=== PATIENT | female | born 1945 | race Caucasian/White ===

== ENCOUNTER → 2018-03-12 08:55 | Outpatient (CLI) | payer MEDICARE, OTHER, SELFPAY ==
--- NOTE | 2018-03-12 08:55 | DT_ITS ---
This patient was seen during an EMR downtime March 12, 2018 - March 19, 2018. This patient may have a combination of paper and electronic documentation or all paper documentation. All documentation is viewable within the e-chart portion of [facility] for each patient visit.
== END ==
PROVIDERS: Visit Provider Internal Medicine Cardiovascular Disease
DX: I49.9 Cardiac arrhythmia, unspecified (principal); I49.40 Unspecified premature depolarization
CPT/HCPCS: 93225; 93226

== ENCOUNTER → 2018-03-27 07:54 | Outpatient (CLI) | payer MEDICARE, OTHER, SELFPAY ==
[2018-03-27 09:57] LABS: AST(SGOT) 14 U/L (15-37); Alanine Aminotransfer ALT/SGPT 16 U/L (16-61); Albumin, Serum 3.7 g/dL (3.2-5.0); Alkaline Phosphatase 93 U/L (45-117); Cholesterol 190 mg/dL (200); Globulin 3.2 g/dL (2.2-4.2); High Density Lipoprotein 52 mg/dL; Protein, Total 6.9 g/dL (6.4-8.2); Triglycerides 142 mg/dL; Very Low Density Lipoprotein 28 mg/dL (5-40)
== END ==
PROVIDERS: Visit Provider Internal Medicine Cardiovascular Disease
DX: I35.9 Nonrheumatic aortic valve disorder, unspecified (principal); I49.49 Other premature depolarization; I36.1 Nonrheumatic tricuspid (valve) insufficiency; I34.0 Nonrheumatic mitral (valve) insufficiency; E78.5 Hyperlipidemia, unspecified
CPT/HCPCS: 36415; 80061; 80076

== ENCOUNTER 2019-03-12 18:13 | Emergency (ER) | payer OTHER, MEDICARE, SELFPAY ==
[2019-03-12 18:14] VITALS: BP 158/82; PULSE 80; RESP 18; TEMP 36.7; O2SAT 96; BMI 25.7
--- NOTE | 2019-03-12 18:38 | RAD_ITS ---
STUDY: X-RAY CHEST REASON FOR EXAM: Female, 73 years old. Posttraumatic pain TECHNIQUE: PA and lateral COMPARISON: None. FINDINGS: The lungs are clear and expanded. There is no demonstrated pleural abnormality. Normal size heart. Normal mediastinum and leo. Normal visualized pulmonary arteries. Normal visualized aortic arch and descending thoracic aorta. Dorsal spine demonstrates mild spondylosis. Normal visualized ribs, clavicles, and shoulders. There is no demonstrated abnormality of the visualized soft tissue structures of the upper abdomen. RAD/Chest PA and Lateral IMPRESSION: No acute cardiopulmonary pathology. Electronically Signed: Talib Garcia MD at 19:33 EDT , Service support ,
--- NOTE | 2019-03-12 18:38 | RAD_ITS ---
STUDY: X-RAY - THORACIC SPINE REASON FOR EXAM: Female, 73 years old. Trauma TECHNIQUE: 2 view(s) of the thoracic spine were obtained. COMPARISON: None. FINDINGS: Normal kyphosis of the thoracic spine. There is no substantial scoliosis. No evidence for acute fracture or subluxation. Disc space heights are well-maintained although there is mild multilevel osteophytic spurring. The soft tissue structures are unremarkable. RAD/Thoracic Spine 2 Views IMPRESSION: Mild spondylosis.. No evidence for acute fracture or subluxation. Electronically Signed: Talib Garcia MD at 19:32 EDT , Service support ,
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
[2019-03-12 20:05] VITALS: BP 146/68; PULSE 80; RESP 18; O2SAT 98
== END 2019-03-12 20:09 | disposition home or self-care (01) ==
PROVIDERS: Emergency Provider Emergency Medicine
DX: S20.219A Contusion of unspecified front wall of thorax, initial encounter (principal); S29.012A Strain of muscle and tendon of back wall of thorax, initial encounter; S82.831A Other fracture of upper and lower end of right fibula, initial encounter for closed fracture; V49.49XA Driver injured in collision with other motor vehicles in traffic accident, initial encounter; Y93.89 Activity, other specified; Y92.410 Unspecified street and highway as the place of occurrence of the external cause
CPT/HCPCS: 71046; 72070; 73610; 99285

== ENCOUNTER → 2020-04-07 09:25 | Outpatient (CLI) | payer MEDICARE, OTHER, SELFPAY ==
[2020-03-27 14:02] VITALS: BMI 23.0
== END ==
PROVIDERS: Referring Provider Internal Medicine Cardiovascular Disease; Visit Provider Internal Medicine Cardiovascular Disease
DX: I49.1 Atrial premature depolarization (principal); I49.3 Ventricular premature depolarization; I35.9 Nonrheumatic aortic valve disorder, unspecified; I34.0 Nonrheumatic mitral (valve) insufficiency; I36.1 Nonrheumatic tricuspid (valve) insufficiency
CPT/HCPCS: 93225; 93226

== ENCOUNTER → 2020-04-16 07:44 | Outpatient (CLI) | payer MEDICARE, OTHER, SELFPAY ==
[2020-03-27 14:02] VITALS: BMI 23.0
[2020-04-16 08:45] LABS: AST(SGOT) 15 U/L (15-37); Alanine Aminotransfer ALT/SGPT 24 U/L (13-56); Albumin, Serum 3.8 g/dL (3.2-5.0); Alkaline Phosphatase 95 U/L (45-117); Anion Gap 4 (5-15); BUN 21 mg/dL (7-18); BUN/Creat Ratio 28.3 RATIO (10-20); Bilirubin, Direct 0.18 mg/dL (0.00-0.30); Chloride 107 mmol/L (98-107); Cholesterol 211 mg/dL (200); Creatinine, Serum 0.74 mg/dL (0.55-1.02); EST Glomerular Filtration Rate 81 mL/min (>60); Est Glom Filt Rate - Afr Amer 98 mL/min (>60); Globulin 3.6 g/dL (2.2-4.2); Glucose 98 mg/dL (74-106); High Density Lipoprotein 66 mg/dL; Magnesium 2.4 mg/dL (1.6-2.6); Potassium 4.5 mmol/L (3.5-5.1); Protein, Total 7.4 g/dL (6.4-8.2); Sodium Level 142 mmol/L (136-145); Triglycerides 112 mg/dL; Very Low Density Lipoprotein 22 mg/dL (5-40)
== END ==
PROVIDERS: Referring Provider Internal Medicine Cardiovascular Disease; Visit Provider Internal Medicine Cardiovascular Disease
DX: I48.92 Unspecified atrial flutter (principal); I35.9 Nonrheumatic aortic valve disorder, unspecified; I36.1 Nonrheumatic tricuspid (valve) insufficiency; I34.0 Nonrheumatic mitral (valve) insufficiency
CPT/HCPCS: 36415; 80048; 80061; 80076; 83735

== ENCOUNTER → 2020-04-23 13:48 | Outpatient (CLI) | payer MEDICARE, OTHER, SELFPAY ==
[2020-03-27 14:02] VITALS: BMI 23.0
--- NOTE | 2020-04-23 13:49 | ECHOD_ITS ---
Reason For Study: VALVULAR DISORDER Procedure This was a 2D Doppler, Color Flow transthoracic echocardiogram. The exam was of adequate technical quality. Exam performed in department. Left Ventricle Normal LV size. Left ventricular systolic function is normal. The estimated ejection fraction is 60 %. No evidence for diastolic dysfunction. No regional wall motion abnormalities noted. Right Ventricle Normal RV size. Normal systolic function. Atria Normal left atrium. The right atrium is mildly enlarged. No doppler evidence for ASD. Mitral Valve There is no mitral annular calcification. Anterior leaflet diffuse mitral valve thickening. Mild focal mitral valve calcification of the anterior leaflet. Moderate (2+) mitral valve insufficiency. Tricuspid Valve Normal tricuspid valve. Mild to moderate (1-2+) tricuspid valve insufficiency. Right ventricular systolic pressure estimated to be 31 mmHg. Aortic Valve Trisinus/trileaflet aortic valve. Mild diffuse aortic valve thickening. Mild focal aortic valve calcification. Aortic sclerosis, no stenosis. Pulmonic Valve The pulmonic valve is not well visualized. Trivial pulmonic valve insufficiency. Great Vessels Normal sized aortic root. Pericardium/Pleural No pericardial effusion. MMode/2D Measurements & Calculations RVDd: 3.2 cm LVOT diam: 1.9 cm Ao root diam: 3.5 cm LVOT area: 2.8 cm2 LAV(MOD-bp): 34.9 ml LA dimension(2D): 3.0 cm LA A4 area: 12.2 cm2 LAV(MOD-bp) Indexed: 22.3 ml/m2 LAV(MOD-sp2): 36.5 ml LAV(MOD-sp4): 27.9 ml RA A4 area: 16.9 cm2 Time Measurements MV dec time: 0.28 sec Doppler Measurements & Calculations MV E max spencer: 30.2 cm/sec Lat Peak E' Spencer: 5.2 cm/sec Med Peak E' Spencer: 4.2 cm/sec MV A max spencer: 79.7 cm/sec E/E' lat: 5.8 E/E' med: 7.2 MV E/A: 0.38 Ao V2 max: 90.1 cm/sec LV V1 max: 71.6 cm/sec PA V2 max: 52.5 cm/sec Ao max P.3 mmHg LV V1 max P.0 mmHg ARACELI(V,D): 2.2 cm2 PI end-d spencer: 101.1 cm/sec TR max spencer: 265.8 cm/sec TR max P.3 mmHg Interpretation Summary Left ventricular systolic function is normal. The estimated ejection fraction is 60 %. The right atrium is mildly enlarged. Anterior leaflet diffuse mitral valve thickening. Mild focal mitral valve calcification of the anterior leaflet. Moderate (2+) mitral valve insufficiency. Mild to moderate (1-2+) tricuspid valve insufficiency. Aortic sclerosis, no stenosis. Trivial pulmonic valve insufficiency. Right ventricular systolic pressure estimated to be 31 mmHg. No evidence for diastolic dysfunction. Ordering Physician: Krzysztof Salomon Referring Physician: LAY ESCOBAR Performed By: Samira Sánchez, SHANNON, RVT
== END ==
PROVIDERS: Referring Provider Internal Medicine Cardiovascular Disease; Visit Provider Internal Medicine Cardiovascular Disease
DX: I49.49 Other premature depolarization (principal); I49.3 Ventricular premature depolarization; I35.9 Nonrheumatic aortic valve disorder, unspecified; I34.0 Nonrheumatic mitral (valve) insufficiency; I36.1 Nonrheumatic tricuspid (valve) insufficiency
CPT/HCPCS: 93306

== ENCOUNTER → 2020-05-19 10:10 | Outpatient (CLI) | payer MEDICARE, OTHER, SELFPAY ==
[2020-03-27 14:02] VITALS: BMI 23.0
[2020-05-19 10:45] LABS: Absolute Lymphocyte Count 1.63 X10^3/uL (0.83-4.51); Absolute Neutrophil Count 4.1 X10^3/uL (2.0-7.7); Basophil# 0.05 X10^3/uL; Basophil% 0.8 % (0-1); Eosinophil# 0.07 X10^3/uL; Eosinophils% 1.1 % (0-5); Hematocrit 41.8 % (37-47); Hemoglobin 13.5 g/dL (12.0-15.0); Lymphocyte # 1.63 X10^3/ul (4.0); Lymphocyte % 25.5 % (19-41); Mean Corp Hgb Conc 32.3 g/dL (32-36); Mean Corpuscular Hgb 28.5 pg (27.0-32.0); Mean Corpuscular Volume 88.4 fL (81-99); Monocyte# 0.54 X10^3/uL; Monocyte% 8.5 % (0-10); NRBC Flagged by Analyzer 0 % (0-5); Neutrophil # 4.08 X10^3/uL (2.7-7.7); Neutrophil % 63.8 % (47-70); Platelet Count 262 K/mm3 (150-450); RBC Distribution Width SD 41.8 fl (35.1-43.9); Red Blood Count 4.73 M/mm3 (4.2-5.4); White Blood Count 6.4 K/mm3 (4.4-11.0)
== END ==
PROVIDERS: Referring Provider Physician Assistant Medical; Visit Provider Physician Assistant Medical
DX: R19.5 Other fecal abnormalities (principal)
CPT/HCPCS: 36415; 85025

== ENCOUNTER → 2020-05-20 06:06 | Outpatient (CLI) | payer MEDICARE, OTHER, SELFPAY ==
[2020-03-27 14:02] VITALS: BMI 23.0
== END ==
PROVIDERS: Referring Provider Physician Assistant Medical; Visit Provider Physician Assistant Medical
DX: R19.5 Other fecal abnormalities (principal)
CPT/HCPCS: 82274

== ENCOUNTER 2020-06-16 05:11 | Day surgery (SDC) | payer MEDICARE, OTHER, SELFPAY ==
[2020-06-01 13:56] VITALS: BMI 23.0
[2020-06-16] VITALS (10 sets, daily range): BP systolic 102–135; BP diastolic 63–94; PULSE 59–70; RESP 14–16; TEMP 35.9–36.3; O2SAT 94–100
--- NOTE | 2020-06-16 05:42 | PCM.HP.BLA ---
Problem List (1) Guaiac positive stools Status: Acute (2) Diarrhea Status: Acute Qualifiers: (3) Family history of malignant neoplasm of colon in father Status: Acute History and Physical Date of Admission: 06/16/20 Intake Visit Reasons: Blood in Stool Chief Complaint: positive stool occult blood Track Sweeper Required: No Is patient in pain?: No Allergies antidiarrheals Allergy (Severe, Uncoded 03/27/20 14:04) Hives Medications valacyclovir 1 gram tablet 1,000 mg PO QDAY 02/28/18 [History Confirmed 06/01/20] doxylamine succinate 25 mg tablet 25 mg PO QHS PRN 03/01/18 [History Confirmed 06/01/20] ibuprofen 200 mg capsule 200 mg PO QDAY cap 03/01/18 [History Confirmed 06/01/20] pramipexole 0.125 mg tablet 0.125 mg PO QHS 06/01/20 [History Confirmed 06/01/20] pramipexole 0.25 mg tablet 0.25 mg PO DAILY tab 06/01/20 [History Confirmed 06/01/20] [facility] Medical History (Updated 06/01/20 @ 14:[address] Madi Hobbs MD) Family history of malignant neoplasm of colon in father (Acute) Diarrhea (Acute) Guaiac positive stools (Acute) Pure hypercholesterolemia (Chronic) Paroxysmal atrial flutter (Acute) Nonrheumatic aortic valve disorder (Acute) Premature beats (Acute) Nonrheumatic tricuspid valve regurgitation (Acute) Nonrheumatic mitral valve regurgitation (Acute) Blood in stool (Acute) Positive occult stool blood test (Acute) Surgical History History of carpal tunnel surgery (Resolved) History of total hysterectomy (Resolved) Family History Grandmother Heart disease Social History (Updated 06/01/20 @ 14:[address] 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 The patient is referred by Dr. Krzysztof Salomon and by KATIA Whitman and a written copy my surgical consult will be returned to them. 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 She on a routine health care cardiac check was found to have atrial flutter. She was tested with a Holter monitor and echocardiogram. She has known mitral and tricuspid insufficiency. She had been on low-dose aspirin. She was asked to hold that she was initiated on Eliquis. Simultaneously however she was still on ibuprofen 200 mg a day. She noted onset of explosive diarrhea and it was quite dark. She was instructed to stop the Eliquis. She did take some Kaopectate which has completely stopped the diarrhea. As of May 19, 2020 her white blood cell count was 6.4 with a hemoglobin 13.5 hematocrit 41.8 platelet count of 262,000 and a normal differential. Her stool was Hemoccult positive. She does have a family history of colon cancer in her father. That was a rectal cancer. Her previous colonoscopy was [address] Bravo. She states that she herself has not had a history of colon polyps or malignancy. 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, is a 75 F who presents to the office today for ROS General General: Yes weight change; no appetite, fatigue, colon cancer, breast cancer or weakness HEENT HEENT: No difficulty swallowing, eye injury, eye surgery, swollen glands or hoarseness Endo Endocrine: No thyroid disease, diabetes mellitus, thyroid cancer, Hair loss, heat intolerance or cold intolerance Skin Skin: No rash or changing moles Breast Breast: No left breast lump, right breast lump, nipple discharge, breast pain, abnormal mammogram, abnormal US or breast enlargement Musc Musculoskeletal: Yes back problems and arthritis; no rheumatoid arthritis, gout or joint pain Cardio Cardiovascular: Yes heart disease and atrial fibrillation; no murmur, pacemaker, high blood pressure, heart attack, heart stent, palpitations, shortness of breat with exertion or chest pain Psych Psychiatric: No depression, anxiety or hearing voices Resp Respiratory: No shortness of breath, No sleep apnea, No cough, No COPD, No asthma, No emphysema, No wheezing Gastro Gastrointestinal: No abdominal pain, No nausea or vomiting, Yes diarrhea, Yes constipation, Yes blood in stool, Yes acid reflux, Yes hemorrhoids, No ulcers, No gallbladder problem, Yes black,tarry stools Guillaume Hematologic: Yes blood thinners, No blood disorders, No bleeding, No anemia, No blood clots Neuro Neurologic: No system reviewed and no additional complaints, except as docu, No as per HPI, No abnormal walking, No abnormal hearing, No abnormal movements, No abnormal speech, No behavioral changes, No burning sensations, No confusion, No seizure-like activity, No unsteadiness, No dizziness, No localized weakness, No frequent falls, No headache(s), No lack of coordination, No loss of vision, No memory loss, No numbness, No other visual disturbances, No radiating pain, No restless legs, No sensory deficit, No fainting, No tingling, No tremor(s), No weakness, No other Exam Const General: cooperative, healthy appearing, comfortable, no acute distress Nutritional Appearance: average body habitus Orientation: alert, awake HENMT Head: normal to inspection Chest Breast Palpation: No nipple discharge Resp Effort & Inspection: normal respiratory effort Auscultation: clear to auscultation bilaterally Cardio Rate: regular rate Rhythm: regular rhythm Heart Sounds: no murmurs GI Palpation: soft, no hepatosplenomegaly Auscultation: normal bowel sounds Neuro Cognition: normal cognition Extrem General: no calf tenderness Psych Affect: normal affect Assessment & Plan Problems 1. Guaiac positive stools R19.5 2. Diarrhea, unspecified type R19.7 3. Family history of malignant neoplasm of colon in father Z80.0 Plan 75-year-old female who had explosive dark diarrhea that was Hemoccult positive. At that time she had been placed on Eliquis and she was still taking ibuprofen. She has stopped the Eliquis and her stools resumed normal coloration. CBC is normal. She has a family history of colon cancer in her father. Previous colonoscopy 2011. Suspicious for possible NSAID associated gastritis. However with the features of presentation I am recommending to her a esophagogastroduodenoscopy with possible biopsy or polypectomy as well as a colonoscopy with possible biopsy or polypectomy as indicated. I have instructed her to stay off her ibuprofen. Further instructed her that if she does get resumed on future anticoagulant that acetaminophen would be a safer pain medication for her. She has had an opportunity ask and have questions answered. She is aware of the Covid-19 pandemic. She is aware that the [facility] is currently reporting a low local incidence. While awaiting COVID testing we will schedule her after the required timeline. Appreciate the opportunity of assisting with her surgical care Copy: Dr. Krzysztof Salomon and KATIA Whitman, and Dr. Lou Hobbs M.D., F.A.C.S. Coding Level of Care Code 43851 Diagnoses Guaiac positive stools R19.5 Diarrhea, unspecified type R19.7 ??Diarrhea type: unspecified type Family history of malignant neoplasm of colon in father Z80.0 I have re-examined the patient. There are no clinical changes since date of exam. Procedure Criteria Procedure Type: Elective COVID Risk Discussion: The surgeon/proceduralist and patient have discussed in detail the risk of exposure to and/or potential harm posed by the COVID-19 virus with having a surgery/procedure at this time versus the risk of delaying the surgery/procedure. It is not possible to know either the risk of delaying the surgery or procedure or chance of getting an infection with perfect accuracy, but a joint decision was made between the patient and the surgeon/proceduralist to proceed at this time with the scheduled surgery/procedure as indicated on the consent form.
[2020-06-16] MEDS: Lactated Ringers 1,000 ML 100 ML IV ×2 (06:19→07:33)
--- NOTE | 2020-06-16 06:30 | IMM_PTH ---
PATIENT: ELISA SELLERS LOC: EN U#:[id number] AGE/SX: 75/F ROOM: RE06/16/[address]: Dr. Madi Hobbs MD : 1945 BED: DIS: 06/16/2020 SPEC #: [id number] RECD: 06/16/20 14:15 STATUS: KAMRAN REJared #: [id number] MAKENNA: 06/16/20 06:[address]: Madi Hobbs DEPT: IMMUNOHISTOCHEMISTRY RECD BY: Estee Scott ENTERED: 06/16/20 14:15 SP TYPE: IMMUNO OTHR DR: Dr. Lou Parker, Tissues: B - Stomach, NOS Procedures: H Pylori (initial) PHYSICIAN & INSTITUTION [place] [id number] SPECIMEN INFORMATION: Tissue Source: B - Antrum biopsy Clinical Info: Guaiac positive stools, diarrhea Specimen Number: [id number] CPT code: 54560 METHODOLOGY: Deparaffinized sections of prefer/formalin-fixed tissue or PAP/DQ stained slides are incubated with monoclonal/polyclonal antibodies/oligonucleotide probes. Localization is made via biotin free immunoperoxidase method. Appropriate controls are performed and reacted as expected. Results on target cell population are indicated in the following table: RESULTS: ANTIBODY / CLONE RESULT Block B H Pylori (polyclonal) negative These tests were developed and their performance characteristics determined by [facility]. They may not have been cleared or approved by the U.S. Food and Drug Administration. The FDA has determined that such clearance or approval is not necessary. INTERPRETATION: B. Antrum biopsy: Negative for Helicobacter pylori organisms. AM:livia 06/17/20
--- NOTE | 2020-06-16 06:30 | EGD_PTH ---
PATIENT: ELISA SELLERS LOC: EN U#:[id number] AGE/SX: 75/F ROOM: RE06/16/[address]: Dr. Madi Hobbs MD : 1945 BED: DIS: 06/16/2020 SPEC #: [id number] RECD: 06/16/20 09:41 STATUS: KAMRAN SIDNEY #: [id number] MAKENNA: 06/16/20 06:[address]: Madi Hobbs DEPT: SURGICAL PATHOLOGY RECD BY: Erik Lindsey ENTERED: 06/16/20 11:05 SP TYPE: EGD BIOPSY OT DR: Dr. Lou Parker, DO Tissues: A - Duodenum, NOS B - Gastric mucous membrane C - Esophageal mucous membrane D - Gastric mucous membrane E - Esophageal mucous membrane F - COLON BIOPSY G - COLON BIOPSY Procedures: Special Stain Group I Surgery Specimen Level IV GMS Stain (control) HEADER OPERATION: Colonoscopy, EGD (MOD) PRE-OP DIAGNOSIS: Guaiac positive stools, diarrhea TISSUE SUBMITTED: A - Duodenum biopsy, B - Antrum biopsy for histo and H. pylori, C - Distal esophagus biopsy, D - EG junction biopsy, E - Mid esophagus biopsy, F - Random colonic biopsy, G - Splenic flexure polyp biopsy MICROSCOPIC DIAGNOSIS A. Duodenum, biopsy: No pathologic change. B. Gastric antrum, biopsy: Minimal chronic inflammation. See comment. C. Distal esophagus, biopsy: Minimal acute inflammation. Negative for fungal organisms. See microscopic description and comment. D. Gastroesophageal junction, biopsy: Fragments of benign squamous mucosa. No evidence of inflammation. E. Mid esophagus, biopsy: Mild acute inflammation. Negative for fungal organisms. See comment. F. Colon, random biopsy: No pathologic change. G. Colonic polyp at splenic flexure, biopsy: Fragments of tubular adenoma. AM:livia 06/17/20 COMMENT B. The results of immunohistochemistry for Helicobacter pylori will be reported separately ([id number]). C. GMS stain with matched control was used in the evaluation of this case. E. GMS stain with matched control was used in the evaluation of this case. MICROSCOPIC DESCRIPTION Slides are reviewed. C. Rare neutrophils are seen in the epithelium. GROSS DESCRIPTION A - Received in fixative is one container labeled with the patient's name and designated duodenum biopsy. The specimen consists of one irregular fragment of light higgins soft tissue that measures 0.4 x 0.3 x 0.1 cm. The specimen is totally submitted in one cassette. B - Received in fixative is one container labeled with the patient's name and designated antrum biopsy. The specimen consists of one irregular fragment of light higgins soft tissue that measures 0.3 x 0.3 x 0.1 cm. The specimen is totally submitted in one cassette. C - Received in fixative is one container labeled with the patient's name and designated distal esophagus biopsy. The specimen consists of multiple irregular fragments of light higgins soft tissue that in aggregate measure 1.3 x 0.5 x 0.1 cm. The specimen is totally submitted in one cassette. D - Received in fixative is one container labeled with the patient's name and designated EG junction biopsy. The specimen consists of one irregular fragment of light higgins soft tissue that measures 0.3 x 0.3 x 0.1 cm. The specimen is totally submitted in one cassette. E - Received in fixative is one container labeled with the patient's name and designated mid esophagus biopsy. The specimen consists of two irregular fragments of light higgins soft tissue that in aggregate measure 0.5 x 0.3 x 0.1 cm. The specimen is totally submitted in one cassette. F - Received in fixative is one container labeled with the patient's name and designated random colonic biopsy. The specimen consists of multiple irregular fragments of light higgins soft tissue that in aggregate measure 1.4 x 0.6 x 0.1 cm. The specimen is totally submitted in one cassette. G - Received in fixative is one container labeled with the patient's name and designated splenic flexure polyp biopsy. The specimen consists of one irregular fragment of light higgins soft tissue that measures 0.3 x 0.3 x 0.1 cm. The specimen is totally submitted in one cassette. / SJ:rg 06/16/20 TC:2 CPT: 15252 x7, 68114 x2
--- NOTE | 2020-06-16 07:02 | OP.EGD_ITS ---
Patient Name: Ariana Hutchinson Procedure Date: 06/16/2020 5:59 AM Date of : 1945 Age: 75 Procedure: Upper GI endoscopy Indications: Heme positive stool Providers: Madi Hobbs MD Referring MD: Lou Parker Medicines: Midazolam 2 mg IV, Meperidine 75 mg IV Complications: No immediate complications. Procedure: Pre-Anesthesia Assessment: - Prior to the procedure, a History and Physical was performed, and patient medications and allergies were reviewed. The patient's tolerance of previous anesthesia was also reviewed. The risks and benefits of the procedure and the sedation options and risks were discussed with the patient. All questions were answered, and informed consent was obtained. Prior Anticoagulants: The patient has taken Eliquis (apixaban). ASA Grade Assessment: II - A patient with mild systemic disease. After reviewing the risks and benefits, the patient was deemed in satisfactory condition to undergo the procedure. After obtaining informed consent, the endoscope was passed under direct vision. Throughout the procedure, the patient's blood pressure, pulse, and oxygen saturations were monitored continuously. The gastroscope was introduced through the mouth, and advanced to the second part of duodenum. The upper GI endoscopy was accomplished without difficulty. The patient tolerated the procedure well. Moderate Sedation: Moderate (conscious) sedation was personally administered by the endoscopist. The following parameters were monitored: oxygen saturation, heart rate, blood pressure, and response to care. Total physician intraservice time was 15 minutes. Scope In: 6:32:08 AM Scope Out: 6:37:14 AM Total Procedure Duration Time 0 hours 5 minutes 6 seconds Findings: Esophagitis with no bleeding was found 40 cm from the incisors. Biopsies were taken with a cold forceps for histology distal esophagus The mid esophagus was normal. Biopsies were taken with a cold forceps for histology. A medium-sized hiatal hernia was present. Biopsies were taken with a cold forceps for histology of the EG junction. The entire examined stomach was normal. Biopsies were taken with a cold forceps for histology. The examined duodenum was normal. Biopsies were taken with a cold forceps for histology. Impression: - Reflux esophagitis. Biopsied distal esophagus. - Normal mid esophagus. Biopsied. - Medium-sized hiatal hernia. Biopsied EG junction - Normal stomach. Biopsied. - Normal examined duodenum. Biopsied. Recommendation: - Discharge patient to home. - Resume previous diet. - Continue present medications. - Use Prilosec (omeprazole) 40 mg PO daily. These findings could have caused a hemocult positive result Procedure Code(s): --- Professional --- 39641, Esophagogastroduodenoscopy, flexible, transoral; with biopsy, single or multiple 71549, 59, Moderate sedation services provided by the same physician or other qualified health senior care assistant performing the diagnostic or therapeutic service that the sedation supports, requiring the presence of an independent trained observer to assist in the monitoring of the patient's level of consciousness and physiological status; initial 15 minutes of intraservice time, patient age 5 years or older Diagnosis Code(s): --- Professional --- K21.0, Gastro-esophageal reflux disease with esophagitis K44.9, Diaphragmatic hernia without obstruction or gangrene R19.5, Other fecal abnormalities CPT copyright 2017 [employer]. All rights reserved. The codes documented in this report are preliminary and upon security intern review may be revised to meet current compliance requirements. Madi Hobbs MD 06/16/2020 7:01:04 AM This report has been signed electronically. Number of Addenda: 0 Note Initiated On: 06/16/2020 5:59 AM
--- NOTE | 2020-06-16 07:02 | OP.CCLET_ITS ---
06/16/2020 Lou Parker Re : Upper GI endoscopy procedure for Ariana Hutchinson Dear Keith This procedure was performed on Tuesday, June 16, 2020. My impressions and recommendations are as follows: Impressions : - Reflux esophagitis. Biopsied distal esophagus. - Normal mid esophagus. Biopsied. - Medium-sized hiatal hernia. Biopsied EG junction - Normal stomach. Biopsied. - Normal examined duodenum. Biopsied. Recommendations : - Discharge patient to home. - Resume previous diet. - Continue present medications. - Use Prilosec (omeprazole) 40 mg PO daily. These findings could have caused a hemocult positive result My findings are described in the full procedure note, which is enclosed. If I can be of further assistance, please feel free to contact me at Doctor phone number(s): Work: . Sincerely, Madi Hobbs MD 06/16/2020 7:01:04 AM This report has been signed electronically.
--- NOTE | 2020-06-16 07:05 | OP.COLON_ITS ---
Patient Name: Ariana Hutchinson Procedure Date: 06/16/2020 6:37 AM Date of : 1945 Age: 75 Procedure: Colonoscopy Indications: Clinically significant diarrhea of unexplained origin, Heme positive stool Providers: Maid Hobbs MD Referring MD: Lou Parker Medicines: Midazolam 1 mg IV Patient Profile: Last Colonoscopy: 2011. Complications: No immediate complications. Procedure: Pre-Anesthesia Assessment: - Prior to the procedure, a History and Physical was performed, and patient medications and allergies were reviewed. The patient's tolerance of previous anesthesia was also reviewed. The risks and benefits of the procedure and the sedation options and risks were discussed with the patient. All questions were answered, and informed consent was obtained. Prior Anticoagulants: The patient has taken Eliquis (apixaban). ASA Grade Assessment: II - A patient with mild systemic disease. After reviewing the risks and benefits, the patient was deemed in satisfactory condition to undergo the procedure. After I obtained informed consent, the scope was passed under direct vision. Throughout the procedure, the patient's blood pressure, pulse, and oxygen saturations were monitored continuously. The pediatric colonoscope was introduced through the anus and advanced to the cecum, identified by appendiceal orifice and ileocecal valve. The colonoscopy was performed without difficulty. The patient tolerated the procedure well. The quality of the bowel preparation was good. The ileocecal valve and the appendiceal orifice were photographed. Moderate Sedation: Moderate (conscious) sedation was personally administered by the endoscopist. The following parameters were monitored: oxygen saturation, heart rate, blood pressure, and response to care. Total physician intraservice time was 15 minutes. Scope In: 6:39:24 AM Scope Withdrawal Time 0 hours 8 minutes 18 seconds Scope Out: 6:51:58 AM Total Procedure Duration Time 0 hours 12 minutes 34 seconds Findings: The digital rectal exam findings include non-thrombosed external hemorrhoids, non-thrombosed internal hemorrhoids and internal hemorrhoids that prolapse with straining, but spontaneously regress to the resting position (Grade II). A 5 mm polyp was found in the splenic flexure. The polyp was sessile. The polyp was removed with a cold biopsy forceps. Resection and retrieval were complete. Biopsies for histology were taken with a cold forceps from the entire colon for evaluation of microscopic colitis. Multiple diverticula were found in the sigmoid colon. Impression: - Non-thrombosed external hemorrhoids, non-thrombosed internal hemorrhoids and internal hemorrhoids that prolapse with straining, but spontaneously regress to the resting position (Grade II) found on digital rectal exam. - One 5 mm polyp at the splenic flexure, removed with a cold biopsy forceps. Resected and retrieved. Biopsied. - Diverticulosis in the sigmoid colon. Recommendation: - Discharge patient to home. - Resume previous diet. - Continue present medications. - Await pathology results. - Telephone my office for pathology results in 1 week. - Repeat colonoscopy in 5 years for surveillance based on pathology results. Procedure Code(s): --- Professional --- 85214, Colonoscopy, flexible; with biopsy, single or multiple 28715, 59, Moderate sedation services provided by the same physician or other qualified health patient care technician instructor performing the diagnostic or therapeutic service that the sedation supports, requiring the presence of an independent trained observer to assist in the monitoring of the patient's level of consciousness and physiological status; initial 15 minutes of intraservice time, patient age 5 years or older Diagnosis Code(s): --- Professional --- K64.1, Second degree hemorrhoids K64.4, Residual hemorrhoidal skin tags D12.3, Benign neoplasm of transverse colon (hepatic flexure or splenic flexure) R19.7, Diarrhea, unspecified R19.5, Other fecal abnormalities K57.30, Diverticulosis of large intestine without perforation or abscess without bleeding CPT copyright 2017 [employer]. All rights reserved. The codes documented in this report are preliminary and upon physical therapist center manager review may be revised to meet current compliance requirements. Madi Hobbs MD 06/16/2020 7:04:50 AM This report has been signed electronically. Number of Addenda: 0 Note Initiated On: 06/16/2020 6:37 AM
--- NOTE | 2020-06-16 07:05 | OP.CCLET_ITS ---
06/16/2020 Lou Parker Re : Colonoscopy procedure for Ariana Hutchinson Dear Keith This procedure was performed on Tuesday, June 16, 2020. My impressions and recommendations are as follows: Impressions : - Non-thrombosed external hemorrhoids, non-thrombosed internal hemorrhoids and internal hemorrhoids that prolapse with straining, but spontaneously regress to the resting position (Grade II) found on digital rectal exam. - One 5 mm polyp at the splenic flexure, removed with a cold biopsy forceps. Resected and retrieved. Biopsied. - Diverticulosis in the sigmoid colon. Recommendations : - Discharge patient to home. - Resume previous diet. - Continue present medications. - Await pathology results. - Telephone my office for pathology results in 1 week. - Repeat colonoscopy in 5 years for surveillance based on pathology results. My findings are described in the full procedure note, which is enclosed. If I can be of further assistance, please feel free to contact me at Doctor phone number(s): Work: . Sincerely, Madi Hobbs MD 06/16/2020 7:04:50 AM This report has been signed electronically.
== END 2020-06-16 08:26 | disposition home or self-care (01) ==
LOC: EN 05:12 → AC 05:20
PROVIDERS: Visit Provider Surgery
PROC: 0DJD8ZZ Inspection of Lower Intestinal Tract, Via Natural or Artificial Opening Endoscopic (ICD-10-PCS; CPT 45378; principal; 2020-06-16 06:25)
DX: K21.0 Gastro-esophageal reflux disease with esophagitis (principal); K44.9 Diaphragmatic hernia without obstruction or gangrene; D12.3 Benign neoplasm of transverse colon; K64.1 Second degree hemorrhoids; K64.4 Residual hemorrhoidal skin tags; K57.30 Diverticulosis of large intestine without perforation or abscess without bleeding; R19.5 Other fecal abnormalities; R19.7 Diarrhea, unspecified; I08.3 Combined rheumatic disorders of mitral, aortic and tricuspid valves; E78.00 Pure hypercholesterolemia, unspecified; Z79.01 Long term (current) use of anticoagulants; Z79.1 Long term (current) use of non-steroidal anti-inflammatories (NSAID); Z11.59 Encounter for screening for other viral diseases; Z80.0 Family history of malignant neoplasm of digestive organs
CPT/HCPCS: 43239; 45380; 87635; 88305; 88312; 88342; 99152; 99153; C9803; J7120; U0003

== ENCOUNTER 2022-01-12 14:25 | Emergency (ER) | payer OTHER, MEDICARE, SELFPAY ==
[2022-01-12 14:26] VITALS: BP 138/93; PULSE 117; RESP 22; TEMP 36.5; O2SAT 97; BMI 24.8
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
--- NOTE | 2022-01-12 14:46 | EKG12_ITS ---
Test Reason : Blood Pressure : / mmHG Vent. Rate : 080 BPM Atrial Rate : 080 BPM P-R Int : 130 ms QRS Dur : 080 ms QT Int : 390 ms P-R-T Axes : 058 040 028 degrees QTc Int : 449 ms Normal sinus rhythm Low voltage QRS Borderline ECG Confirmed by BETHANY GOODMAN, FLAVIA ([id number]), slot editor RADHA MARTINEZ ([id number]) on 01/19/2022 10:25:17 AM Referred By: VICENTA/CORNEL Confirmed By:FLAVIA SIMS MD
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
[2022-01-12 15:51] VITALS: PULSE 109; RESP 16
== END 2022-01-12 15:52 | disposition home or self-care (01) ==
PROVIDERS: Emergency Provider Student in an Organized Health Care Education/Training Program; Visit Provider Student in an Organized Health Care Education/Training Program
DX: S80.12XA Contusion of left lower leg, initial encounter (principal); I48.0 Paroxysmal atrial fibrillation; V40.9XXA Unspecified car occupant injured in collision with pedestrian or animal in traffic accident, initial encounter; Y93.89 Activity, other specified; Z79.01 Long term (current) use of anticoagulants
CPT/HCPCS: 70450; 72125; 73590; 93005; 99284

== ENCOUNTER → 2022-02-24 | Outpatient (CLI) | payer MEDICARE, OTHER, SELFPAY ==
--- NOTE | 2022-02-24 07:39 | ECHOD_ITS ---
Reason For Study: MURMUR Procedure This was a 2D Doppler, Color Flow transthoracic echocardiogram. Exam performed in department. Left Ventricle Normal LV size. Left ventricular systolic function is normal. The estimated ejection fraction is 60 %. Diastolic function is indeterminate. No regional wall motion abnormalities noted. Right Ventricle Normal RV size. Normal systolic function. Atria Normal left atrium. The right atrium is mildly enlarged. No doppler evidence for ASD. Mitral Valve There is no mitral annular calcification. Mild diffuse mitral valve thickening. Equivocal mitral valve prolapse. Mild (1+) mitral valve insufficiency. Tricuspid Valve Normal tricuspid valve. Moderate (2+) tricuspid valve insufficiency. Right ventricular systolic pressure estimated to be 37 mmHg. Aortic Valve Trisinus/trileaflet aortic valve. Mild diffuse aortic valve thickening. Aortic sclerosis, no stenosis. Pulmonic Valve The pulmonic valve is not well visualized. Trivial pulmonic valve insufficiency. Great Vessels Normal sized aortic root. Pericardium/Pleural No pericardial effusion. MMode/2D Measurements & Calculations LVIDd: 3.9 cm IVSd: 0.82 cm Ao root diam: 3.2 cm LVIDs: 2.0 cm LVPWd: 0.81 cm RVDd: 3.3 cm FS: 48.3 % LAV(MOD-bp): 38.5 ml LVAd ap4: 21.7 cm2 SV(MOD-sp4): 31.7 ml LAV(MOD-bp) Indexed: 24.2 ml/m2 LVLd ap4: 7.2 cm LAV(MOD-sp2): 44.8 ml EDV(MOD-sp4): 54.5 ml LAV(MOD-sp4): 28.6 ml EDV(sp4-el): 55.4 ml LVAs ap4: 12.2 cm2 LVLs ap4: 5.7 cm ESV(MOD-sp4): 22.8 ml ESV(sp4-el): 22.2 ml EF(MOD-sp4): 58.2 % EF(sp4-el): 60.0 % SV(sp4-el): 33.2 ml LA A4 area: 11.6 cm2 LA dimension(2D): 3.6 cm RA A4 area: 18.9 cm2 Doppler Measurements & Calculations MV E max spencer: 55.6 cm/sec Lat Peak E' Spencer: 7.0 cm/sec Med Peak E' Spencer: 5.6 cm/sec MV A max spencer: 51.9 cm/sec E/E' lat: 8.0 E/E' med: 9.9 MV E/A: 1.1 Ao V2 max: 108.7 cm/sec LV V1 max: 60.4 cm/sec MR max spencer: 418.4 cm/sec Ao max P.7 mmHg LV V1 max P.5 mmHg MR max P.0 mmHg MR mean spencer: 372.6 cm/sec MR mean P.7 mmHg MR VTI: 165.6 cm PA V2 max: 56.4 cm/sec TR max spencer: 289.4 cm/sec TR max P.5 mmHg ECHO/Echo Complete Interpretation Summary Left ventricular systolic function is normal. The estimated ejection fraction is 60 %. The right atrium is mildly enlarged. Mild diffuse mitral valve thickening. Equivocal mitral valve prolapse. Mild (1+) mitral valve insufficiency. Moderate (2+) tricuspid valve insufficiency. Mild diffuse aortic valve thickening. Aortic sclerosis, no stenosis. Trivial pulmonic valve insufficiency. Right ventricular systolic pressure estimated to be 37 mmHg. Diastolic function is indeterminate. Ordering Physician: Krzysztof Salomon Referring Physician: Krzysztof Salomon Performed By: Jesi Martines RCS
== END | disposition home or self-care (01) ==
LOC: CVS 07:39
PROVIDERS: Referring Provider Internal Medicine Cardiovascular Disease; Visit Provider Internal Medicine Cardiovascular Disease
DX: I34.0 Nonrheumatic mitral (valve) insufficiency (principal)
CPT/HCPCS: 93306

== ENCOUNTER → 2023-10-31 | Outpatient (CLI) | payer MEDICARE, OTHER, SELFPAY | END | disposition home or self-care (01) | LOC: PSN 13:26 | PROVIDERS: Referring Provider Internal Medicine Cardiovascular Disease; Visit Provider Internal Medicine Cardiovascular Disease | DX: R42 Dizziness and giddiness (principal); I48.92 Unspecified atrial flutter; R00.2 Palpitations; I49.49 Other premature depolarization | CPT/HCPCS: 93225; 93226 ==

== ENCOUNTER → 2024-05-09 | Outpatient (CLI) | payer MEDICARE, OTHER, SELFPAY ==
--- NOTE | 2024-05-09 16:17 | CYSPIN_PTH ---
PATIENT: ELISA SELLERS LOC: [facility] U#:[id number] AGE/SX: 79/F ROOM: RE05/09/[address]: Dr. Gely Valentin MD : 1945 BED: DIS: 05/09/2024 SPEC #: [id number] RECD: 05/10/24 07:52 STATUS: KAMRAN SIDNEY #: [id number] MAKENNA: 05/09/24 16:[address]: Gely Valentin DEPT: CYTOLOGY RECD BY: Paula Dangelo ENTERED: 05/10/24 07:52 SP TYPE: CYSPIN FL OTHR DR: Dr. Lou Parker, DO Tissues: Urine Procedures: Pap Stain (control) Special Stain Group II Cytospin Fluid HEADER OPERATION: Not noted PRE-OP DIAGNOSIS: Gross hematuria TISSUE SUBMITTED: Urine for cytology DIAGNOSIS CYTOLOGY Urine for cytology (cytospin ): Negative for high grade urothelial carcinoma. See comment. GRANT/ 05/10/2024 COMMENT Only rare epithelial cells are present. The specimen is insufficient for further evaluation. Clinical correlation is suggested. The [facility] System for urine cytology diagnostic categorization was used in the evaluation of this case. CYTOLOGY STUDY Slides are reviewed. CYTOLOGY GROSS Received is 50 ml of light-yellow cloudy fluid labeled with the patient's name and and designated per the requisition as urine. Submitted for cytology preparation. Mr 05/10/2024 TC:5 CPT: 37714
[2024-05-09 17:45] LABS: Cytology, Body Fluid / CSF SEE PATHOLOGY REPORT
[2024-05-09 18:01] LABS: Anion Gap 7 (5-15); BUN 15 mg/dL (7-18); BUN/Creat Ratio 19.3 RATIO (10-20); Calcium,Total 9.6 mg/dL (8.5-10.1); Chloride 103 mmol/L (98-107); Creatinine, Serum 0.78 mg/dL (0.55-1.02); EST Glomerular Filtration Rate 76 mL/min (>60); Est Glom Filt Rate - Afr Amer 92 mL/min (>60); Glucose 73 mg/dL (74-106); Potassium 4.3 mmol/L (3.5-5.1); Sodium Level 138 mmol/L (136-145)
== END | disposition home or self-care (01) ==
PROVIDERS: Referring Provider Urology; Visit Provider Urology
DX: R31.0 Gross hematuria (principal)
CPT/HCPCS: 36415; 80048; 88108; 88313

== ENCOUNTER → 2024-05-21 | Outpatient (CLI) | payer MEDICARE, OTHER, SELFPAY ==
--- NOTE | 2024-05-21 14:39 | CT_ITS ---
STUDY: CT ABDOMEN AND PELVIS WITH AND WITHOUT CONTRAST REASON FOR EXAM: Female, 79 years old. GROSS HEMATURIA RADIATION DOSAGE (If Supplied By Facility): CTDIvol = ( 13.53 ) mGy, DLP = ( 2140.21 ) mGycm TECHNIQUE: Transaxial images were obtained from the dome of the diaphragm to the symphysis pubis without oral contrast. IV 100mL Isovue-300 was administered. Sagittal and coronal images were reconstructed. Individualized dose optimization techniques were used for this CT. COMPARISON: None. FINDINGS: The visualized lung bases are unremarkable. Coronary artery calcification. There is decreased attenuation of the liver consistent with steatosis. Normal gallbladder and extrahepatic biliary system. Normal spleen. Normal pancreas. Normal bilateral adrenal glands. There is a 4.8 cm x 4.4 cm x 4.5 cm cyst in the upper midportion of the right kidney. There is also evidence of a 1 cm cyst in the inferior medial portion of the right kidney. There is a 4.6 cm x 3.9 cm x 5.1 cm cyst in the upper pole of the left kidney. Normal visualized stomach. Normal small intestine. There are scattered colonic diverticula consistent with diverticulosis. There is non-visualization of the appendix. Normal abdominal aorta. Normal inferior vena cava. Normal retroperitoneum. Normal urinary bladder. There is absence of the uterus consistent with a prior hysterectomy. Normal abdominal wall. There are diffuse degenerative changes of the visualized lumbar spine. Dextroconvex scoliosis. CT/CT Abd/Pelvis W/WO Contrast IMPRESSION: Bilateral renal cysts. Sigmoid diverticulosis. Status post hysterectomy. Electronically Signed: Shayne Rodriguez MD at 9:10 EDT ,
== END | disposition home or self-care (01) ==
LOC: CT 14:37
PROVIDERS: Referring Provider Urology; Visit Provider Urology
DX: R31.0 Gross hematuria (principal)
CPT/HCPCS: 74178; Q9967

== ENCOUNTER → 2024-08-05 | Outpatient (CLI) | payer MEDICARE, OTHER, SELFPAY ==
--- NOTE | 2024-08-05 09:40 | ECHOD_ITS ---
Reason For Study: AFIB Procedure This was a 2D Doppler, Color Flow transthoracic echocardiogram. Exam performed in department. Left Ventricle Normal LV size. Left ventricular systolic function is normal. The left ventricular ejection fraction is 65 %. No regional wall motion abnormalities noted. Right Ventricle Normal RV size. Normal systolic function. Atria Normal left atrium. Normal right atrium. Mitral Valve Equivocal mitral valve prolapse. Tricuspid Valve Normal tricuspid valve. Mild tricuspid valve insufficiency. Right ventricular systolic pressure estimated to be 36 mmHg. Aortic Valve Trisinus/trileaflet aortic valve. Mild focal aortic valve calcification. Pulmonic Valve Normal pulmonic valve. Great Vessels Normal aortic root. The pulmonary artery is normal size. Inferior vena cava collapse with respiration. Pericardium/Pleural No pericardial effusion. MMode/2D Measurements & Calculations LVIDd: 4.0 cm IVSd: 0.72 cm LVOT diam: 1.6 cm LVIDs: 2.5 cm LVPWd: 0.78 cm LVOT area: 2.1 cm2 RVDd: 2.8 cm FS: 36.4 % Ao root diam: 3.5 cm LAV(MOD-bp): 32.3 ml LVAd ap4: 18.3 cm2 LAV(MOD-bp) Indexed: 20.0 ml/m2 LVLd ap4: 6.5 cm LAV(MOD-sp2): 35.1 ml EDV(MOD-sp4): 42.8 ml LAV(MOD-sp4): 29.1 ml EDV(sp4-el): 43.3 ml LVAs ap4: 9.4 cm2 LVLs ap4: 5.7 cm ESV(MOD-sp4): 14.8 ml ESV(sp4-el): 13.3 ml EF(MOD-sp4): 65.5 % EF(sp4-el): 69.3 % SV(MOD-sp4): 28.1 ml SV(sp4-el): 30.0 ml LA A4 area: 13.1 cm2 LA dimension(2D): 2.6 cm RA A4 area: 13.4 cm2 Time Measurements MV dec time: 0.23 sec Doppler Measurements & Calculations MV E max spencer: 53.6 cm/sec Lat Peak E' Spencer: 6.7 cm/sec Med Peak E' Spencer: 4.5 cm/sec MV A max spencer: 76.9 cm/sec E/E' lat: 8.0 E/E' med: 11.9 MV E/A: 0.70 MV V2 max: 79.7 cm/sec Ao V2 max: 110.0 cm/sec MV max P.5 mmHg MV dec slope: 248.3 cm/sec2 Ao max P.8 mmHg MV V2 mean: 35.9 cm/sec Ao V2 mean: 75.6 cm/sec MV mean P.70 mmHg Ao mean P.6 mmHg MV V2 VTI: 24.6 cm Ao V2 VTI: 24.1 cm AV (velocity ratio): 0.77 MVA(VTI): 1.6 cm2 ARACELI(I,D): 1.6 cm2 ARACELI(V,D): 1.6 cm2 LV V1 max: 83.7 cm/sec SV(LVOT): 38.7 ml PA V2 max: 84.8 cm/sec LV V1 max P.8 mmHg PA V2 mean: 58.3 cm/sec LV V1 mean P.7 mmHg LV V1 mean: 61.3 cm/sec LV V1 VTI: 18.6 cm TR max spencer: 287.2 cm/sec TR max P.0 mmHg ECHO/Echo Complete Interpretation Summary Normal LV size. Left ventricular systolic function is normal. The left ventricular ejection fraction is 65 %. Mild tricuspid valve insufficiency. Right ventricular systolic pressure estimated to be 36 mmHg. Equivocal mitral valve prolapse. Ordering Physician: Papi Garcia Referring Physician: Papi Garcia Performed By: Jesi Martines RCS
--- OUTSIDE RECORDS SUMMARY | 2024-08-05 10:23 | XMS RPT_ITS | CCD ---
Author Organization [facility] Care Team Providers Care Singeing Torch Operator Name Role Phone DR LAY ESCOBAR DO Primary Care Physician Susanna FERNANDES, Tiffanie Unavailable Unavailable Madi Holland Primary Care Provider Madi Holland Primary Care Provider Lay Escobar DO Primary Care Provider Yogesh Carson Unavailable DR LAY ESCOBAR DO Primary Care Physician DR LAY ESCOBAR DO Primary Care Physician Lay Escobar DO Primary Care Provider Yogesh Carson Unavailable Lay Escobar DO Primary Care Provider Lay Escobar DO Primary Care Provider BRYAN ECHEVARRIA DO Attending Unavailable LAY ESCOBAR Primary Care Unavailable LAY ESCOBAR Primary Care Unavailable GLENDY SMITH Attending Unavaila ble MEGHANN-GLENDY KUNZ Attending Unavaila LAY Gonzalez Primary Care Unavailable MEGHANNGLENDY MOJICA Admitting Unavaila GLENDY Foster Attending Unavaila LAY Gonzalez Primary Care Unavailable SHARLENE GOODMAN, DR ADENIKE Sethi Attending Unavailkaren e LAY ESCOBAR Primary Care Unavailable LAY ESCOBAR Primary Care Unavailable LAY ESCOBAR Attending Unavailable LAY ESCOBAR Primary Care Unavailable LAY ESCOBAR Attending Unavailable LAY ESCOBAR Primary Care Unavailable LAY ESCOBAR Attending Unavailable MEGHANN-GLENDY KUNZ DO Attending Mary vailable SHAWN MARX, DR CHUN Primary Care Unavailable SHAWN MARX, DR CHUN Primary Care Unavailable GLENDY SMITH DO Attending Mary erlin ESCOBAR DO, DR CHUN Primary Care Unavailable GLENDY SMITH DO Attending Mary lalable Madi Holland Primary Care Provider LAY ESCOBAR Primary Care Unavailable JACOBO ZAMORA Attending Unavailable TALIB AGUERO Attending Unavailable LAY ESCOBAR Primary Care Unavailable Lay Escobar DO Primary Care Provider [phone] Allergies Allergy Classification Reported Allergen(s) Allergy Type Date of Onset Reaction(s) Facility Opium (1 source) Opium; Translations: [opium] Drug Allergy [facility] (13 sources) Opium; Translations: [opium] Drug Allergy [facility] (15 sources) Paragoric; Translations: [PARAGORIC] [facility] Work Phone: Medications Current Medications Medication Drug Class(es) Dates Sig (Normalized) Sig (Original) amoxicillin 875 mg / clavulanate 125 mg oral tablet (1 source) Penicillin-class Antibacterial Start: 06-27-2022 End: 07-04-2022 take 1 tablet by mouth every twelve hours amoxicillin-clavul anate 875 mg-125 mg oral tablet 1 tab(s), Oral, q12h, X 7 day(s), # 14 tab(s), 0 Refill(s), 07/04/22 8:11:00 EDT, Pharmacy: [facility]/pharmacy #[id number], 155, cm, 06/27/22 7:53:00 EDT, Height, 61.7 Start Date: 06/27/22 Stop Date: 07/04/22 Status: Ordered apixaban 5 mg oral tablet (20 sources) Factor Xa Inhibitor Start: 01-19-2021 ELIQUIS 5 mg tab(s) 01/19/2021 Active PreserVision (11 sources) Vitamin C Start: 08-18-2020 take 1 tablet by mouth once daily PreserVision Dose = 1 tab(s), Oral, qDay, # 90 tab(s), 0 Refill(s) Start Date: 08/18/20 Status: Ordered Biotin (16 sources) Start: 08-18-2020 Biotin 5000 mcg oral capsule Dose : 5,000 mcg = 1 cap(s), Oral, Daily, 0 Refill(s) Start Date: 08/18/20 Status: Ordered biotin 5 mg casp ule 5 mg. Patient not sure of the dosage Active biotin-lutein 5,000 mcg- 10 mg tab (4 sources) Start: 08-18-2020 biotin-lutein 5,000 mcg- 10 mg tab Take by mouth. 08/18/2020 Active Start: 08-18-2020 biotin-lutein 5,000 mcg- 10 mg tab Take by mouth. 0 08/18/2020 Active Comment on above: Take by mouth. calcium carbonate 1250 mg / cholecalciferol 0.01 mg chewable tablet (3 sources) Vitamin D calcium carbonate-vitamin D3 (CALCIUM 500+D) 500 mg-10 mcg (400 unit) chewable tablet 1 tab(s) chewed 2 times a day Active Comment on above: 1 tab(s) chewed 2 ti mes a day Citracal Calcium + D Slow Release 1200 (5 sources) Start: 03-12-2024 Citracal Calcium + D Slow Release 1200 Oral, qAM, 0 Refill(s) Start Date: 03/12/24 Status: Ordered clobetasol propionate 0.0005 mg/mg topical gel (3 sources) Corticosteroid Clobetasol Propi sheyla 0.05 % gel 1 nate applied topically 2 times a day Active Comment on above: 1 nate applied topica lly 2 times a day cyclobenzaprine hydrochloride 10 mg oral tablet (9 sources) Muscle Relaxant Start: 05-09-2024 cyclobenzaprine (FLEXERIL) 10 mg tablet 05/09/2024 Active Start: 03-08-2024 End: 03-15-2024 cyclobenzaprine 10 mg oral t ablet Dose : 10 mg = 1 tab(s), Oral, TID, # 21 tab(s), 0 Refill(s) Start Date: 03/08/24 Stop Date: 03/15/24 Status: Ordered Start: 07-02-2022 End: 07-09-2022 cyclobenzaprine 10 mg oral t ablet Dose : 10 mg = 1 tab(s), Oral, TID, X 7 day(s), # 21 tab(s), 0 Refill(s), 07/09/22 12:04:00 EDT Start Date: 07/02/22 Stop Date: 07/09/22 Status: Ordered Start: 04-19-2017 End: 02-25-2021 take 1 tablet by mouth three times daily as needed cyclobenzaprine (FLEXERIL) 10 mg tablet Indications: Spasm of thoracic back muscle Take 1 tablet by mouth three times daily as needed. 20 tablet 04/19/2017 02/25/2021 Discontinued diazePAM 10 mg oral tablet (20 sources) Benzodiazepine Start: 03-09-2018 take 0.5-1 tablets by mouth twice daily as needed for anxiety diazePAM (VALIUM) 10 mg tablet 0.5 - 1 tab(s), Oral, BID, PRN as needed for anxiety, 0 Refill(s) 03/09/2018 Active Comment on above: 0.5 - 1 tab(s), Oral, BID, PRN as needed for anxiety, 0 Refill(s) doxylamine succinate 25 mg oral tablet (20 sources) Start: 05-19-2020 doxylamine 25 mg tab 25 mg. 05/19/2020 Active Comment on above: 25 mg. Emergen-C oral powder for reconstitution (6 sources) Start: 08-18-2020 Emergen-C oral powder for reconstitution 0 Refill(s) Start Date: 08/18/20 Status: Ordered esomeprazole 20 mg delayed release oral capsule (13 sources) Proton Pump Inhibitor take 1 capsule by mouth once daily esomeprazole (NEXIUM) 20 mg capsule Take 20 mg by mouth once daily. Active Comment on above: Take 20 mg by mouth once daily. famotidine 20 mg oral tablet (16 sources) Histamine-2 Receptor Antagonist Start: 09-22-2021 famotidine (PEPCID) 20 mg tablet Take by mouth. 09/22/2021 Active Comment on above: Take by mouth. Hypochlorite (3 sources) Start: 10-09-2022 hypochlorous acid (AVENOVA) 0.01 % topical spray 10/09/2022 Active Start: 10-09-2022 hypochlorous a arnel (AVENOVA) 0.01 % topical spray ibuprofen 200 mg oral capsule (6 sources) Nonsteroidal Anti-inflammatory Drug Start: 05-19-2020 ibuprofen 200 mg oral capsule Dose : 200 mg = 1 cap(s), Oral, qDay, 0 Refill(s) Start Date: 05/19/20 Status: Ordered End: 06-08-2021 take 1 tablet by mouth every six hours as needed ibuprofen 200 mg tablet Take 200 mg by mouth every 6 hours as needed. 06/08/2021 Discontinued ketoconazole 20 mg/ml topical cream (7 sources) Azole Antifungal Start: 04-04-2024 ketoconazole 2% topical cream 0 Refill(s), 61.1 Start Date: 04/04/24 Status: Ordered ketoconazole (NI ZORAL) 2 % shampoo 1 nate applied topically once a week Active ketoconazole (NI ZORAL) 2 % cream 1 nate applied topically once a day Active Comment on above: 1 nate applied topica lly once a week 1 nate applied topica lly once a day lidocaine 0.05 mg/mg medicated patch (20 sources) Antiarrhythmic, Amide Local Anesthetic Start: 03-09-2018 lidocaine (LIDODERM) 5 % Apply 1 patch(es), Topical, Daily, # 30 patch(es), 0 Refill(s) 03/09/2018 Active Comment on above: Apply 1 patch(es), Topical, Daily, # 30 patch(es), 0 Refill(s) olopatadine 1 mg/ml ophthalmic solution (13 sources) Histamine-1 Receptor Inhibitor Start: 06-08-2021 take 1 drop(s) into the eye(s) twice daily olopatadine (PATANOL) 0.1 % ophthalmic solution Use 1 Drop in both eyes twice daily. 1 Bottle 11 06/08/2021 Active Start: 06-08-2021 take 1 drop(s) into the eye(s) twice daily olopatadine (PATANOL) 0.1 % ophthalmic solution Use 1 Drop in both eyes twice daily. 1 Bottle 11 06/08/2021 Active Comment on above: Use 1 Drop in both e yes twice daily. phenylephrine hydrochloride 25 mg/ml ophthalmic solution (4 sources) alpha-1 Adrenergic Agonist Start: 07-18-2024 End: 07-18-2024 PHENYLephrine 2.5 % 1 Drop (AK-DILATE, PILO-SYNEPHRINE) Start: 07-18-2024 End: 07-18-2024 1 Drop, BOTH EYES, DIRECT ED, Starting on Mon07/18/24 at 0800, Until Mon07/18/24 at 1959, Administer for dilation PROTECT FROM LIGHT, OPHT CLINIC MED ORDERS Start: 02-29-2024 End: 02-29-2024 PHENYLephrine 2.5 % 1 Drop ( AK-DILATE, PILO-SYNEPHRINE) Start: 06-20-2023 End: 06-20-2023 PHENYLephrine 2.5 % 1 Drop ( AK-DILATE, PILO-SYNEPHRINE) Povidone (3 sources) Start: 10-09-2022 povidone, PF, (IVIZIA, PF,) 0.5 % drop 10/09/2022 Active Start: 10-09-2022 povidone, PF, (IVIZIA, PF,) 0.5 % drop pramipexole dihydrochloride 0.25 mg oral tablet (20 sources) Nonergot Dopamine Agonist Start: 10-05-2021 pramipexole 0.25 mg oral tablet Dose : 0.25 mg = 1 tab(s), Oral, BID, filling in lieu of pcp, # 180 tab(s), 0 Refill(s), Pharmacy: Pharmacy, 157.5, cm, 04/29/24 13:06:00 EDT, Height, kg, 04/29/24 13:06:00 EDT, Dosing Weight Start Date: 05/08/24 Status: Ordered Start: 03-11-2021 take 1.5 tablets by mouth once daily pramipexole 0.25 mg oral tablet 1.5, Oral, qDay, # 135 tab(s), 3 Refill(s), Pharmacy: [facility], 155, cm, 08/18/20 8:48:00 EST, Height, kg, 03/11/21 11:26:00 EDT, Dosing Weight Start Date: 03/11/21 Status: Ordered Comment on above: Take 0.25 mg by mout h once daily. PreserVision AREDS 2 (3 sources) Start: 07-19-2024 PreserVision AREDS 2 Chewed, BID, 0 Refill(s) Start Date: 04/26/24 Status: Ordered traMADol hydrochloride 50 mg oral tablet (20 sources) Opioid Agonist Start: 03-09-2018 traMADol (ULTRAM) 50 mg tablet 50 mg. 03/09/2018 Active Comment on above: 50 mg. triamcinolone acetonide 1 mg/ml topical cream (15 sources) Corticosteroid Start: 04-04-2024 triamcinolone 0.1% topical cream 0 Refill(s), 61.1 Start Date: 04/04/24 Status: Ordered Start: 04-06-2020 triamcinolone (KENALOG) 0.025 % cream Apply to affected area three times daily. 80 g 04/06/2020 Active Comment on above: Apply to affected ar ea three times daily. tropicamide 10 mg/ml ophthalmic solution (4 sources) Anticholinergic Start: 07-18-2024 End: 07-18-2024 tropicamide 1 % 1 Drop (MYDRIACYL) Start: 07-18-2024 End: 07-18-2024 1 Drop, BOTH EYES, DIRECT ED, Starting on Evie 07/18/24 at 0800, Until Evie 07/18/24 at 1959, Administer for dilation, OPHT CLINIC MED ORDERS Start: 02-29-2024 End: 02-29-2024 tropicamide 1 % 1 Drop (MYDR IACYL) Start: 06-20-2023 End: 06-20-2023 tropicamide 1 % 1 Drop (MYDR IACYL) vit C/vit E ac/lut/copper/zi nc (PRESERVISION LUTEIN ORAL) (14 sources) vit C/vit E ac/l ut/copper/zinc (PRESERVISION LUTEIN ORAL) Take by mouth. Active vit C/vit E ac/l ut/copper/zinc (PRESERVISION LUTEIN ORAL) Take by mouth. 0 Active Comment on above: Take by mouth. Vitamin D3 (9 sources) Start: 08-18-2020 Vitamin D3 Dos e : 2,000 unit(s) = 1 cap(s), Oral, Daily, # 30 cap(s), 0 Refill(s) Start Date: 08/18/20 Status: Ordered Completed/Discontinued Medications Medication Drug Class(es) Dates Sig (Normalized) Sig (Original) aspirin 81 mg oral tablet (1 source) Platelet Aggregation Inhibitor, Nonsteroidal Anti-inflammatory Drug End: 06-08-2021 Aspirin 81 mg tab Take 81 mg by mouth. 06/08/2021 Discontinued benoxinate hydrochloride 4 mg/ml / fluorescein sodium 3 mg/ml ophthalmic solution (3 sources) Diagnostic Dye Start: 02-29-2024 End: 02-29-2024 fluorescein-benoxi annelise 0.3-0.4 % 1 Drop (FLURESS) Start: 06-20-2023 End: 06-20-2023 fluorescein-benoxinate 0.25- 0.4 % 1 Drop (FLURESS) Start: 03-17-2022 End: 03-17-2022 fluorescein-benoxinate 0.25- 0.4 % 1 Drop (FLURESS) methylPREDNISolone 4 mg oral tablet (2 sources) Corticosteroid Start: 03-08-2024 End: 03-14-2024 Medrol Dosepak 4 mg oral tablet 1 packet(s), Oral, qDay, as directed on package labeling, # 21 tab(s), 0 Refill(s) Start Date: 03/08/24 Stop Date: 03/14/24 Status: Ordered Sguzklejyjvql-Soorfzps-Tt tein (VITRUM SENIOR) tab (1 source) End: 06-08-2021 Multivitamins-Mine rals-Lutein (VITRUM SENIOR) tab Take 1 tablet by mouth once daily. 3 times weekly 06/08/2021 Discontinued prednisoLONE acetate 10 mg/ml ophthalmic suspension (5 sources) Corticosteroid Start: 01-24-2022 End: 03-17-2022 take 1 drop(s) into the eye(s) four times daily, then take 1 drop(s) into the eye(s) twice daily prednisoLONE acetate (PRED FORTE, ECONOPRED PLUS) 1 % ophthalmic suspension one drop left eye four times daily and one drop right eye two times daily 10 mL 0 01/24/2022 03/17/2022 Discontinued (Course of therapy completed) Start: 01-10-2022 prednisoLONE a cetate (PRED FORTE, ECONOPRED PLUS) 1 % ophthalmic suspension Use 1 Drop in the right eye four times daily. 10 mL 0 01/10/2022 Active Comment on above: Use 1 Drop in the ri ght eye four times daily. one drop left eye fo ur times daily and one drop right eye two times daily predniSONE 10 mg oral tablet (1 source) Start: 11-03-2022 End: 11-08-2022 predniSONE 10 mg oral tablet Dose : 10 mg = 1 tab(s), Oral, qDay, # 5 tab(s), 0 Refill(s), Pharmacy: [facility]/pharmacy #[id number], 158, cm, 10/21/22 10:24:00 EST, Height Start Date: 11/03/22 Stop Date: 11/08/22 Status: Ordered proparacaine hydrochloride 5 mg/ml ophthalmic solution (2 sources) Local Anesthetic Start: 02-29-2024 End: 02-29-2024 proparacaine 0.5 % 1 Drop (ALCAINE) Start: 06-20-2023 End: 06-20-2023 proparacaine 0.5 % 1 Drop (A LCAINE) valACYclovir 1000 mg oral tablet (20 sources) Herpesvirus Nucleoside Analog DNA Polymerase Inhibitor, Herpes Simplex Virus Nucleoside Analog DNA Polymerase Inhibitor, Herpes Zoster Virus Nucleoside Analog DNA Polymerase Inhibitor Start: 05-08-2024 valACYclovir 1 g or al tablet Dose : 1 gram(s) = 1 tab(s), Oral, qDay, filling in lieu of pcp, # 90 tab(s), 0 Refill(s), Pharmacy: Pharmacy, 157.5, cm, 04/29/24 13:06:00 EDT, Height, 61, kg, 04/29/24 13:06:00 EDT, Dosing Weight Start Date: 05/08/24 Status: Ordered Start: 11-14-2023 valACYclovir 1 g oral tablet Dose : 1 gram(s) = 1 tab(s), Oral, qDay, # 90 tab(s), 1 Refill(s), Pharmacy: Pharmacy, 157, cm, 09/19/23 9:32:00 EST, Height, 63.2, kg, 09/19/23 9:32:00 EST, Dosing Weight Start Date: 11/14/23 Status: Ordered Start: 09-08-2023 valACYclovir 1 g oral tablet Dose : 1 gram(s) = 1 tab(s), Oral, qDay, # 90 tab(s), 1 Refill(s), Pharmacy: [facility], 158, cm, 10/21/22 10:24:00 EST, Height, 62.6, kg, 11/03/22 10:22:00 EST, Dosing Weight Start Date: 09/08/23 Status: Ordered Start: 10-13-2022 valACYclovir 1 g oral tablet Dose : 1 gram(s) = 1 tab(s), Oral, qDay, # 90 tab(s), 3 Refill(s), Pharmacy: [facility], 155, cm, 09/16/22 10:36:00 EST, Height, 63.2, kg, 09/16/22 10:36:00 EST, Dosing Weight Start Date: 10/13/22 Status: Ordered Start: 10-05-2021 valACYclovir 1 g oral tablet Dose : 1 gram(s) = 1 tab(s), Oral, qDay, # 90 tab(s), 3 Refill(s), Dosing Weight Start Date: 10/05/21 Status: Ordered Start: 07-06-2021 valACYclovir 1 g oral tablet Dose : 1 gram(s) = 1 tab(s), Oral, qDay, # 90 tab(s), 1 Refill(s), Pharmacy: [facility], 155, cm, 08/18/20 8:48:00 EST, Height, 60.4, kg, 03/11/21 11:26:00 EDT, Dosing Weight Start Date: 07/06/21 Status: Ordered VALACYCLOVIR HCL (VALTREX ORAL) Take by mouth. Active VALACYCLOVIR HCL (VALTREX ORAL) Take by mouth. 0 Active Comment on above: Take by mouth. 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] Onset: 01-02-2022 08-18-2020 Chronic Heart valve disorders (3 sources) Irregular heart beat 04-26-2024 Episodic Inflammation; infection of eye (except that caused by tuberculosis or sexually transmitteddisease) (1 source) Blepharitis; Translations: [Squamous blepharitis right eye, upper and lower eyelids] Episodic Other and unspecified benign neoplasm (3 sources) Nevus of choroid of right eye; Translations: [Benign neoplasm of right choroid] Episodic Other and unspecified benign neoplasm (9 sources) Polyp of colon 10-21-2022 Episodic Comment on above: needs repeat colonos copy 2024 Other and unspecified benign neoplasm (1 source) 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; Translations: [Benign neoplasm of right choroid] 06-20-2023 Episodic Other and unspecified benign neoplasm (1 source) Benign neoplasm of right choroid; 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, right] Onset: 07-18-2024 Episodic Other connective tissue disease (1 source) Foot pain 03-18-2024 Episodic Other gastrointestinal disorders (3 sources) Heartburn 04-26-2024 Episodic Other gastrointestinal disorders (3 sources) Pelvic mass 06-05-2024 Episodic Other hereditary and degenerative nervous system conditions (20 sources) Restless legs; Translations: [Restless legs syndrome] Onset: 01-02-2022 01-02-2020 Chronic Other inflammatory condition of skin (9 sources) Psoriatic arthritis 10-21-2022 Chronic Other non-traumatic joint disorders (1 source) Hip pain; Translations: [Pain in left hip] 02-25-2021 Episodic Retinal detachments; defects; vascular occlusion; and retinopathy (20 sources) Degenerative disorder of macula ; 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] Onset: 02-08-2023 Resolved: 02-08-2023 08-18-2020 Chronic Retinal detachments; defects; vascular occlusion; and retinopathy (1 source) Retinal round hole; Translations: [Round hole, bilateral] Episodic Spondylosis; intervertebral disc disorders; other back problems (14 sources) Degeneration of lumbar intervertebral disc; Translations: [Other intervertebral disc degeneration, lumbar region] Chronic Spondylosis; intervertebral disc disorders; other back problems (3 sources) Backache; Translations: [Spasm of back muscles] Onset: 07-02-2022 03-11-2021 Episodic Sprains and strains (12 sources) Lower back injury; Translations: [Strain of muscle, fascia and tendon of lower back, initial encounter] Onset: 03-08-2024 Episodic Unclassified (14 sources) 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 Unclassified (20 sources) Patient encounter status 11-04-2019 Unclassified (5 sources) Injury of left foot 03-18-2024 Viral infection (14 sources) 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 Episodic Past or Other Problems Problem Classification Problem Date Documented Da te Episodic/Chronic E Codes: Natural/environment (14 sources) Bitten or stung by nonvenomous insect and other nonvenomous arthropods, initial encounter; Translations: [Insect bite, nonvenomous, of other, multiple, and unspecified sites, without mention of infection] Onset: 04-06-2020 04-06-2020 Episodic Results Test Name Value Interpretation Reference Range Facility OCT MACULA CIRRUS OU (BOTH E YES)on 07-18-2024 [facility] Radiology Study observation (narrative) [facility] MRI PELVIS W/ +W/O CONTRASTo n 07-12-2024 MRI PELVIS W/ +W/O CONTRAST ORIGINAL EXAMINATION: MRI OF THE PELVIS WITHOUT AND WITH CONTRAST, 07/12/2024 2:05 pm TECHNIQUE: Multiplanar multisequence MRI of the pelvis was performed without and with the administration of intravenous contrast. COMPARISON: Ultrasound pelvis 04/24/[address] pelvis 06/12/2024 HISTORY: Reason for exam: Rule out urethral diverticulum, looking from mass around bladder FINDINGS: UTERUS: Surgically absent. RIGHT OVARY: Not visualized, likely surgically absent. LEFT OVARY: Not visualized, likely surgically absent. VAGINA: The vagina is collapsed the unremarkable appearance for COLLECTING SYSTEM: The bladder is under distended although grossly unremarkable. The urethra is also unremarkable without evidence of urethral diverticulum or irregular masslike enhancement. LYMPH NODES AND MESENTERY: No lymphadenopathy. BONES: Normal Marrow Signal SUPERFICIAL SOFT TISSUES: Normal pelvic wall. Colonic diverticulosis. IMPRESSION: Unremarkable urethra without evidence of urethral diverticulum. No suspicious lesion. I have personally reviewed the images of this examination and agree with the resident's findings and interpretations. Interpreted by: Marcos Ren Preliminary Report By: Thomas Connor Electronically signed By Marcos Ren Dictated Date: 07/12/2024 2:38:02 PM Prelim Date: 07/12/2024 4:58:13 PM Sign Date: 07/12/2024 4:58:13 PM Ordering Provider: [facility] MAIN CT PELVIS W/ CONTRASTon CT PELVIS W/ CONTRAST ORIGINAL EXAMINATION: CT OF THE PELVIS WITH CONTRAST 06/12/2024 9:25 pm TECHNIQUE: CT of the pelvis was performed with the administration of intravenous contrast. Multiplanar reformatted images are provided for review. Automated exposure control, iterative reconstruction, and/or weight based adjustment of the mA/kV was utilized to reduce the radiation dose to as low as reasonably achievable. COMPARISON: Pelvic ultrasound 04/24/2024. HISTORY ORDERING SYSTEM PROVIDED HISTORY: Total hysterectomy. Reason for Exam: Rule out urethral mass. Abnormal mass seen on MRI April of 2024, inferior to bladder. FINDINGS: Bones: No evidence of acute fracture or dislocation. No aggressive appearing osseous abnormality or periostitis. Soft Tissue: Ill-defined 2.4 cm peripherally enhancing lesion is noted posterior to the urethra (series 2, image 358). This lesion likely abuts the posterior wall of urethra, urethral diverticulum is a likely possibility. There are few gas locules within the lesion. There is surrounding soft tissue inflammation/infiltrat e in the region of urethra/vaginal canal. Mild sigmoid colonic diverticulosis without diverticulitis. Bladder is under distended. Joint: No significant degenerative changes. No osseous erosions. IMPRESSION: Indeterminate 2.4 cm complex lesion posterior to the urethra containing gas locules and surrounding inflammation/enhanceme nt. This may represent a complex urethral diverticulum, and infection and inflammation within it. Neoplasm is difficult to exclude. The precise nature of the abnormality is uncertain. Mild sigmoid colonic diverticulosis without diverticulitis. I have personally reviewed the images of this examination and agree with the resident's finding and interpretation. Interpreted by: Modesto Gonsalez MD Preliminary Report By: Roger Rees Electronically signed By Modesto Gonsalez MD Dictated Date: 06/13/2024 11:16:52 AM Prelim Date: 06/13/2024 4:35:14 PM Sign Date: 06/13/2024 4:35:14 PM Ordering Provider: GLENDY SMITH [facility] US PELVIS NON-OB W/TRANSVAGI NALon 04-25-2024 US PELVIS NON-OB W/TRANSVAGINAL ORIGINAL EXAMINATION: TRANSVAGINAL PELVIC ULTRASOUND 04/24/2024 TECHNIQUE: Transvaginal pelvic ultrasound was performed. COMPARISON: Images from MRI of the thoracic spine performed at [facility] [place] 03/21/2024 HISTORY: ORDERING SYSTEM PROVIDED HISTORY: Reason for Exam: pelvic mass on thoracic MRI Reported abnormal images on prior MRI. Images recorded and archived. FINDINGS: Measurements: Uterus: Surgically absent Endometrial stripe: Surgically absent Right Ovary:Not measured. Left Ovary: Not measured. Ultrasound Findings: Uterus: Uterus is removed.. Right Ovary: Right ovary not diagnostically imaged. Left Ovary: Left ovary not diagnostically imaged.. Free Fluid: No evidence of free fluid. A solid-appearing focus measuring 3.9 x 3.9 x 4.3 cm is seen inferior to the urinary bladder which correlates to the area urethral prominence noted on localizer images of prior sagittal MRI. Appearance may relate to inflammatory change surrounding the female urethra. IMPRESSION: 1. 3.9 x 3.9 x 4.3 cm solid-appearing focus inferior to the urinary bladder correlates to the area of urethral prominence noted on prior sagittal MRI. Appearance may relate to inflammatory change surrounding the female urethra. If clinically required, further evaluation with computed tomography of the pelvis with IV and oral contrast may be useful. 2. Surgical absence of the uterus. 3. Nonvisualization of the ovaries. Interpreted by: Chinmay Major DO Preliminary Report By: Chinmay Major DO Electronically signed By Chinmay Major DO Dictated Date: 04/25/2024 1:38:53 PM Prelim Date: 04/25/2024 1:54:29 PM Sign Date: 04/25/2024 1:54:29 PM Ordering Provider: LAY ESCOBAR [facility] ([place]) XR FOOT MINIMUM 3 VIEWS LEFT on 03-18-2024 XR FOOT MINIMUM 3 VIEWS LEFT ORIGINAL EXAMINATION: THREE XRAY VIEWS OF THE LEFT FOOT03/18/2024 10:13 am FOOT 3 VIEWS LEFT COMPARISON: None HISTORY: ORDERING SYSTEM PROVIDED HISTORY: Reason for Exam: pain, injury, bruising FINDINGS: No acute fracture or dislocation is identified.Sclerotic density in the distal 2nd metatarsal is likely a bone island or other nonaggressive lesion. Joint space loss and mild spurring seen at the 1st metatarsophalangeal joint. Small enthesophytes seen at the Achilles insertion. There is no radiopaque foreign body. IMPRESSION: Mild degenerative changes. No acute osseous abnormality Interpreted by: Chinmay Burk MD Preliminary Report By: Chinmay Burk MD Electronically signed By Chinmay Burk MD Dictated Date: 03/18/2024 11:11:13 AM Prelim Date: 03/18/2024 11:12:17 AM Sign Date: 03/18/2024 11:12:17 AM Ordering Provider: BRYAN Washburn [facility] ([place]) MA MAMMOGRAM SCREENING BILAT ERAL W/TOMOon 01-17-2024 MA MAMMOGRAM SCREENING BILATERAL W/MILTON ORIGINAL FROM: [facility] [address] [place] [id number] PROCEDURE FOR: [employer]LL[facility] [address] [place] [address] Home: PID#: [id number] Exam#: [id number] : 1945 Age: 78 TO: LAY ESCOBAR [address] [address] Fax: NO FAX EXAMINATION: SCREENING DIGITAL BILATERAL MAMMOGRAM WITH TOMOSYNTHESIS, 01/17/2024 8:57 am TECHNIQUE: Screening mammography of the bilateral breasts was performed with tomosynthesis. 2D standard and 3D tomosynthesis combination imaging performed through both breasts in the MLO and CC projection. Computer aided detection was utilized in the interpretation of this exam. COMPARISON: January 09, 2023, December 24, 2021, November 14, 2019 HISTORY: Breast cancer screening. FINDINGS: BREAST DENSITY: Scattered fibroglandular tissue There are bilateral benign-type calcifications. There is no significant mass, architectural distortion or microcalcification. Fibroglandular pattern is stable. IMPRESSION: No mammographic evidence of malignancy. Continued screening with annual mammograms is recommended. Cherie Cruz risk calculations, generated with the history provided, report this patient's lifetime risk for developing breast cancer at 2.7%. Based on this assessment tool, if the patient's calculated lifetime risk is below 20%, then the patient is considered at average risk for developing breast cancer. If the patient's calculated lifetime risk is at or above 20%, then the patient is considered high risk for developing breast cancer and may be a candidate for supplemental breast MRI screening in addition to annual mammographic screening per the [employer]. BIRADS: MAMMOGRAM BI-RADS: 2: Benign finding RECALL: 1 year screening RECALL TYPE: mammo LETTER SENT: Normal BI-RADS 1 and 2 Interpreted by: Park Matos Preliminary Report By: Park Matos Electronically signed By Park Matos Dictated Date: 01/17/2024 1:22:05 PM Prelim Date: 01/17/2024 1:25:30 PM Sign Date: 01/17/2024 1:25:30 PM Ordering Provider: LAY ESCOBAR Senior Analyst Market Intelligence: JUNI GREENE RT(R)(M)(CT) STORES ASSISTANT letter sent: Normal BI-RADS 1 and 2 Mammogram BI-RADS: 2 Benign Normal [facility] ([place]) .Auto Diffon 10-19-2023 Basophil, Absolute 0.0 10 3/mcL Normal 0.0-0.2 [facility] ([place]) Comment on above: Performed By: #### F T4, ADIFF, FT3, CMP, LIPID, ANEU, CBC, TSH, GFR #### [address] [address] Basophils/100 WBC (Bld) 0.9 % Normal 0.0-2.5 [facility] ([place]) Comment on above: Performed By: #### F T4, ADIFF, FT3, CMP, LIPID, ANEU, CBC, TSH, GFR #### [address] [address] Eosinophil, Absolute 0.1 10 3/mcL Normal 0.0-0.4 [facility] ([place]) Comment on above: Performed By: #### F T4, ADIFF, FT3, CMP, LIPID, ANEU, CBC, TSH, GFR #### [address] [address] Eosinophils/100 WBC (Bld) 1.8 % Normal 0.0-7.0 [facility] ([place]) Comment on above: Performed By: #### F T4, ADIFF, FT3, CMP, LIPID, ANEU, CBC, TSH, GFR #### [address] [address] Lymphocyte, Absolute 1.8 10 3/mcL Normal 0.8-3.9 [facility] ([place]) Comment on above: Performed By: #### F T4, ADIFF, FT3, CMP, LIPID, ANEU, CBC, TSH, GFR #### [address] [address] Lymphocytes/100 WBC (Bld) 34.6 % Normal 10.0-50.0 [facility] ([place]) Comment on above: Performed By: #### F T4, ADIFF, FT3, CMP, LIPID, ANEU, CBC, TSH, GFR #### [address] [address] Monocyte, Absolute 0.6 10 3/mcL Normal 0.2-1.0 [facility] ([place]) Comment on above: Performed By: #### F T4, ADIFF, FT3, CMP, LIPID, ANEU, CBC, TSH, GFR #### [address] [address] Monocytes/100 WBC (Bld) 10.4 % Normal 1.7-13.0 [facility] ([place]) Comment on above: Performed By: #### F T4, ADIFF, FT3, CMP, LIPID, ANEU, CBC, TSH, GFR #### [address] [address] Neutrophils/100 WBC (Bld) 52.3 % Normal 37.0-80.0 [facility] ([place]) Comment on above: Performed By: #### F T4, ADIFF, FT3, CMP, LIPID, ANEU, CBC, TSH, GFR #### [address] [address] .GFRon 10-19-2023 GFR 87 ml/min/1.73sqm Normal [facility] ([place]) Comment on above: Result Comment: GFR Population mean for , Non- Americans Ages 20-29 = 116 mL/min/1.73 sq.m. Ages 30-39 = 107 mL/min/1.73 sq.m. Ages 40-49 = 99 mL/min/1.73 sq.m. Ages 50-59 = 93 mL/min/1.73 sq.m. Ages 60-69 = 85 mL/min/1.73 sq.m. Ages 70+ = 75 mL/min/1.73 sq.m. Chronic Kidney Disease: Less than 60 mL/min/1.73 square meters End Stage Renal Disease: Less than 15 mL/min/1.73 square meters Performed By: #### F T4, ADIFF, FT3, CMP, LIPID, ANEU, CBC, TSH, GFR #### [address] [address] GFR Non- 71 ml/min/1.73sqm Normal [facility] ([place]) Comment on above: Result Comment: GFR Population mean for , Non- Americans Ages 20-29 = 116 mL/min/1.73 sq.m. Ages 30-39 = 107 mL/min/1.73 sq.m. Ages 40-49 = 99 mL/min/1.73 sq.m. Ages 50-59 = 93 mL/min/1.73 sq.m. Ages 60-69 = 85 mL/min/1.73 sq.m. Ages 70+ = 75 mL/min/1.73 sq.m. Chronic Kidney Disease: Less than 60 mL/min/1.73 square meters End Stage Renal Disease: Less than 15 mL/min/1.73 square meters Performed By: #### F T4, ADIFF, FT3, CMP, LIPID, ANEU, CBC, TSH, GFR #### [address] [address] .NEUABSon 10-19-2023 Neutrophil, Absolute 2.8 10 3/mcL Low 2.9-6.2 [facility] ([place]) Comment on above: Performed By: #### F T4, ADIFF, FT3, CMP, LIPID, ANEU, CBC, TSH, GFR #### [address] [address] CBCon 10-19-2023 Erythrocyte distribution width (RBC) [Ratio] 13.7 % Normal 11.5-14.5 [facility] ([place]) Comment on above: Performed By: #### F T4, ADIFF, FT3, CMP, LIPID, ANEU, CBC, TSH, GFR #### [address] [address] Hematocrit (Bld) [Volume fraction] 42.9 % Normal 37.0-47.0 [facility] ([place]) Comment on above: Performed By: #### F T4, ADIFF, FT3, CMP, LIPID, ANEU, CBC, TSH, GFR #### [address] [address] Hgb 14.4 G/dL Normal 12.0-16.0 [facility] ([place]) Comment on above: Performed By: #### F T4, ADIFF, FT3, CMP, LIPID, ANEU, CBC, TSH, GFR #### [address] [address] MCH (RBC) [Entitic mass] 29.1 pg Normal 27.0-31.2 [facility] ([place]) Comment on above: Performed By: #### F T4, ADIFF, FT3, CMP, LIPID, ANEU, CBC, TSH, GFR #### [place] [id number] MCHC 33.6 G/dL Normal 33.0-37.0 [facility] ([place]) Comment on above: Performed By: #### F T4, ADIFF, FT3, CMP, LIPID, ANEU, CBC, TSH, GFR #### [place] [id number] MCV (RBC) [Entitic vol] 86.7 fL Normal 80.0-94.0 [facility] ([place]) Comment on above: Performed By: #### F T4, ADIFF, FT3, CMP, LIPID, ANEU, CBC, TSH, GFR #### [address] [address] Platelet 220 10 3/mcL Normal 130-400 [facility] ([place]) Comment on above: Performed By: #### F T4, ADIFF, FT3, CMP, LIPID, ANEU, CBC, TSH, GFR #### [address] [address] Platelet mean volume (Bld) [Entitic vol] 8.3 fL Normal 7.4-10.4 [facility] ([place]) Comment on above: Performed By: #### F T4, ADIFF, FT3, CMP, LIPID, ANEU, CBC, TSH, GFR #### [place] [address] RBC 4.94 10 6/mcL Normal 4.20-5.40 [facility] ([place]) Comment on above: Performed By: #### F T4, ADIFF, FT3, CMP, LIPID, ANEU, CBC, TSH, GFR #### [place] [address] WBC 5.3 10 3/mcL Normal 4.6-10.8 [facility] ([place]) Comment on above: Performed By: #### F T4, ADIFF, FT3, CMP, LIPID, ANEU, CBC, TSH, GFR #### [address] [address] CMPon 10-19-2023 Albumin Level 3.8 G/dL Normal 3.4-4.8 [facility]) Comment on above: Performed By: #### F T4, ADIFF, FT3, CMP, LIPID, ANEU, CBC, TSH, GFR #### [address] [address] Albumin/Globulin [Mass ratio] 1.2 {ratio} Normal 1.1-2.5 [facility]) Comment on above: Performed By: #### F T4, ADIFF, FT3, CMP, LIPID, ANEU, CBC, TSH, GFR #### [address] [address] ALP [Catalytic activity/Vol] 111 U/L Normal 40-135 [facility]) Comment on above: Performed By: #### F T4, ADIFF, FT3, CMP, LIPID, ANEU, CBC, TSH, GFR #### [address] [address] ALT [Catalytic activity/Vol] 22 U/L Normal 14-59 [facility] ([place]) Comment on above: Performed By: #### F T4, ADIFF, FT3, CMP, LIPID, ANEU, CBC, TSH, GFR #### [address] [address] AST [Catalytic activity/Vol] 17 U/L Normal 10-40 [facility] ([place]) Comment on above: Performed By: #### F T4, ADIFF, FT3, CMP, LIPID, ANEU, CBC, TSH, GFR #### [address] [address] Bili Total 0.9 mg/dL Normal 0.2-1.0 [facility] ([place]) Comment on above: Result Comment: Use of this assay is not recommended for patients undergoing treatment with eltrombopag due to the potential for falsely elevated results. Performed By: #### F T4, ADIFF, FT3, CMP, LIPID, ANEU, CBC, TSH, GFR #### [address] [address] BUN/Creatinine Ratio 21 ratio Normal 7-27 [facility] ([place]) Comment on above: Performed By: #### F T4, ADIFF, FT3, CMP, LIPID, ANEU, CBC, TSH, GFR #### [address] [address] Calcium [Mass/Vol] 9.3 mg/dL Normal 8.4-10.2 [facility] ([place]) Comment on above: Performed By: #### F T4, ADIFF, FT3, CMP, LIPID, ANEU, CBC, TSH, GFR #### [address] [address] Chloride [Moles/Vol] 103 mmol/L Normal 98-107 [facility] ([place]) Comment on above: Performed By: #### F T4, ADIFF, FT3, CMP, LIPID, ANEU, CBC, TSH, GFR #### [address] [address] CO2 [Moles/Vol] 31 mmol/L Normal 23-31 [facility] ([place]) Comment on above: Performed By: #### F T4, ADIFF, FT3, CMP, LIPID, ANEU, CBC, TSH, GFR #### [address] [address] Creatinine [Mass/Vol] 0.78 mg/dL Normal 0.55-1.02 [facility] ([place]) Comment on above: Performed By: #### F T4, ADIFF, FT3, CMP, LIPID, ANEU, CBC, TSH, GFR #### [address] [address] Electrolyte Balance 6.0 mEq/L Normal 4.0-15.0 [facility] ([place]) Comment on above: Performed By: #### F T4, ADIFF, FT3, CMP, LIPID, ANEU, CBC, TSH, GFR #### [address] [address] Globulin 3.3 G/dL Normal [facility] ([place]) Comment on above: Performed By: #### F T4, ADIFF, FT3, CMP, LIPID, ANEU, CBC, TSH, GFR #### [address] [address] Glucose [Mass/Vol] 93 mg/dL Normal 83-110 [facility] ([place]) Comment on above: Performed By: #### F T4, ADIFF, FT3, CMP, LIPID, ANEU, CBC, TSH, GFR #### [address] [address] Potassium [Moles/Vol] 4.9 mmol/L Normal 3.5-5.1 [facility] ([place]) Comment on above: Performed By: #### F T4, ADIFF, FT3, CMP, LIPID, ANEU, CBC, TSH, GFR #### [address] [address] Sodium [Moles/Vol] 140 mmol/L Normal 136-145 [facility] ([place] Comment on above: Performed By: #### F T4, ADIFF, FT3, CMP, LIPID, ANEU, CBC, TSH, GFR #### [address] [address] Total Protein 7.1 G/dL Normal 6.4-8.2 [facility] ([place]) Comment on above: Performed By: #### F T4, ADIFF, FT3, CMP, LIPID, ANEU, CBC, TSH, GFR #### [address] [address] Urea nitrogen [Mass/Vol] 16 mg/dL Normal 7-18 [facility] ([place]) Comment on above: Performed By: #### F T4, ADIFF, FT3, CMP, LIPID, ANEU, CBC, TSH, GFR #### [address] [address] FT3on 10-19-2023 Free T3 [Mass/Vol] 2.80 pg/mL Normal 2.30-4.00 [facility]) Comment on above: Performed By: #### F T4, ADIFF, FT3, CMP, LIPID, ANEU, CBC, TSH, GFR #### [address] [address] FT4on 10-19-2023 Free T4 [Mass/Vol] 1.02 ng/dL Normal 0.76-1.46 [facility]) Comment on above: Performed By: #### F T4, ADIFF, FT3, CMP, LIPID, ANEU, CBC, TSH, GFR #### [address] [address] LABORATORYOrdered By: SYSTEM SYSTEM on 10-19-2023 Albumin BCP dye [Mass/Vol] 3.8 G/dL Normal 3.4 - 4.8 G/dL AO ADM SS Albumin/Globulin [Mass ratio] 1.2 {ratio} Normal 1.1 - 2.5 ratio AO ADM SS ALP [Catalytic activity/Vol] 111 U/L Normal 40 - 135 U/L AO ADM SS ALT With P-5'-P [Catalytic activity/Vol] 22 U/L Normal 14 - 59 U/L AO ADM SS AST With P-5'-P [Catalytic activity/Vol] 17 U/L Normal 10 - 40 U/L AO ADM SS Basophil, Absolute 0.0 103/mcL Normal 0.0 - 0.2 10^3/mcL AO Workflow SS Basophils/100 WBC (Bld) 0.9 % Normal 0.0 - 2.5 % AO Workflow SS Bilirubin [Mass/Vol] 0.9 mg/dL Normal 0.2 - 1 .0 mg/dL AO ADM SS Comment on above: Interpretive Data: U se of this assay is not recommended for patients undergoing treatment with eltrombopag due to the potential for falsely elevated results. Calcium [Mass/Vol] 9.3 mg/dL Normal 8.4 - 10. 2 mg/dL AO ADM SS Chloride [Moles/Vol] 103 mmol/L Normal 98 - 10 7 mmol/L AO ADM SS CO2 [Moles/Vol] 31 mmol/L Normal 23 - 31 mmol/L AO ADM SS Creatinine [Mass/Vol] 0.78 mg/dL Normal 0.55 - 1.02 mg/dL AO ADM SS Electrolyte Balance 6.0 mEq/L Normal 4.0 - 15 .0 mEq/L AO ADM SS Eosinophil, Absolute 0.1 103/mcL Normal 0.0 - 0 .4 10^3/mcL AO Workflow SS Eosinophils/100 WBC (Bld) 1.8 % Normal 0.0 - 7.0 % AO Workflow SS Erythrocyte distribution width (RBC) [Ratio] 13.7 % Normal 11.5 - 14.5 % AO Workflow SS Free T3 [Mass/Vol] 2.80 pg/mL Normal 2.30 - 4. 00 pg/mL AO ADM SS Free T4 [Mass/Vol] 1.02 ng/dL Normal 0.76 - 1. 46 ng/dL AO ADM SS GFR/1.73 sq M.predicted among blacks MDRD (S/P/Bld) [Vol rate/Area] 87 ml/min/1.73sqm Invalid Interpretation Code AO Chemistry S Comment on above: Interpretive Data: GFR Population mean for , Non- Americans Ages 20-29 = 116 mL/min/1.73 sq.m. Ages 30-39 = 107 mL/min/1.73 sq.m. Ages 40-49 = 99 mL/min/1.73 sq.m. Ages 50-59 = 93 mL/min/1.73 sq.m. Ages 60-69 = 85 mL/min/1.73 sq.m. Ages 70+ = 75 mL/min/1.73 sq.m. Chronic Kidney Disease: Less than 60 mL/min/1.73 square meters End Stage Renal Disease: Less than 15 mL/min/1.73 square meters GFR/1.73 sq M.predicted among non-blacks MDRD (S/P/Bld) [Vol rate/Area] 71 ml/min/1.73sqm Invalid Interpretation Code AO Chemistry S Comment on above: Interpretive Data: GFR Population mean for , Non- Americans Ages 20-29 = 116 mL/min/1.73 sq.m. Ages 30-39 = 107 mL/min/1.73 sq.m. Ages 40-49 = 99 mL/min/1.73 sq.m. Ages 50-59 = 93 mL/min/1.73 sq.m. Ages 60-69 = 85 mL/min/1.73 sq.m. Ages 70+ = 75 mL/min/1.73 sq.m. Chronic Kidney Disease: Less than 60 mL/min/1.73 square meters End Stage Renal Disease: Less than 15 mL/min/1.73 square meters Globulin 3.3 G/dL Invalid Interpretation Code AO ADM SS Glucose [Mass/Vol] 93 mg/dL Normal 83 - 110 mg/dL AO ADM SS Hematocrit (Bld) [Volume fraction] 42.9 % Normal 37.0 - 47.0 % AO Workflow SS Hemoglobin (Bld) [Mass/Vol] 14.4 G/dL Normal 12.0 - 16.0 G/dL AO Workflow SS Lymphocyte, Absolute 1.8 103/mcL Normal 0.8 - 3 .9 10^3/mcL AO Workflow SS Lymphocytes/100 WBC (Bld) 34.6 % Normal 10.0 - 50.0 % AO Workflow SS MCH (RBC) [Entitic mass] 29.1 pg Normal 27.0 - 31.2 pg AO Workflow SS MCHC 33.6 G/dL Normal 33.0 - 37.0 G/dL AO Workflow SS MCV (RBC) [Entitic vol] 86.7 fL Normal 80.0 - 94.0 fL AO Workflow SS Monocyte, Absolute 0.6 103/mcL Normal 0.2 - 1.0 10^3/mcL AO Workflow SS Monocytes/100 WBC (Bld) 10.4 % Normal 1.7 - 13.0 % AO Workflow SS Neutrophil, Absolute 2.8 103/mcL Low 2.9 - 6 .2 10^3/mcL AO Workflow SS Neutrophils/100 WBC (Bld) 52.3 % Normal 37.0 - 80.0 % AO Workflow SS Platelet mean volume (Bld) [Entitic vol] 8.3 fL Normal 7.4 - 10.4 fL AO Workflow SS Platelets (Bld) [#/Vol] 220 103/mcL Normal 130 - 400 10^3/mcL AO Workflow SS Potassium [Moles/Vol] 4.9 mmol/L Normal 3.5 - 5.1 mmol/L AO ADM SS Protein [Mass/Vol] 7.1 G/dL Normal 6.4 - 8.2 G/dL AO ADM SS RBC (Bld) [#/Vol] 4.94 106/mcL Normal 4.20 - 5.4 0 10^6/mcL AO Workflow SS Sodium [Moles/Vol] 140 mmol/L Normal 136 - 145 mmol/L AO ADM SS TSH Qn 2.24 m[IU]/L Normal 0.36 - 3.74 mcIU/mL AO ADM SS Urea nitrogen [Mass/Vol] 16 mg/dL Normal 7 - 18 mg/dL AO ADM SS Urea nitrogen/Creatinine [Mass ratio] 21 ratio Normal 7 - 27 ratio AO ADM SS WBC (Bld) [#/Vol] 5.3 103/mcL Normal 4.6 - 10.8 10^3/mcL AO Workflow SS LABORATORYOrdered By: Vicki Sellers on 10-19-2023 Cholesterol [Mass/Vol] 260 mg/dL High 0 - 200 mg/dL AO ADM SS Comment on above: Interpretive Data: C holesterol Reference Interval: Less than 200 Desirable 200-239 Borderline high risk 240 and above High risk Cholesterol in HDL [Mass/Vol] 64 mg/dL High 40 - 60 mg/dL AO ADM SS Cholesterol in LDL [Mass/Vol] 177 mg/dL High 0 - 130 mg/dL AO ADM SS Triglyceride [Mass/Vol] 95 mg/dL Normal 0 - 150 mg/dL AO ADM SS Comment on above: Interpretive Data: T riglyceride Reference Interval: Less than 150 Normal 150-199 Borderline high risk 200-499 High risk 500 or higher Very high risk LIPIDon 10-19-2023 Cholesterol [Mass/Vol] 260 mg/dL High 0-200 [facility] ([place]) Comment on above: Result Comment: Chol esterol Reference Interval: Less than 200 Desirable 200-239 Borderline high risk 240 and above High risk Performed By: #### F T4, ADIFF, FT3, CMP, LIPID, ANEU, CBC, TSH, GFR #### [address] [address] Cholesterol in HDL [Mass/Vol] 64 mg/dL High 40-60 [facility] ([place]) Comment on above: Performed By: #### F T4, ADIFF, FT3, CMP, LIPID, ANEU, CBC, TSH, GFR #### [place] [address] Cholesterol in LDL [Mass/Vol] 177 mg/dL High 0-130 [facility] ([place]) Comment on above: Performed By: #### F T4, ADIFF, FT3, CMP, LIPID, ANEU, CBC, TSH, GFR #### [place] [id number] Triglyceride [Mass/Vol] 95 mg/dL Normal 0-150 [facility] ([place]) Comment on above: Result Comment: Trig lyceride Reference Interval: Less than 150 Normal 150-199 Borderline high risk 200-499 High risk 500 or higher Very high risk Performed By: #### F T4, ADIFF, FT3, CMP, LIPID, ANEU, CBC, TSH, GFR #### [address] [address] TSHon 10-19-2023 TSH Qn 2.24 m[IU]/L Normal 0.36-3.74 [facility] ([place]) Comment on above: Performed By: #### F T4, ADIFF, FT3, CMP, LIPID, ANEU, CBC, TSH, GFR #### [place] [id number] LABORATORYOrdered By: Fei Jacobs on 09-24-2021 Albumin BCP dye [Mass/Vol] 3.8 G/dL Invalid Interpretation Code 3.4 - 4.8 G/dL AO ADM SS Albumin/Globulin [Mass ratio] 1.3 {ratio} Invalid Interpretation Code 1.1 - 2.5 ratio AO ADM SS ALP [Catalytic activity/Vol] 108 U/L Invalid Interpretation Code 40 - 135 U/L AO ADM SS ALT With P-5'-P [Catalytic activity/Vol] 23 U/L Invalid Interpretation Code 14 - 59 U/L AO ADM SS AST With P-5'-P [Catalytic activity/Vol] 16 U/L Invalid Interpretation Code 10 - 40 U/L AO ADM SS Bili Indirect 0.6 mg/dL Invalid Interpretation Code AO Chemistry S Bilirubin [Mass/Vol] 0.7 mg/dL Invalid Interpretation Code 0.2 - 1.0 mg/dL AO ADM SS Bilirubin.direct [Mass/Vol] 0.1 mg/dL Invalid Interpretation Code 0.0 - 0.2 mg/dL AO ADM SS Cholesterol [Mass/Vol] 225 mg/dL Invalid Interpretation Code 0 - 200 mg/dL AO ADM SS Cholesterol in HDL [Mass/Vol] 59 mg/dL Invalid Interpretation Code 40 - 60 mg/dL AO ADM SS Cholesterol in LDL [Mass/Vol] 150 mg/dL Invalid Interpretation Code 0 - 130 mg/dL AO ADM SS Globulin 3.0 G/dL Invalid Interpretation Code AO ADM SS Protein [Mass/Vol] 6.8 G/dL Invalid Interpretation Code 6.4 - 8.2 G/dL AO ADM SS Triglyceride [Mass/Vol] 79 mg/dL Invalid Interpretation Code 0 - 150 mg/dL AO ADM SS No Panel Informationon 02-25 IMPRESSION: 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 Unremarkable left hip x-ray. Software Reliability Engineer: PSCB Transcribe Date/Time: Feb 25 2021 1:32P Dictated by : SAMIRA AMAYA MD This examination was interpreted and the report reviewed and electronically signed by: SAMIRA AMAYA MD on Feb 25 2021 1:39PM [facility] DIVISION OF RADIOLOGY Radiology Study observation (narrative) [facility] No Panel InformationOrdered By: Ccf Provider on 02-25-2021 [facility] XR Lumbar spine 3 Viewson * * *Final Report* * * DATE OF EXAM: Feb 25 2021 1:24PM WOX 5228 - XR LUMBAR 3V AP/LAT/L5-S1 / PROCEDURE REASON: Acute left-sided low back pain without sciatica * * * * Physician Interpretation * * * * EXAM TITLE: XR LUMBAR 3V AP/LAT/L5-S1, XR HIP 3V PELV+ AP/LAT LT EXAM DATE/TIME: 02/25/2021 1:24 PM COMPARISON: None. CLINICAL INDICATION/HISTORY: Low back pain without sciatica. TECHNIQUE: AP, lateral and cone down lateral views of the lumbar spine are presented. AP and frog lateral views of the left hip and AP view of the pelvis are presented. FINDINGS: Lumbar spine: There are five [id number]-vhkcyrg lumbar vertebrae. No acute fractures seen. There is grade 1 L4 on L5 anterolisthesis. Left-sided curvature/levoscoliosi s demonstrated. L1-2, L2-3 and L4-5 disc space narrowing is demonstrated. There is mild osteophyte formation, with facet arthrosis. Kissing spine visualized on lateral view. Left hip: No acute fractures or subluxation of the left hip. The joint space appears maintained. No significant osteophyte formation seen. The visualized pelvic bones are intact. The soft tissue is within normal limits. DIVISION OF RADIOLOGY Provider, [facility] - 02/25/2021 * * *Final Report* * * DATE OF EXAM: Feb 25 2021 1:24PM WOX 5228 - XR LUMBAR 3V AP/LAT/L5-S1 / PROCEDURE REASON: Acute left-sided low back pain without sciatica * * * * Physician Interpretation * * * * EXAM TITLE: XR LUMBAR 3V AP/LAT/L5-S1, XR HIP 3V PELV+ AP/LAT LT EXAM DATE/TIME: 02/25/2021 1:24 PM COMPARISON: None. CLINICAL INDICATION/HISTORY: Low back pain without sciatica. TECHNIQUE: AP, lateral and cone down lateral views of the lumbar spine are presented. AP and frog lateral views of the left hip and AP view of the pelvis are presented. FINDINGS: Lumbar spine: There are five kmh-nhz-zuvgzob lumbar vertebrae. No acute fractures seen. There is grade 1 L4 on L5 anterolisthesis. Left-sided curvature/levoscoliosi s demonstrated. L1-2, L2-3 and L4-5 disc space narrowing is demonstrated. There is mild osteophyte formation, with facet arthrosis. Kissing spine visualized on lateral view. Left hip: No acute fractures or subluxation of the left hip. The joint space appears maintained. No significant osteophyte formation seen. The visualized pelvic bones are intact. The soft tissue is within normal limits. 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 Unremarkable left hip x-ray. Software Reliability Engineer: VANESSA Transcribe Date/Time: Feb 25 2021 1:32P Dictated by : SAMIRA AMAYA MD This examination was interpreted and the report reviewed and electronically signed by: SAMIRA AMAYA MD on Feb 25 2021 1:39PM [facility] XR Pelvis and Hip - left AP and Lateral frogon 02-25-2021 * * *Final Report* * * DATE OF EXAM: Feb 25 2021 1:24PM WOX 5351 - XR HIP 3V PELV+ AP/LAT LT / PROCEDURE REASON: Acute hip pain, left * * * * Physician Interpretation * * * * EXAM TITLE: XR LUMBAR 3V AP/LAT/L5-S1, XR HIP 3V PELV+ AP/LAT LT EXAM DATE/TIME: 02/25/2021 1:24 PM COMPARISON: None. CLINICAL INDICATION/HISTORY: Low back pain without sciatica. TECHNIQUE: AP, lateral and cone down lateral views of the lumbar spine are presented. AP and frog lateral views of the left hip and AP view of the pelvis are presented. FINDINGS: Lumbar spine: There are five [id number] lumbar vertebrae. No acute fractures seen. There is grade 1 L4 on L5 anterolisthesis. Left-sided curvature/levoscoliosi s demonstrated. L1-2, L2-3 and L4-5 disc space narrowing is demonstrated. There is mild osteophyte formation, with facet arthrosis. Kissing spine visualized on lateral view. Left hip: No acute fractures or subluxation of the left hip. The joint space appears maintained. No significant osteophyte formation seen. The visualized pelvic bones are intact. The soft tissue is within normal limits. DIVISION OF RADIOLOGY Provider, [facility] [facility] - 02/25/2021 * * *Final Report* * * DATE OF EXAM: Feb 25 2021 1:24PM WOX [id number] - XR HIP 3V PELV+ AP/LAT LT / PROCEDURE REASON: Acute hip pain, left * * * * Physician Interpretation * * * * EXAM TITLE: XR LUMBAR 3V AP/LAT/L5-S1, XR HIP 3V PELV+ AP/LAT LT EXAM DATE/TIME: 02/25/2021 1:24 PM COMPARISON: None. CLINICAL INDICATION/HISTORY: Low back pain without sciatica. TECHNIQUE: AP, lateral and cone down lateral views of the lumbar spine are presented. AP and frog lateral views of the left hip and AP view of the pelvis are presented. FINDINGS: Lumbar spine: There are five uco-xur-dcvyhlh lumbar vertebrae. No acute fractures seen. There is grade 1 L4 on L5 anterolisthesis. Left-sided curvature/levoscoliosi s demonstrated. L1-2, L2-3 and L4-5 disc space narrowing is demonstrated. There is mild osteophyte formation, with facet arthrosis. Kissing spine visualized on lateral view. Left hip: No acute fractures or subluxation of the left hip. The joint space appears maintained. No significant osteophyte formation seen. The visualized pelvic bones are intact. The soft tissue is within normal limits. 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 Unremarkable left hip x-ray. Software Reliability Engineer: PSCB Transcribe Date/Time: Feb 25 2021 1:32P Dictated by : SAMIRA AMAYA MD This examination was interpreted and the report reviewed and electronically signed by: SAMIRA AMAYA MD on Feb 25 2021 1:39PM [facility] No Panel Information [facility] Vital Signs Date Time Vital Sign Value Performing Clinician Facility 03-08-2024 16:06-0400 Diastolic Blood Pressure Non-Invasive 60 mm[Hg] DR ADENIKE SU MD [facility] 03-08-2024 16:06-0400 Heart rate 74 /min DR ADENIKE SU MD [facility] 03-08-2024 16:06-0400 Respiratory rate 18 /min DR ADENIKE SU MD [facility] 03-08-2024 16:06-0400 Systolic Blood Pressure Non-Invasive 120 mm[Hg] DR ADENIKE SU MD [facility] 03-08-2024 12:41-04[address] Blood Pressure Cuff Size DR ADENIKE SU MD [facility] 03-08-2024 12:41-[address] ADENIKE SU MD [facility] 03-08-2024 12:41-[address] ADENIKE SU MD [facility] 03-08-2024 12:41-0400 Body temperature 97.34 [degF] DR ADENIKE SU MD [facility] 03-08-2024 12:41-0400 Diastolic Blood Pressure Non-Invasive 69 mm[Hg] DR ADENIKE SU MD [facility] 03-08-2024 12:41-0400 Heart rate 76 /min DR ADENIKE SU MD [facility] 03-08-2024 12:41-0400 Respiratory rate 18 /min DR ADENIKE SU MD [facility] 03-08-2024 12:41-0400 Systolic Blood Pressure Non-Invasive 125 mm[Hg] DR ADENIKE SU MD [facility] 07-02-2022 12:13-0400 Diastolic blood pressure 75 mm[Hg] DR TJ SINGH MD [facility] 07-02-2022 12:13-0400 Heart rate 75 /min DR TJ SINGH MD [facility] 07-02-2022 12:13-0400 Respiratory rate 18 /min DR TJ SINGH MD [facility] 07-02-2022 12:13-0400 Systolic blood pressure 130 mm[Hg] DR JT SINGH MD [facility] 07-02-2022 11:39-0400 Body temperature 97.88 [degF] DR TJ SINGH MD [facility] 07-02-2022 11:39-0400 Diastolic blood pressure 80 mm[Hg] DR TJ SINGH MD [facility] 07-02-2022 11:39-0400 Heart rate 70 /min DR TJ SINGH MD [facility] 07-02-2022 11:39-0400 Respiratory rate 18 /min DR TJ SINGH MD [facility] 07-02-2022 11:39-0400 Systolic blood pressure 137 mm[Hg] DR TJ SINGH MD [facility] 01-03-2022 09:43-0400 Body height 157.5 cm Samreen Banjac CASKET TRIMMER.REPA[employer] ARMATURE WINDER Work Phone: [facility] 01-03-2022 09:43-0400 Body weight 59.74 kg Samreen Banjac CASKET TRIMMER.REPAIR AR[employer]URE W[employer]ER Work Phone: [facility] 01-03-2022 09:43-0400 Diastolic blood pressure 66 mm[Hg] Samreen Banjac CASKET TRIMMER.REPA[employer]URE W[employer]ER Work Phone: [facility] 01-03-2022 09:43-0400 Heart rate 74 /min Samreen Banjac CASKET TRIMMER.REPAIR [employer]URE W[employer]ER Work Phone: [facility] 01-03-2022 09:43-0400 Respiratory rate 18 /min Samreen Banjac CASKET TRIMMER.REPAIR [employer]URE W[employer]ER Work Phone: [facility] 01-03-2022 09:43-0400 SaO2% (BldA) [Mass fraction] 98 % Samreen Banjac CASKET TRIMMER.REPAIR AR[employer]URE W[employer]ER Work Phone: [facility] 01-03-2022 09:43-0400 Systolic blood pressure 103 mm[Hg] Samreen Juany MONTOYA.REPAIR ARMATURE WINDER Work Phone: [facility] Encounters Encounter Date Encounter Type Care Provider Facility Start: 07-18-2024 End: 07-18-2024 ambulatory LAY ESCOBAR Facility: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 (Primary Dx); Choroidal nevus, right Start: 07-12-2024 End: 07-12-2024 ambulatory GLENDY SMITH DO Facility:A Start: 07-12-2024 End: 07-12-2024 Patient encounter [facility] Start: 06-12-2024 End: 06-12-[address] LAY ESCOBAR DO Facility:A Start: 06-12-2024 End: 06-12-2024 Patient encounter [facility] Start: 06-12-2024 ambulatory GLENDY SMITH Facility:A Start: 06-07-2024 ambulatory GLENDY SMITH Facility:A Start: 06-05-2024 End: 06-05-2024 ambulatory LAY ESCOBAR Facility:A Start: 06-05-2024 End: 06-05-2024 Patient encounter [facility] Start: 04-24-2024 End: 04-24-2024 ambulatory LAY ESCOBAR Facility:[facility] Start: 04-24-2024 End: 04-24-[address] LAY ESCOBAR DO [facility] Start: 03-18-2024 End: 03-18-2024 ambulatory BRYAN ECHEVARRIA DO Facility:[facility] Start: 03-18-2024 End: 03-18-2024 Patient encounter procedure BRYAN ECHEVARRIA DO [facility] Start: 03-08-[address] RUSH SU MD [facility] Start: 03-08-2024 End: 03-08-2024 Emergency department patient visit DR ADENIKE SU MD [facility] Start: 03-08-2024 End: 03-08-[address] ADENIKE SU MD [facility] Start: 02-29-2024 End: 02-29-2024 ambulatory TALIB AGUERO Facility:[facility] Start: 02-29-2024 End: 02-29-2024 Patient encounter procedure Talib Aguero MD Work Phone: Ophthalmology Comment on above: Pseudophakia (Primar y Dx); Early dry stage nonexudative age-related macular degeneration of both eyes; Choroidal nevus, right; PCO (posterior capsular opacification), right Start: 01-17-2024 End: 01-17-2024 ambulatory LAY ESCOBAR Facility:[facility] Start: 01-17-2024 End: 01-17-[address] LAY ESCOBAR DO [facility] Start: 10-19-2023 End: 10-19-2023 ambulatory LAY ESCOBAR Facility:[facility] Start: 10-19-2023 End: 10-19-[address] LAY ESCOBAR DO [facility] Start: 06-20-2023 End: 06-20-2023 Patient encounter procedure Jacobo Zamora MD Work Phone: Ophthalmology Comment on above: 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 (Primary Dx); Benign neoplasm of right choroid Start: 02-07-2023 End: 02-07-2023 Patient encounter procedure Talib Aguero MD Work Phone: Ophthalmology Comment on above: Pseudophakia (Primar y Dx); PCO (posterior capsular opacification), bilateral; Retina hole, bilateral; Squamous blepharitis of upper and lower eyelids of both eyes Start: 01-09-2023 End: 01-09-[address] LAY ESCOBAR DO [facility] Start: 08-25-2022 End: 08-25-2022 Patient encounter procedure LM LIU CASKET TRIMMER-REPAIR [employer]URE WINDER [facility] Start: 07-02-2022 End: 07-02-2022 Emergency department patient visit DR TJ SINGH MD [facility] Start: 03-23-2022 ambulatory Talib everett MD Work Phone: [facility] Start: 03-23-2022 Follow-up encounter Talib Aguero MD Work Phone: Ophthalmology Comment on above: Followup visit 2 Start: 03-17-2022 End: 03-17-2022 Patient encounter procedure Talib Aguero MD Work Phone: Ophthalmology Comment on above: Pseudophakia (Primar y Dx); Choroidal nevus, right; Early dry stage nonexudative age-related macular degeneration of both eyes Start: 01-25-2022 End: 01-25-2022 Patient encounter procedure Talib Aguero MD Work Phone: Ophthalmology Comment on above: Pseudophakia (Primar y Dx) Start: 01-18-2022 End: 01-18-2022 Patient encounter procedure Talib Aguero MD Work Phone: Ophthalmology Comment on above: Pseudophakia (Primar y Dx) Start: 01-12-2022 Telephone encounter Talib Aguero MD Work Phone: Ophthalmology Comment on above: Patient Update Start: 01-11-2022 End: 01-11-2022 Patient encounter procedure Talib Aguero MD Work Phone: Ophthalmology Comment on above: Pseudophakia (Primar y Dx) Start: 01-03-2022 ambulatory Talib everett MD Work Phone: Ophthalmology Comment on above: Lens implant options Start: 01-03-2022 End: 01-03-2022 Patient encounter procedure Samreenjeanne Harrington CASKET TRIMMER.REPAIR [employer]URE W[employer]ER Work Phone: Internal Medicine Comment on above: Preoperative examina tion (Primary Dx); Nuclear senile cataract of both eyes; Paroxysmal atrial flutter (HCC); Aortic valve sclerosis; Nonrheumatic mitral valve regurgitation; Nonrheumatic tricuspid valve regurgitation; RLS (restless legs syndrome) Nuclear sclerotic ca taract of both eyes (Primary Dx) Start: 01-03-2022 End: 01-03-2022 Preprocedural examination done Samreen Edenjac CASKET TRIMMER.REPAIR ARMATURE WINDER Work Phone: Internal Medicine Start: 01-02-2022 Preprocedural examination done Samreen Banjac CASKET TRIMMER.REPAIR AR[employer]URE W[employer]ER Work Phone: [facility] Work Phone: Start: 12-24-2021 End: 12-24-[address] LAY ESCOBAR DO [facility] Start: 10-13-2021 End: 02-21-[address] LAY ESCOBAR DO [facility] Start: 09-24-2021 End: 09-24-[address] KRZYSZTOF KOO MD [facility] Start: 02-25-2021 End: 02-25-2021 Subsequent hospital visit by physician Xr [facility] Robert Work Phone: Radiology Comment on above: Acute hip pain, left [M25.552] Procedures Date Procedure Procedure Detail Performing Clinician Start: 07-18-2024 Computerized ophthal radha imaging retina Jacobo Zamora MD Work Phone: Start: 03-17-2022 30 DAY LEFT EYE OUTC OMES PROTOCOL E-ETDRS VISUAL ACUITY Talib Aguero MD Work Phone: Start: 02-06-[address] BUCK ESCOBAR DO Comment on above: Both eyes, done two weeks apart. Start: 01-03-2022 PREOP LEFT EYE OUTCO MES PROTOCOL E-ETDRS VISUAL ACUITY Talib Aguero MD Work Phone: Start: 01-03-2022 PREOP RIGHT EYE OUTC OMES PROTOCOL E-ETDRS VISUAL ACUITY Talib Aguero MD Work Phone: Start: 02-25-2021 Radex hip unilateral with pelvis 2-3 views Erin Pedersen CASKET TRIMMER.REPAIR ARMATURE WINDER Work Phone: Start: 10-09-2019 Colonoscopy GLENDY CR ITES-BACHERT DO Carpal tunnel syndro me (disorder) DR KRZYSZTOF KOO MD Comment on above: Right, closed and op en repairs. Hysterectomy DR KRZYSZTOF MILIAN MD Comment on above: total Plan of Treatment Date Care Activity Detail Author Start: 03-04-2025 End: 03-04-2025 Patient encounter procedure 03/04/2025 1:15 PM EDT Office Visit [facility] [address] [address] Talib Aguero MD [address] [place] [address] Return in 1 year Ophthalmology Comment on above: Return in 1 year Start: 07-18-2024 End: 07-18-2024 Patient encounter procedure 07/18/2024 7:45 AM EDT Office Visit [facility] [address] [address] Jacobo Zamora MD [address] [address] MACULAR DEGENERATION ANNUAL F/U Ophthalmology Comment on above: MACULAR DEGENERATION ANNUAL F/U Start: 07-03-2024 End: 12-10-2024 OCT MACULA CIRRUS OU (BOTH EYES) OCT MACULA CIRRUS OU (BOTH EYES) [facility] Imaging Routine Early dry stage nonexudative age-related macular degeneration of both eyes Expected: 07/03/2024, Expires: 12/10/2024 [facility] Work Phone: Comment on above: Expected: 07/03/2024 , Expires: 12/10/2024 Start: 06-25-2024 End: 06-25-2024 Patient encounter procedure 06/25/2024 10:00 AM EDT Office Visit [facility] [address] [address] Jacobo Zamora MD [address] [address] MACULAR DEGENERATION ANNUAL F/U Ophthalmology Comment on above: MACULAR DEGENERATION ANNUAL F/U Start: 06-09-2024 Covid-19 Vaccine ( season) Covid-19 Vaccine ( season) [facility] Start: 06-09-2024 Influenza vaccination Influenza Vacc ine (#1) [facility] Start: 10-09-2023 Advance Directive Discussion Advance Directive Discussion [facility] Start: 10-09-2023 Behavioral Health Screening Behavioral Health Screening [facility] Start: 06-09-2023 Covid-19 Vaccine () Covid-19 Vaccine () [facility] Start: 06-09-2023 Influenza vaccination Influenza Vacc ine (#1) [facility] Start: 10-09-2022 ADVANCE DIRECTIVE DISCUSSION ADVANCE DIRECTIVE DISCUSSION [facility] Start: 10-09-2022 DEPRESSION ASSESSMENT DEPRESSION ASS ESSMENT [facility] Start: 01-05-2022 COVID-19 VACCINE (4 - Booster for Moderna series) COVID-19 VACCINE (4 - Booster for Moderna series) [facility] Start: 11-02-2021 COVID-19 VACCINE (4 - Booster for Moderna series) COVID-19 VACCINE (4 - Booster for Moderna series) [facility] Start: 11-02-2021 Covid-19 Vaccine (4 - Moderna series) Covid-19 Vaccine (4 - Moderna series) [facility] Start: 10-09-2021 ADVANCE DIRECTIVE DISCUSSION ADVANCE DIRECTIVE DISCUSSION [facility] Start: 11-07-2018 Urine microalbumin profile [facility] Start: 2010 BONE DENSITY BONE DENSITY [facility] Start: 2010 Bone Density Screening Bone Density Screening [facility] Start: 2010 Screening for osteoporosis Bone Density Screening [facility] Start: 1995 SHINGRIX VACCINE (1 of 2) SHINGRIX VACCINE (1 of 2) [facility] Start: 1990 DIABETES SCREEN DIABETES SCREEN [facility] Start: 1990 Diabetes Screening Diabetes Screenin g [facility] Start: 1963 Anxiety Screening Anxiety Screening [facility] Start: 1963 Depression Screening Depression Scre ening [facility] Start: 1963 HEPATITIS C SCREENING HEPATITIS C [facility] Start: 1963 Hepatitis C screening Hepatitis C [facility] Start: 1957 Adult depression screening assessment DEPRESSION SCREENING [facility] Camera fundoscopy FUNDUS PHOTOS OD (RIGHT EYE) [facility] Imaging Routine Early dry stage nonexudative age-related macular degeneration of both eyes Benign neoplasm of right choroid 06/20/2023 1:15 PM EDT [facility] Work Phone: OCT MACULA CIRRUS OU (BOTH EYES) OCT MACULA CIRRUS OU (BOTH EYES) [facility] Imaging Routine Early dry stage nonexudative age-related macular degeneration of both eyes 06/20/2023 11:54 AM EDT [facility] Work Phone: YAG CAPSULOTOMY OD (RIGHT EYE) YAG CAPSULOTOMY OD (RIGHT EYE) Ophthalmology Routine PCO (posterior capsular opacification), right Ordered: 03/01/2024 [facility] Work Phone: Comment on above: Ordered: 03/01/2024 [facility] Immunizations Immunization Date Immunization Notes Care Provider [facility] 10-19-2023 RSV vaccine preF3, recombinant DR LAY ESCOBAR DO [facility] 07-26-2023 influenza, high dose seasonal, preservative-free; Translations: [Fluad Quadrivalent PF ] DR LAY ESCOBAR DO [facility] 07-26-2023 influenza virus vacc ine, unspecified formulation Xr Robert Work Phone: [facility] 01-05-[address] LAY ESCOBAR DO [facility] 10-19-[address] LAY ESCOBAR DO [facility] 08-16-2022 influenza, high dose seasonal, preservative-free [facility] CASKET TRIMMER-REPAIR AR[employer]URE WINDER [facility] 08-16-2022 influenza virus vacc ine, unspecified formulation Jacobo Zamora MD Work Phone: [facility] 09-07-2021 COVID-19, mRNA, LNP- S, PF, 100 mcg/ 0.5 mL dose; Translations: [Moderna COVID-19 Vaccine] DR KRZYSZTOF KOO MD [facility] 07-29-2021 influenza (aIIV4) vaccine, age 65+ yr, quadrivalent, PF (FLUAD QUADRIVALENT) [facility]icho [facility] Work Phone: [facility] Work Phone: 07-29-2021 influenza, high dose seasonal, preservative-free; Translations: [Fluad Quadrivalent PF ] DR KRZYSZTOF KOO MD [facility] 12-08-2020 SARS-CoV-2 (COVID-19 ) mRNA-[address] KRZYSZTOF KOO MD [facility] 11-10-2020 SARS-CoV-2 (COVID-19 ) mRNA-[address] KRZYSZTOF KOO MD [facility] 08-19-2020 pneumococcal polysaccharide vaccine, 23 valent; Translations: [Pneumovax 23] DR KRZYSZTOF KOO MD [facility] Comment on above: Early/Late Reason: O ther: 06-25-2020 influenza, injectabl e, quadrivalent, preservative free; Translations: [Fluarix PF Quadrivalent ] DR KRZYSZTOF KOO MD [facility] 08-01-2019 influenza, injectabl e, quadrivalent, preservative free; Translations: [Fluarix PF Quadrivalent ] DR KRZYSZTOF KOO MD [facility] 11-06-2018 tetanus and diphther ia toxoids, adsorbed, preservative free, for adult use (5 Lf of tetanus toxoid and 2 Lf of diphtheria toxoid) DR KRZYSZTOF KOO MD [facility] 07-19-2018 influenza virus vacc ine, unspecified formulation DR KRZYSZTOF KOO MD [facility] 07-19-2018 influenza, injectabl e, quadrivalent, preservative free Samreen Banjac CASKET TRIMMER.[employer]PA[employer] W[employer]ER Work Phone: [facility] Work Phone: 05-09-2017 zoster vaccine, live DR KRZYSZTOF KOO MD [facility] 05-08-2017 zoster vaccine, live DR KRZYSZTOF KOO MD [facility] 07-21-2016 influenza virus vacc ine, unspecified formulation DR KRZYSZTOF OKO MD [facility] 07-21-2016 influenza, injectabl e, quadrivalent, contains preservative Samreen Banjac CASKET TRIMMER.REPA[employer]URE W[employer]ER Work Phone: [facility] Work Phone: 07-15-2015 influenza virus vacc ine, unspecified formulation DR KRZYSZTOF KOO MD [facility] 07-15-2015 influenza, seasonal, injectable Samreen Banjac CASKET TRIMMER.REPA[employer]URE W[employer]ER Work Phone: [facility] Work Phone: 09-29-2014 pneumococcal conjuga te vaccine, [address] KRZYSZTOF KOO MD [facility] 07-14-2014 influenza virus vacc ine, unspecified formulation DR KRZYSZTOF KOO MD [facility] 07-14-2014 influenza, seasonal, injectable Samreen Banjac CASKET TRIMMER.REPAIR AR[employer]URE W[employer]ER Work Phone: [facility] Work Phone: 08-28-2013 influenza virus vacc ine, unspecified formulation DR KRZYSZTOF KOO MD [facility] 08-28-2013 influenza, seasonal, injectable Samreen Banjac CASKET TRIMMER.REPAIR AR[employer]URE W[employer]ER Work Phone: [facility] Work Phone: 08-08-2012 influenza virus vacc ine, unspecified formulation DR KRZYSZTOF KOO MD [facility] 08-08-2012 influenza, seasonal, injectable Samreen Banjac CASKET TRIMMER.REPAIR [employer]URE W[employer]ER Work Phone: [facility] Work Phone: 07-09-2009 pneumococcal polysaccharide vaccine, [address] KRZYSZTOF KOO MD [facility] 07-09-2009 unknown vaccine or immune globulin Samreen Banjac CASKET TRIMMER.REPAIR [employer]URE W[employer]ER Work Phone: [facility] Work Phone: 05-22-2008 tetanus and diphther ia toxoids, adsorbed, preservative free, for adult use (5 Lf of tetanus toxoid and 2 Lf of diphtheria toxoid) DR KRZYSZTOF KOO MD [facility] Payers Date Payer Category Payer Medicare MEDICARE MEDICAR E A AND B [id number] 2010-Present [phone] [place] [address] Medicare [id number] 2010 Medicare MEDICARE MEDICAR E A AND B [id number] 2010-Present [phone] [place] [address] Medicare [id number] 2010 Unknown [employer] [place] [employer] [place] [id number] 2010-Present [phone] [address] [employer] [place] [address] Indemnity [id number] 2010 Unknown [employer] [place] [employer] [place]IC[place] SUPPLE[place] [id number] 2010-Present [phone] [address] [employer] [place] [address] [address] Indemnity [id number] 2010 Medicare [id number] 2010 Unknown [id number] 1945 Unknown [id number] 7 1945 Unknown [id number] 7 1945 Unknown [id number] 7 1945 Unknown [id number] 7 1945 Unknown [id number] 7 1945 Unknown [id number] 7 1945 Unknown [id number] 7 1945 Unknown [id number] 7 1945 Unknown [id number] 7 1945 Unknown [id number] 7 1945 Unknown [id number] 7 Social History Date Type Detail Facility Start: 04-25-2019 End: 04-06-2020 Never smoked tobacco (finding) [facility] Start: 1945 Sex Assigned At Female A [facility] Start: 01-07-2014 End: 04-06-2020 Tobacco use and exposure Smokeless tobacco non-user [facility] Work Phone: Start: 01-03-2022 End: 07-18-2024 Alcohol intake Current drinker of alcohol (finding) [facility] Start: 05-21-2020 History SDOH Alcohol Comment rare [facility] Start: 01-26-2021 End: 01-24-2022 Exposure to SARS-CoV-2 (event) Not sure [facility] Start: 06-20-2023 End: 02-29-2024 History of Social function [facility] Start: 06-20-2023 End: 02-29-2024 Tobacco use panel [facility] National Score (1-100), lower number is lower risk 60 [facility] Medical Equipment Procedure Code Equipment Code Equipment Origin al Text Equipment Identifier Dates Lens Iol 0d +24 Maritza Uv Abs - [id number] Start: 01-10-2022 Comment on above: Description: -0.10 Lens Iol 0d +24. 5 Maritza Uv Abs - [id number] Start: 01-24-2022 Comment on above: Description: -0.10 Functional Status Date Assessment Result Facility 03-08-2024 Functional Status [facility] Functional Status Standard Safet y ID band on, Allergy Band on, Call device within reach, Bed in low position, Wheels locked, personal items within reach, Visitor at bedside, Safety level maintained [facility] 07-02-2022 Functional Status ID band on, Call device within reach, Bed in low position, Wheels locked, Phone within reach, personal items within reach, Assistive devices within reach, Toileting device within reach, Bedside Cart Locked, Visitor at bedside, Safety level maintained [facility] Mental Status Date Assessment Result Facility 03-08-2024 Mental Status Orientation Oriented x 4 [facility] 03-08-2024 Mental Status [facility] 07-02-2022 Mental Status Oriented x 4 [facility] Clinical Notes 02-25-2021 to 07-18-2024 Jacobo Zamora MD - 07/18/2024 8:00 AM EDTRadiTalib Jacob MD - 02/29/2024 1:20 PM EDTSJacobo gaona MD - 06/20/2023 12:45 PM EDT Note Date & Type Note Facility 07-18-2024 Note Date of Procedure 07/18/2024. Interpretation Right Eye Normal without fluid. Left Eye Normal without fluid. [facility] 07-18-2024 Note HNO ID: [id number] Author: JACOBO ZAMORA MD Service: ? Author Type: Physician Type: Progress Notes Filed: 07/18/2024 08:06 Note Text: This is a 75 year old diagnosed upon referral with age related macular degeneration. Visual acuity is 20/20 RE, 20/20 LE. Intraocular pressures are 15/17. Anterior segment exam is notable for ccentered PCLs. Posterior segment exam is significant for a nevus RE 1DD without pigment or SRF. OCT macula shows normal foveal contour, with fine drusen. Decrease MVI to once daily and add lutein. I have confirmed and edited as necessary the relevant ophthalmic history, ROS, and the neuro exam findings as obtained by others. I have seen and examined this patient. I have discussed the case and the management of this patient's care with the Resident/Fellow, if applicable. I also have reviewed and agree with the assessment and plan as stated above and agree with all of its relevant components. [facility] 07-18-2024 History of Present illness Narrative This is a 75 year old diagnosed upon referral with age related macular degeneration. Visual acuity is 20/20 RE, 20/20 LE. Intraocular pressures are 15/17. Anterior segment exam is notable for ccentered PCLs. Posterior segment exam is significant for a nevus RE 1DD without pigment or SRF. OCT macula shows normal foveal contour, with fine drusen. Decrease MVI to once daily and add lutein. I have confirmed and edited as necessary the relevant ophthalmic history, ROS, and the neuro exam findings as obtained by others. I have seen and examined this patient. I have discussed the case and the management of this patient's care with the Resident/Fellow, if applicable. I also have reviewed and agree with the assessment and plan as stated above and agree with all of its relevant components. documented in this encounter [facility] 07-12-2024 Note ORIGINAL EXAMINATION: MRI OF THE PELVIS WITHOUT AND WITH CONTRAST, 07/12/2024 2:05 pm TECHNIQUE: Multiplanar multisequence MRI of the pelvis was performed without and with the administration of intravenous contrast. COMPARISON: Ultrasound pelvis 04/24/[address] pelvis 06/12/2024 HISTORY: Reason for exam: Rule out urethral diverticulum, looking from mass around bladder FINDINGS: UTERUS: Surgically absent. RIGHT OVARY: Not visualized, likely surgically absent. LEFT OVARY: Not visualized, likely surgically absent. VAGINA: The vagina is collapsed the unremarkable appearance for COLLECTING SYSTEM: The bladder is under distended although grossly unremarkable. The urethra is also unremarkable without evidence of urethral diverticulum or irregular masslike enhancement. LYMPH NODES AND MESENTERY: No lymphadenopathy. BONES: Normal Marrow Signal SUPERFICIAL SOFT TISSUES: Normal pelvic wall. Colonic diverticulosis. IMPRESSION: Unremarkable urethra without evidence of urethral diverticulum. No suspicious lesion. I have personally reviewed the images of this examination and agree with the resident's findings and interpretations. Interpreted by: Marcos Ren Preliminary Report By: Thomas Connor Electronically signed By Marcos Ren Dictated Date: 07/12/2024 2:38:02 PM Prelim Date: 07/12/2024 4:58:13 PM Sign Date: 07/12/2024 4:58:13 PM [facility] + Plan note Future Scheduled TestsCT Pelvis w/ Contrast 06/05/24CT Pelvis w/o Contrast 06/19/24MRI Pelvis w/ + w/o Contrast 06/05/24 [facility] 03-18-2024 Note ORIGINAL EXAMINATION: THREE XRAY VIEWS OF THE LEFT FOOT03/18/2024 10:13 am FOOT 3 VIEWS LEFT COMPARISON: None HISTORY: ORDERING SYSTEM PROVIDED HISTORY: Reason for Exam: pain, injury, bruising FINDINGS: No acute fracture or dislocation is identified.Sclerotic density in the distal 2nd metatarsal is likely a bone island or other nonaggressive lesion. Joint space loss and mild spurring seen at the 1st metatarsophalangeal joint. Small enthesophytes seen at the Achilles insertion. There is no radiopaque foreign body. IMPRESSION: Mild degenerative changes. No acute osseous abnormality Interpreted by: Chinmay uBrk MD Preliminary Report By: Chinmay Burk MD Electronically signed By Chinmay Burk MD Dictated Date: 03/18/2024 11:11:13 AM Prelim Date: 03/18/2024 11:12:17 AM Sign Date: 03/18/2024 11:12:17 AM Ordering Provider: BRYAN ECHEVARRIA [facility] 03-08-2024 Hospital Discharge instructions Patient Education 03/08/2024 15:54:25 Back Sprain/Strain Back Sprain or Strain Injury to the muscles (strain) or ligaments (sprain) around the spine can be troubling. Injury may occur after a sudden forceful twisting or bending force such as in a car accident, after a simple awkward movement, or after lifting something heavy with poor body positioning. In any case, muscle spasm is often present and adds to the pain. Thankfully, most people feel better in 1 to 2 weeks, and most of the rest in 1 to 2 months. Most people can remain active. Unless you had a forceful or traumatic physical injury such as a car accident or fall, X-rays may not be ordered for the first evaluation of a back sprain or strain. If pain continues and does not respond to medical treatment, your healthcare provider may then order X-rays and other tests. Home care The following guidelines will help you care for your injury at home: When in bed, try to find a comfortable position. A firm mattress is best. Try lying flat on your back with pillows under your knees. You can also try lying on your side with your knees bent up toward your chest and a pillow between your knees. Don't sit for long periods. Try not to take long car rides or take other trips that have you sitting for a long time. This puts more stress on the lower back than standing or walking. During the first 24 to 72 hours after an injury or flare-up, apply an ice pack to the painful area for 20 minutes. Then remove it for 20 minutes. Do this for 60 to 90 minutes, or several times a day. This will reduce swelling and pain. Be sure to wrap the ice pack in a thin towel or plastic to protect your skin. You can start with ice, then switch to heat. Heat from a hot shower, hot bath, or heating pad reduces pain and works well for muscle spasms. Put heat on the painful area for 20 minutes, then remove for 20 minutes. Do this for 60 to 90 minutes, or several times a day. Do not use a heating pad while sleeping. It can burn the skin. You can alternate the ice and heat. Talk with your healthcare provider to find out the best treatment or therapy for your back pain. Therapeutic massage will help relax the back muscles without stretching them. Be aware of safe lifting methods. Do not lift anything over 15 pounds until all of the pain is gone. Medicines Talk to your healthcare provider before using medicines, especially if you have other health problems or are taking other medicines. You may use acetaminophen or ibuprofen to control pain, unless another pain medicine was prescribed. If you have chronic conditions like diabetes, liver or kidney disease, stomach ulcers, or gastrointestinal bleeding, or are taking blood-thinner medicines, talk with your doctor before taking any medicines. Be careful if you are given prescription medicines, narcotics, or medicine for muscle spasm. They can cause drowsiness, and affect your coordination, reflexes, and judgment. Do not drive or operate heavy machinery when taking these types of medicines. Only take pain medicine as prescribed by your healthcare provider. Follow-up care Follow up with your healthcare provider, or as advised. You may need physical therapy or more tests if your symptoms get worse. If you had X-rays your healthcare provider may be checking for any broken bones, breaks, or fractures. Bruises and sprains can sometimes hurt as much as a fracture. These injuries can take time to heal completely. If your symptoms don t improve or they get worse, talk with your healthcare provider. You may need a repeat X-ray or other tests. Call 911 Call 911 if any of the following occur: Trouble breathing Confused Very drowsy or trouble awakening Fainting or loss of consciousness Rapid or very slow heart rate Loss of bowel or bladder control When to seek medical advice Call your healthcare provider right away if any of the following occur: Pain gets worse or spreads to your arms or legs Weakness or numbness in one or both arms or legs Numbness in the groin or genital area [id number] [facility]. [address] [place] [address]. All rights reserved. This information is not intended as a substitute for professional medical care. Always follow your healthcare professional's instructions. Follow Up Care 03/08/2024 12:41:52 With:LAY ESCOBAR DO Address: [address] [place] [address] [place] [address]- [phone] When:2-4 days [facility] 03-08-2024 Note Discharge Instructions Thank you for allowing [facility] to assist you with your healthcare needs. The following is important discharge information regarding your hospital visit. Diagnosis from Today's Visit Marilu(w) phenotype Lumbar strain What to Do Next Instructions from Your Care Team No qualifying data available. Post Acute Orders No qualifying data available. You Need to Schedule the Following Appointments Follow Up with SHAWN, LAY DO When:Within 2-4 days [facility] [place] [address]- [phone] Allergies Paregoric HIVE Medications Please ask your primary doctor or pharmacist before taking any other medication not listed, including over the counter drugs, herbal medications, vitamins and or supplements as they may interact with your home medications. What How Much When Instructions Last Dose New cyclobenzaprine (cyclobenzaprine 10 mg oral tablet) 1 tab(s) by mouth Three (3) times a day Duration: 7 Days Printed Prescription New lidocaine topical (Lidoderm 5% topical patch) 1 patch(es) Topical Once a day remove patches after 12 hours Printed Prescription New methylPREDNISolone (Medrol Dosepak 4 mg oral tablet) 1 Packet(s) by mouth Once a day Duration: 6 Days as directed on package labeling Printed Prescription Unchanged apixaban (Eliquis 5 mg oral tablet) 1 tab(s) by mouth Two (2) times a day Unchanged biotin (Biotin 5000 mcg oral capsule) 1 cap by mouth Every day Unchanged cholecalciferol (Vitamin D3) 2,000 unit(s) by mouth Every day Unchanged diazePAM (diazePAM 10 mg oral tablet) 1 tab(s) by mouth Two (2) times a day Unchanged doxylamine (doxylamine 25 mg oral tablet) 1 tab(s) by mouth Daily at bedtime as needed for for sleep Unchanged famotidine (famotidine 20 mg oral tablet) 1 tab(s) by mouth Once a day Unchanged multivitamin with minerals (PreserVision) 1 tab(s) by mouth Once a day Unchanged pramipexole (pramipexole 0.25 mg oral tablet) 1 tab(s) by mouth Two (2) times a day Unchanged valACYclovir (valACYclovir 1 g oral tablet) 1 tab(s) by mouth Once a day Please take this list to your next doctor s visit. Bring all medications you take, including over the counter medications, herbals and other supplements with you to your doctor s visit. Patients and families are reminded to discard old lists and to update any records with all medication providers or retail pharmacies. Medication Leaflets lidocaine topical (LYE leavitt hutton TOP i rolanda) AneCream, Bactine, Glydo, Lidoderm, LidoRx, Medi-Quik [place], RadiaGuard, RectiCare, Regenecare DE LA ROSA [place], Solarcaine Cool Aloe What is the most important information I should know about lidocaine topical? An overdose of numbing medicine can cause fatal side effects if too much of the medicine is absorbed through your skin. Do not use large amounts of lidocaine topical, or cover treated skin areas with a bandage or plastic wrap without medical advice. Keep both used and unused lidocaine skin patches out of the reach of children or pets. The amount of lidocaine in the skin patches could be harmful to a child or pet who accidentally sucks on or swallows the patch. What is lidocaine topical? Lidocaine is a local anesthetic (numbing medication). There are many brands and forms of lidocaine available. Not all brands are listed on this leaflet. Lidocaine topical (for use on the skin) is used to reduce pain or discomfort caused by skin irritations such as sunburn, insect bites, poison marybeth, poison oak, poison sumac, and minor cuts, scratches, or rodriguez. Lidocaine topical is also used to treat rectal discomfort caused by hemorrhoids. Lidocaine intradermal device can be used in minor medical procedures such as venipuncture or peripheral intravenous cannulation. Lidocaine topical may also be used for purposes not listed in this medication guide. What should I discuss with my healthcare provider before using lidocaine topical? You should not use lidocaine topical if you are allergic to any type of numbing medicine. Fatal overdoses have occurred when numbing medicines were used without the advice of a medical doctor (such as during a cosmetic procedure like laser hair removal). However, overdose has also occurred in women treated with a numbing medicine before having a mammography. Be aware that many cosmetic procedures are performed without a medical doctor present. Tell your doctor if you have ever had: a blood cell disorder called methemoglobinemia (in you or a family member); liver disease; or if you take a heart rhythm medicine. Tell your doctor if you are or . If you apply lidocaine topical to your chest, avoid areas that may come into contact with the baby's mouth. How should I use lidocaine topical? Use this medicine exactly as directed on the label, or as it has been prescribed by your doctor. Do not apply this medicine in larger amounts than recommended. Improper use of lidocaine topical may result in . Lidocaine topical comes in many different forms (gel, spray, cream, lotion, ointment, liquid, skin patch, and others). Do not take by mouth. Topical medicine is for use only on the skin. If this medicine gets in your eyes, nose, mouth, rectum, or vagina, rinse with water. Read and carefully follow any Instructions for Use provided with your medicine. Ask your doctor or pharmacist if you do not understand these instructions. Use the smallest amount of medicine needed to numb the skin or relieve pain. Your body may absorb too much of this medicine if you use too much, if you apply it over large skin areas, or if you apply heat, bandages, or plastic wrap to treated skin areas. Skin that is cut or irritated may also absorb more topical medication than healthy skin. Do not apply this medicine to swollen skin areas or deep puncture wounds. Avoid using the medicine on skin that is raw or blistered, such as a severe burn or abrasion. Do not cover treated skin unless your doctor has told you to. Lidocaine topical may be applied with your finger tips or a cotton swab. Lidocaine intradermal device is applied by a healthcare provider. Store at room temperature away from moisture and heat. Keep both used and unused lidocaine topical skin patches out of the reach of children or pets. The amount of lidocaine in the skin patches could be harmful to a child or pet who accidentally sucks on or swallows the patch. Seek emergency medical attention if this happens. What happens if I miss a dose? Since lidocaine topical is used when needed, you may not be on a dosing schedule. Skip any missed dose if it's almost time for your next dose. Do not use two doses at one time. What happens if I overdose? Seek emergency medical attention or call the Poison Help line at . An overdose of numbing medicine can cause fatal side effects if too much of the medicine is absorbed through your skin and into your blood. Overdose symptoms may include uneven heartbeats, seizure (convulsions), slowed breathing, coma, or respiratory failure (breathing stops). Lidocaine applied to the skin is not likely to cause an overdose unless you apply more than the recommended dose. What should I avoid while using lidocaine topical? Avoid touching the sticky side of a lidocaine skin patch while applying it. Avoid accidentally injuring treated skin areas while they are numb. Avoid coming into contact with very hot or very cold surfaces. What are the possible side effects of lidocaine topical? Get emergency medical help if you have signs of an allergic reaction: hives; difficulty breathing; swelling of your face, lips, tongue, or throat. Call your doctor at once if you have: severe headache or vomiting; severe burning, stinging, or irritation where the medicine was applied; swelling or redness; sudden dizziness or drowsiness after medicine is applied; confusion, problems with speech or vision, ringing in your ears; or unusual sensations of temperature. Common side effects include: mild irritation where the medication is applied; or numbness in places where the medicine is accidentally applied. This is not a complete list of side effects and others may occur. Call your doctor for medical advice about side effects. You may report side effects to FDA at 4-855-SXT-8016. What other drugs will affect lidocaine topical? Medicine used on the skin is not likely to be affected by other drugs you use. But many drugs can interact with each other. Tell each of your health care providers about all medicines you use, including prescription and cjjy-str-[id number] medicines, vitamins, and herbal products. Where can I get more information? Your pharmacist can provide more information about lidocaine topical. Remember, keep this and all other medicines out of the reach of children, never share your medicines with others, and use this medication only for the indication prescribed. Every effort has been made to ensure that the information provided by [employer]. ('[employer]') is accurate, up-to-date, and complete, but no guarantee is made to that effect. Drug information contained herein may be time sensitive. [employer] information has been compiled for use by healthcare practitioners and consumers in the [place] and therefore [employer] does not warrant that uses outside of the [place] are appropriate, unless specifically indicated otherwise. [employer] drug information does not endorse drugs, diagnose patients or recommend therapy. [employer] drug information is an informational resource designed to assist licensed healthcare practitioners in caring for their patients and/or to serve consumers viewing this service as a supplement to, and not a substitute for, the expertise, skill, knowledge and judgment of healthcare practitioners. The absence of a warning for a given drug or drug combination in no way should be construed to indicate that the drug or drug combination is safe, effective or appropriate for any given patient. [employer] does not assume any responsibility for any aspect of healthcare administered with the aid of information [employer] provides. The information contained herein is not intended to cover all possible uses, directions, precautions, warnings, drug interactions, allergic reactions, or adverse effects. If you have questions about the drugs you are taking, check with your doctor, nurse or pharmacist. Copyright 9988-6338 [employer]. Version: 08.09. Revision Date: 06/28/2023. methylprednisolone (oral) (METH il pred NIS oh lone) Medrol, Medrol Dosepak, MethylPREDNISolone Dose Pack What is the most important information I should know about methylprednisolone? You should not use this medicine if you have a fungal infection anywhere in your body. What is methylprednisolone? Methylprednisolone is a steroid that prevents the release of substances in the body that cause inflammation. Methylprednisolone is used to treat many different inflammatory conditions such as arthritis, lupus, psoriasis, ulcerative colitis, allergic disorders, gland (endocrine) disorders, and conditions that affect the skin, eyes, lungs, stomach, nervous system, or blood cells. Methylprednisolone may also be used for purposes not listed in this medication guide. What should I discuss with my healthcare provider before taking methylprednisolone? You should not use methylprednisolone if you are allergic to it, or if you have: a fungal infection anywhere in your body. Methylprednisolone can weaken your immune system, making it easier for you to get an infection. Steroids can also worsen an infection you already have, or reactivate an infection you recently had. Tell your doctor about any illness or infection you have had within the past several weeks. To make sure methylprednisolone is safe for you, tell your doctor if you have ever had: a thyroid disorder; herpes infection of the eyes; stomach ulcers, ulcerative colitis, or diverticulitis; depression, mental illness, or psychosis; liver disease (especially cirrhosis); high blood pressure; osteoporosis; a muscle disorder such as myasthenia gravis; or multiple sclerosis. Also tell your doctor if you have diabetes. Steroid medicines may increase the glucose (sugar) levels in your blood or urine. You may also need to adjust the dose of your diabetes medications. It is not known whether this medicine will harm an unborn baby. Tell your doctor if you are or plan to become . It is not known whether methylprednisolone passes into breast milk or if it could affect the nursing baby. Tell your doctor if you are breast-feeding. How should I take methylprednisolone? Follow all directions on your prescription label. Your doctor may occasionally change your dose. Do not use this medicine in larger or smaller amounts or for longer than recommended. Methylprednisolone is sometimes taken every other day. Follow your doctor's dosing instructions very carefully. Your dose needs may change if you have unusual stress such as a serious illness, fever or infection, or if you have surgery or a medical emergency. Tell your doctor about any such situation that affects you. This medicine can cause unusual results with certain medical tests. Tell any doctor who treats you that you are using methylprednisolone. You should not stop using methylprednisolone suddenly. Follow your doctor's instructions about tapering your dose. Wear a medical alert tag or carry an ID card stating that you take methylprednisolone. Any medical care provider who treats you should know that you take steroid medication. If you need surgery, tell the surgeon ahead of time that you are using methylprednisolone. You may need to stop using the medicine for a short time. Store at room temperature away from moisture and heat. What happens if I miss a dose? Call your doctor for instructions if you miss a dose of methylprednisolone. What happens if I overdose? Seek emergency medical attention or call the Poison Help line at . An overdose of methylprednisolone is not expected to produce life threatening symptoms. However, fpc use of high steroid doses can lead to symptoms such as thinning skin, easy bruising, changes in the shape or location of body fat (especially in your face, neck, back, and waist), increased acne or facial hair, menstrual problems, impotence, or loss of interest in sex. What should I avoid while taking methylprednisolone? Avoid being near people who are sick or have infections. Call your doctor for preventive treatment if you are exposed to chicken pox or measles. These conditions can be serious or even fatal in people who are using steroid medication. Do not receive a 'live' vaccine while using methylprednisolone. The vaccine may not work as well during this time, and may not fully protect you from disease. Live vaccines include measles, mumps, rubella (MMR), polio, rotavirus, typhoid, yellow fever, varicella (chickenpox), zoster (shingles), and nasal flu (influenza) vaccine. What are the possible side effects of methylprednisolone? Get emergency medical help if you have signs of an allergic reaction: hives; difficult breathing; swelling of your face, lips, tongue, or throat. Call your doctor at once if you have: shortness of breath (even with mild exertion), swelling, rapid weight gain; bruising, thinning skin, or any wound that will not heal; blurred vision, tunnel vision, eye pain, or seeing halos around lights; severe depression, changes in personality, unusual thoughts or behavior; new or unusual pain in an arm or leg or in your back; bloody or tarry stools, coughing up blood or vomit that looks like coffee grounds; seizure (convulsions); or low potassium--leg cramps, constipation, irregular heartbeats, fluttering in your chest, increased thirst or urination, numbness or tingling. Steroids can affect growth in children. Tell your doctor if your child is not growing at a normal rate while using this medicine. Common side effects may include: fluid retention (swelling in your hands or ankles); dizziness, spinning sensation; changes in your menstrual periods; headache; mild muscle pain or weakness; or stomach discomfort, bloating. This is not a complete list of side effects and others may occur. Call your doctor for medical advice about side effects. You may report side effects to FDA at 0-569-QSG-4406. What other drugs will affect methylprednisolone? Other drugs may interact with methylprednisolone, including prescription and zaxa-qiw-ldkupxs medicines, vitamins, and herbal products. Tell each of your health care providers about all medicines you use now and any medicine you start or stop using. Where can I get more information? Your pharmacist can provide more information about methylprednisolone. Remember, keep this and all other medicines out of the reach of children, never share your medicines with others, and use this medication only for the indication prescribed. Every effort has been made to ensure that the information provided by [employer]. ('[employer]') is accurate, up-to-date, and complete, but no guarantee is made to that effect. Drug information contained herein may be time sensitive. [employer] information has been compiled for use by healthcare practitioners and consumers in the [place] and therefore [employer] does not warrant that uses outside of the [place] are appropriate, unless specifically indicated otherwise. [employer]'s drug information does not endorse drugs, diagnose patients or recommend therapy. [employer] drug information is an informational resource designed to assist licensed healthcare practitioners in caring for their patients and/or to serve consumers viewing this service as a supplement to, and not a substitute for, the expertise, skill, knowledge and judgment of healthcare practitioners. The absence of a warning for a given drug or drug combination in no way should be construed to indicate that the drug or drug combination is safe, effective or appropriate for any given patient. [facility] does not assume any responsibility for any aspect of healthcare administered with the aid of information [facility] provides. The information contained herein is not intended to cover all possible uses, directions, precautions, warnings, drug interactions, allergic reactions, or adverse effects. If you have questions about the drugs you are taking, check with your doctor, nurse or pharmacist. Copyright 3217-0203 [facility] [employer]. Version: 9.01. Revision Date: 06/07/2017. cyclobenzaprine (perico dinh) [place] What is the most important information I should know about cyclobenzaprine? You should not use cyclobenzaprine if you have a thyroid disorder, heart block, congestive heart failure, a heart rhythm disorder, or you have recently had a heart attack. Do not use cyclobenzaprine if you have taken an MAO inhibitor in the past 14 days, such as isocarboxazid, linezolid, phenelzine, rasagiline, selegiline, or tranylcypromine. What is cyclobenzaprine? Cyclobenzaprine is a muscle relaxant. It works by blocking nerve impulses (or pain sensations) that are sent to your brain. Cyclobenzaprine is used together with rest and physical therapy to relieve muscle spasms caused by painful conditions such as an injury. Cyclobenzaprine may also be used for purposes not listed in this medication guide. What should I discuss with my healthcare provider before taking cyclobenzaprine? You should not use cyclobenzaprine if you are allergic to it, or if you have: a thyroid disorder; heart block, heart rhythm disorder, congestive heart failure; or if you have recently had a heart attack. Cyclobenzaprine is not approved for use by anyone younger than 15 years old. Do not use cyclobenzaprine if you have taken an MAO inhibitor in the past 14 days. A dangerous drug interaction could occur. MAO inhibitors include isocarboxazid, linezolid, phenelzine, rasagiline, selegiline, and tranylcypromine. Some medicines can interact with cyclobenzaprine and cause a serious condition called serotonin syndrome. Be sure your doctor knows if you also take stimulant medicine, opioid medicine, herbal products, or medicine for depression, mental illness, Parkinson's disease, migraine headaches, serious infections, or prevention of nausea and vomiting. Ask your doctor before making any changes in how or when you take your medications. Tell your doctor if you have ever had: liver disease; glaucoma; enlarged prostate; or problems with urination. It is not known whether this medicine will harm an unborn baby. Tell your doctor if you are or plan to become . It may not be safe to breast-feed while using this medicine. Ask your doctor about any risk. Older adults may be more sensitive to the effects of this medicine. How should I take cyclobenzaprine? Follow all directions on your prescription label and read all medication guides or instruction sheets. Your doctor may occasionally change your dose. Use the medicine exactly as directed. Cyclobenzaprine is usually taken once daily for only 2 or 3 weeks. Follow your doctor's dosing instructions very carefully. Swallow the capsule whole and do not crush, chew, break, or open it. Take the medicine at the same time each day. Call your doctor if your symptoms do not improve after 3 weeks, or if they get worse. Store at room temperature away from moisture, heat, and light. What happens if I miss a dose? Take the medicine as soon as you can, but skip the missed dose if it is almost time for your next dose. Do not take two doses at one time. What happens if I overdose? Seek emergency medical attention or call the Poison Help line at . An overdose of cyclobenzaprine can be fatal. Overdose symptoms may include severe drowsiness, vomiting, fast heartbeats, tremors, agitation, or hallucinations. What should I avoid while taking cyclobenzaprine? Avoid driving or hazardous activity until you know how this medicine will affect you. Your reactions could be impaired. Avoid drinking alcohol. Dangerous side effects could occur. What are the possible side effects of cyclobenzaprine? Get emergency medical help if you have signs of an allergic reaction: hives; difficult breathing; swelling of your face, lips, tongue, or throat. Stop using cyclobenzaprine and call your doctor at once if you have: fast or irregular heartbeats; chest pain or pressure, pain spreading to your jaw or shoulder; or sudden numbness or weakness (especially on one side of the body), slurred speech, balance problems. Seek medical attention right away if you have symptoms of serotonin syndrome, such as: agitation, hallucinations, fever, sweating, shivering, fast heart rate, muscle stiffness, twitching, loss of coordination, nausea, vomiting, or diarrhea. Serious side effects may be more likely in older adults. Common side effects may include: drowsiness, tiredness; headache, dizziness; dry mouth; or upset stomach, nausea, constipation. This is not a complete list of side effects and others may occur. Call your doctor for medical advice about side effects. You may report side effects to FDA at 1-034-KAM-9630. What other drugs will affect cyclobenzaprine? Using cyclobenzaprine with other drugs that make you drowsy can worsen this effect. Ask your doctor before using opioid medication, a sleeping pill, a muscle relaxer, or medicine for anxiety or seizures. Tell your doctor about all your other medicines, especially: bupropion (Zyban, for smoking cessation); meperidine; tramadol; verapamil; cold or allergy medicine that contains an antihistamine (Benadryl and others); medicine to treat Parkinson's disease; medicine to treat excess stomach acid, stomach ulcer, motion sickness, or irritable bowel syndrome; medicine to treat overactive bladder; or bronchodilator asthma medication. This list is not complete. Other drugs may affect cyclobenzaprine, including prescription and rwqu-efk-ubwltka medicines, vitamins, and herbal products. Not all possible drug interactions are listed here. Where can I get more information? Your pharmacist can provide more information about cyclobenzaprine. Remember, keep this and all other medicines out of the reach of children, never share your medicines with others, and use this medication only for the indication prescribed. Every effort has been made to ensure that the information provided by [employer]. ('[employer]') is accurate, up-to-date, and complete, but no guarantee is made to that effect. Drug information contained herein may be time sensitive. [employer] information has been compiled for use by healthcare practitioners and consumers in the [place] and therefore [employer] does not warrant that uses outside of the [place] are appropriate, unless specifically indicated otherwise. [employer] drug information does not endorse drugs, diagnose patients or recommend therapy. [employer] drug information is an informational resource designed to assist licensed healthcare practitioners in caring for their patients and/or to serve consumers viewing this service as a supplement to, and not a substitute for, the expertise, skill, knowledge and judgment of healthcare practitioners. The absence of a warning for a given drug or drug combination in no way should be construed to indicate that the drug or drug combination is safe, effective or appropriate for any given patient. [facility] does not assume any responsibility for any aspect of healthcare administered with the aid of information [employer] provides. The information contained herein is not intended to cover all possible uses, directions, precautions, warnings, drug interactions, allergic reactions, or adverse effects. If you have questions about the drugs you are taking, check with your doctor, nurse or pharmacist. Copyright 8005-1569 [facility] [employer]. Version: 7.01. Revision Date: 05/12/2023. Education Materials Back Sprain or Strain Injury to the muscles (strain) or ligaments (sprain) around the spine can be troubling. Injury may occur after a sudden forceful twisting or bending force such as in a car accident, after a simple awkward movement, or after lifting something heavy with poor body positioning. In any case, muscle spasm is often present and adds to the pain. Thankfully, most people feel better in 1 to 2 weeks, and most of the rest in 1 to 2 months. Most people can remain active. Unless you had a forceful or traumatic physical injury such as a car accident or fall, X-rays may not be ordered for the first evaluation of a back sprain or strain. If pain continues and does not respond to medical treatment, your healthcare provider may then order X-rays and other tests. Home care The following guidelines will help you care for your injury at home: When in bed, try to find a comfortable position. A firm mattress is best. Try lying flat on your back with pillows under your knees. You can also try lying on your side with your knees bent up toward your chest and a pillow between your knees. Don't sit for long periods. Try not to take long car rides or take other trips that have you sitting for a long time. This puts more stress on the lower back than standing or walking. During the first 24 to 72 hours after an injury or flare-up, apply an ice pack to the painful area for 20 minutes. Then remove it for 20 minutes. Do this for 60 to 90 minutes, or several times a day. This will reduce swelling and pain. Be sure to wrap the ice pack in a thin towel or plastic to protect your skin. You can start with ice, then switch to heat. Heat from a hot shower, hot bath, or heating pad reduces pain and works well for muscle spasms. Put heat on the painful area for 20 minutes, then remove for 20 minutes. Do this for 60 to 90 minutes, or several times a day. Do not use a heating pad while sleeping. It can burn the skin. You can alternate the ice and heat. Talk with your healthcare provider to find out the best treatment or therapy for your back pain. Therapeutic massage will help relax the back muscles without stretching them. Be aware of safe lifting methods. Do not lift anything over 15 pounds until all of the pain is gone. Medicines Talk to your healthcare provider before using medicines, especially if you have other health problems or are taking other medicines. You may use acetaminophen or ibuprofen to control pain, unless another pain medicine was prescribed. If you have chronic conditions like diabetes, liver or kidney disease, stomach ulcers, or gastrointestinal bleeding, or are taking blood-thinner medicines, talk with your doctor before taking any medicines. Be careful if you are given prescription medicines, narcotics, or medicine for muscle spasm. They can cause drowsiness, and affect your coordination, reflexes, and judgment. Do not drive or operate heavy machinery when taking these types of medicines. Only take pain medicine as prescribed by your healthcare provider. Follow-up care Follow up with your healthcare provider, or as advised. You may need physical therapy or more tests if your symptoms get worse. If you had X-rays your healthcare provider may be checking for any broken bones, breaks, or fractures. Bruises and sprains can sometimes hurt as much as a fracture. These injuries can take time to heal completely. If your symptoms don t improve or they get worse, talk with your healthcare provider. You may need a repeat X-ray or other tests. Call 911 Call 911 if any of the following occur: Trouble breathing Confused Very drowsy or trouble awakening Fainting or loss of consciousness Rapid or very slow heart rate Loss of bowel or bladder control When to seek medical advice Call your healthcare provider right away if any of the following occur: Pain gets worse or spreads to your arms or legs Weakness or numbness in one or both arms or legs Numbness in the groin or genital area [id number] [facility]. [address] [place] [id number]. All rights reserved. This information is not intended as a substitute for professional medical care. Always follow your healthcare professional's instructions. Additional Information VACCINATE! IT SAVES LIVES! Members of the community who have not yet received the COVID-19 vaccine and would like to receive it can visit one of [facility] vaccine clinics. There are many vaccine clinic locations within the [facility]. For locations and available times, please visit [email or web address] It is important to note that some COVID mobile vaccine clinics are held outdoors and may be canceled in rainy or stormy conditions. To learn more about pediatric vaccinations (ages 5-11), we invite you to visit the [facility] webpage. https://www.[employer]Free [employer]ss.org/pag es/7001-Bawmf-Muhkiuflrtk-Frequent lz-Fpfgx-Fczqjatqn.html To learn more about the COVID-19 vaccine, we invite you to visit the CDC website for a list of frequently asked questions. https://www.cdc.gov/coronavirus/20 19-ncov/vaccines/faq.html [facility] Patient Portal Access Instructions: Stay connected with your healthcare team and access your personal medical information anytime with the [facility] Patient Portal. If you would like a full copy of your medical records please contact the [facility] Medical Records Department Monday through Monday between 8a.m. and 4:30p.m. Please follow the directions below to access the portal: 1.Access the email account you provided upon registration to the [facility].2.Look for an invitation email from [facility].3.Open the email and access the invitation link: Accept Invitation to [facility].Fill in the required penn to create your account. Sign into [email or web address] with your username and password that you created in the above steps to stay up to date. You can then view a summary of results, a summary of your visits, and the ability to download your summaries to your computer or send the information securely to a physician. Remember that your healthcare information is confidential, so carefully consider who you will allow to register on the [facility] Patient Portal for access to your information. You can also access the [facility] Patient Portal on the [employer] nate. Simply click on Health Records under Health Data and then click on the [employer] logo. HOW TO SAFELY DISPOSE OF PRESCRIPTION MEDICATIONS Please use one of the following methods to safely dispose of your unused medications. 1.Use a drug disposal kit: the drug disposal pouch allows you to safely discard your old and unused drugs. Ask your nurse to give you one when you are discharged.2.Visit a local take-back location: Many local pharmacies and police departments have programs that collect old and unwanted prescription drugs. Call your local pharmacy or go to http://[employer].Fundgrazing/6E8Wm6b to find one close to you.3.Make use of household items: Use cat litter or old coffee grounds to dispose medications if other options are not available. Mix your drugs with these household products, seal them in an airtight container and throw it into the garbage. Call [facility]: [phone] to be sure your drugs can be disposed of in this way. Some medicines may require a different approach.4.Never flush your medications down the toilet. IF YOU HAVE BEEN PRESCRIBED AN OPIOIDS FOR PAIN If you have been prescribed an opioid (such as hydrocodone, oxycodone or morphine), it is critical to understand the possible side effects and risks of opioid pain medications. Even when taken as directed, opioids can have several side effects including: Tolerance, meaning you might need to take more of a medication for the same pain relief. Nausea, vomiting and/or constipation. Sleepiness, dizziness, dry mouth, confusion, depression or itching. Physical dependence, meaning you have withdrawal symptoms when a medication is stopped ? this can develop within a few days. KNOW YOUR RESPONSIBILITIES It is important to know exactly how much and how often to take the opioid pain medications you are prescribed. Never take opioids in higher amounts or more often than prescribed. Do not combine opioids with alcohol or other drugs that cause drowsiness, such as benzodiazepines, also known as benzos, including diazepam and alprazolam, muscle relaxants or sleep aids. Never sell or share prescription opioids. This is illegal. Store opioids in a secure place and out of reach of others (including children, family, friends and visitors). The last page(s) of this document has been signed and retained as a CHART COPY Signatures Patient Education Materials Back Sprain/Strain Medication Leaflets lidocaine topical, methylprednisolone (oral), cyclobenzaprine My discharge plan and instructions have been reviewed and explained to me and I,ELISA SELLERS understand my current condition and have read and understand these discharge instructions. I have received a written copy of the plan/instructions. If I have questions, I am aware that I should contact my doctor. Patient/Transition Assistant Signature: Date/Time: Relationship to Patient: ___ Witness Name/Signature: Date/Time: [facility] 02-29-2024 Note HNO ID: [id number] Author: TALIB AGUERO MD Service: ? Author Type: Physician Type: Progress Notes Filed: 03/01/2024 16:28 Note Text: Encounter Diagnosis ICD-10-CM 1. Pseudophakia Z96.1 fluorescein-benoxinate 0.3-0.4 % 1 Drop (FLURESS) proparacaine 0.5 % 1 Drop (ALCAINE) PHENYLephrine 2.5 % 1 Drop (AK-DILATE, PILO-SYNEPHRINE) tropicamide 1 % 1 Drop (MYDRIACYL) 2. Early dry stage nonexudative age-related macular degeneration of both eyes H35.3131 3. 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 Zamora, follows yearly Retinal detachment precautions reviewed. Call [facility] if new s/s. Dry Eye, OU Patient's current drop includes: - Ivizia BID OU and Avenova BID OU symptomatic PCO OD - offer option of yag od rba discussed, patient elects proceed Retinal detachment precautions reviewed. Call [facility] if new s/s. NEXT VISIT ORDERS VISION OU MRX OU IOP OU DILATED FUNDUS EXAM OU mac oct ou note to Yogesh Carson I have confirmed and edited as necessary the relevant ophthalmic history, ROS, and the neuro exam findings as obtained by others. I have seen and examined this patient. I have discussed the case and the management of this patient's care with the Resident/Fellow, if applicable. I also have reviewed and agree with the assessment and plan as stated above and agree with all of its relevant components. Talib Aguero MD [facility] 02-29-2024 History of Present illness Narrative Encounter Diagnosis ICD-10-CM 1. Pseudophakia Z96.1 fluorescein-benoxinate 0.3-0.4 % 1 Drop (FLURESS) proparacaine 0.5 % 1 Drop (ALCAINE) PHENYLephrine 2.5 % 1 Drop (AK-DILATE, PILO-SYNEPHRINE) tropicamide 1 % 1 Drop (MYDRIACYL) 2. Early dry stage nonexudative age-related macular degeneration of both eyes H35.3131 3. 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 Zamora, follows yearly Retinal detachment precautions reviewed. Call [facility] if new s/s. Dry Eye, OU Patient's current drop includes: - Ivizia BID OU and Avenova BID OU symptomatic PCO OD - offer option of yag od rba discussed, patient elects proceed Retinal detachment precautions reviewed. Call [facility] if new s/s. NEXT VISIT ORDERS VISION OU MRX OU IOP OU DILATED FUNDUS EXAM OU mac oct ou note to Yogesh Carson I have confirmed and edited as necessary the relevant ophthalmic history, ROS, and the neuro exam findings as obtained by others. I have seen and examined this patient. I have discussed the case and the management of this patient's care with the Resident/Fellow, if applicable. I also have reviewed and agree with the assessment and plan as stated above and agree with all of its relevant components. Talib Aguero MD documented in this encounter [facility] 06-20-2023 History of Present illness Narrative This is a 75 year old diagnosed upon referral with age related macular degeneration. Visual acuity is 20/20 RE, 20/20 LE. Intraocular pressures are 15/17. Anterior segment exam is notable for ccentered PCLs. Posterior segment exam is significant for a nevus RE 1DD without pigment or SRF. OCT macula shows normal foveal contour, with fine drusen. Obtain photo today RE. I have confirmed and edited as necessary the relevant ophthalmic history, ROS, and the neuro exam findings as obtained by others. I have seen and examined this patient. I have discussed the case and the management of this patient's care with the Resident/Fellow, if applicable. I also have reviewed and agree with the assessment and plan as stated above and agree with all of its relevant components. documented in this encounter [facility] 02-08-2023 History of Past i llness Narrative Problem Noted Date Diagnosed Date Resolved Date Exudative age-related macula r degeneration, bilateral, with active choroidal neovascularization 02/08/2023 02/08/2023 documented as of this encounter (statuses as of 06/20/2023) [facility]05-02-2023 History of Present illness Narrative* Talib Aguero MD - 02/07/2023 10:15 AM EDT Encounter Diagnosis ICD-10-CM 1. Pseudophakia Z96.1 2. PCO (posterior capsular opacification), bilateral H26.493 3. Retina hole, bilateral H33.323 4. Squamous blepharitis of upper and lower eyelids of both eyes H01.02A H01.02B (Z96.1) Pseudophakia (primary encounter diagnosis) Comment: S/P PC IOL OS: 01/10/22; S/P PC IOL OD: 01/24/22 - Patient is CL wearer for near vision in the left eye, still often wears reading glasses over -Otherwise stable 1+ PCO OU overall symptoms mild, discussed option of YAG if worsening glare/va Hx retinal hole ou Comment: - Patient is currently under the care of Dr. Zamora, follows yearly Retinal detachment precautions reviewed. Call [facility] if new s/s. Dry Eye, OU Patient's current drop includes: - Ivizia BID OU and Avenova BID OU By signing my name below, I, China Ogden, attest that this documentation has been prepared under the direction and in the presence of Dr. Aguero Electronically signed, China Ogden, Scribe February 07, 2023 1:22 PM I agree with the Chief Complaint, ROS, and Past Histories independently gathered by the clinical administrative support assoc and the remaining scribed note accurately describes my personal service to the patient. NEXT VISIT ORDERS 1 YEAR POST-OP VISION OU MRX OU IOP OU DILATED FUNDUS EXAM OU 1+ PCO bilateral with striation of the posterior capsule - Patient is managing at this time. Will continue to monitor. Cleaned the lashes of both eyes under the slit-lamp without complication. Eyelid hygiene or the manual cleaning of the oily secretions off of the eyelid margins is an important part in the treatment of this condition. Advised the patient to continue current treatment. chronic blepharitis, has self-treated for demodex with uncertain benefit extensive collarettes b/l today - removed at with jewelers forceps discussed if symptomatic improvement may be able to have periodic cleaning of lashes as needed withme or locally I have confirmed and edited as necessary the relevant ophthalmic history, ROS, and the neuro exam findings as obtained by others. I have seen and examined this patient. I have discussed the case and the management of this patient's care with the Resident/Fellow, if applicable. I also have reviewed and agree with the assessment and plan as stated above and agree with all of its relevant components. Talib Aguero MD note to yogesh carson [facility] Discharge instructions Patient Education 07/02/2022 12:05:11 Back Spasm, No Trauma Back Spasm (No Trauma) Spasm of the back muscles can occur after a sudden forceful twisting or bending such as in a car accident. A spasm can also happen after a simple awkward movement, or after lifting something heavy with poor body positioning. In any case, muscle spasm adds to the pain. Sleeping in an awkward position or on a poor quality mattress can also cause this. Some people respond to emotional stress by tensing the muscles of their back. Pain that continues may need further assessment or other types of treatment such as physical therapy. You don't always need X-rays for the first assessment of back pain, unless you had a physical injury such as from a car accident or fall. If your pain continues and doesn't respond to medical treatment, X-rays and other tests may then be done. Home care As soon as possible, start sitting or walking again. This will help prevent problems from a long bed rest. These problems include muscle weakness, worsening back stiffness and pain, and blood clots in the legs. When in bed, try to find a position of comfort. A firm mattress is best. Try lying flat on your back with pillows under your knees. You can also try lying on your side with your knees bent up toward your chest and a pillow between your knees. Don't sit for long periods. Also limit car rides and travel. This puts more stress on the lower back than standing or walking. During the first 24 to 72 hours after an injury or flare-up, put an ice pack on the painful area for 20 minutes, then remove it for 20 minutes. Do this over a period of 60 to 90 minutes, or several times a day. This will reduce swelling and pain. Always wrap ice packs in a thin towel. You can start with ice, then switch to heat. Heat from a hot shower, hot bath, or heating pad reduces pain and works well for muscle spasms. Put heat on the painful area for 20 minutes, then remove it for 20 minutes. Do this over a period of 60 to 90 minutes, or several times a day. Don't sleep on a heating pad. It can burn or damage skin. Alternate using ice and heat. Be aware of safe lifting methods. don't lift anything over 15 pounds until all the pain is gone. Gentle stretching will help your back heal faster. Do this simple routine 2 to 3 times a day until your back is feeling better. Lie on your back with your knees bent and both feet on the ground. Slowly raise your left knee to your chest as you flatten your lower back against the floor. Hold for 20 to 30 seconds. Relax and repeat the exercise with your right knee. Do 2 to 3 of these exercises for each leg. Repeat, hugging both knees to your chest at the same time. Don't bounce, but use a gentle pull. Medicines Talk with your doctor before using medicine, especially if you have other medical problems or are taking other medicines. You may use eoqm-tjv-djljyfo medicines such as acetaminophen, ibuprofen, or naprosyn to control pain, unless your healthcare provider prescribed another pain medicine. Talk with your healthcare provider if you have a chronic condition such as diabetes, liver or kidney disease, stomach ulcer, or digestive bleeding, or are taking blood thinners. Be careful if you are given prescription pain medicine, opioids, or medicine for muscle spasm. Theycan cause drowsiness, and affect your coordination, reflexes, and judgment. Don't drive or operate heavy machinery when taking these medicines. Take pain medicine only as prescribed by your healthcare provider. Follow-up care Follow up with your doctor, or as advised. You may need physical therapy or more tests. If X-rays were taken, they may be reviewed by a radiologist. You will be told of any new findings that may affect your care. Call Call if any of these occur: Trouble breathing Confusion Drowsiness or trouble awakening Fainting or loss of consciousness Rapid or very slow heart rate Loss of bowel or bladder control When to seek medical advice Call your healthcare provider right away if any of these occur: Pain becomes worse or spreads to your legs Weakness or numbness in one or both legs Numbness in the groin or genital area Fever of 100.4 F (38 C) or higher , or as directed by your healthcare provider Chills Burning or pain when passing urine [id number] [facility]. [address] [place] [address]. All rights reserved. This information is not intended as a substitute for professional medical care. Always follow yourhealthcare professional's instructions. Follow Up Care 07/02/2022 11:34:58 With:LAY ESCOBAR Address: [address] [place] [phone] Business (1) When:2-4 days Comments:You may use muscle relaxers as prescribed. Light stretching, follow-up with your doctor, return if any worsening or concerning symptoms. [facility] 09-24-2022 Emergency department Discharge summary Discharge Instructions Thank you for allowing [facility] to assist you with your healthcare needs. The following is importantdischarge information regarding your hospital visit. Diagnosis from Today's Visit Back spasm Pain in back What to Do Next Instructions from Your Care Team No qualifying data available. Post Acute Orders No qualifying data available. You Need to Schedule the Following Appointments Follow Up with LAY ESCOBAR When Within 2-4 days Why: You may use muscle relaxers as prescribed. Light stretching, follow-up with your doctor, return if any worsening or concerning symptoms. Where: [address] [place] [phone] Business (1) Allergies Paregoric (HIVE) Medications Please ask your primary doctor or pharmacist before taking any other medication not listed, including over the counter drugs, herbal medications, vitamins and or supplements as they may interact withyour home medications. What How Much When Instructions Last Dose New cyclobenzaprine (cyclobenzaprine 10 mg oral tablet) 1 tab(s) by mouth Three (3) times a day Duration: 7 Days Printed Prescription Unchanged amoxicillin-clavulanate (amoxicillin-clavulanate 875 mg-125 mg oral tablet) 1 tab(s) by mouth Every 12 hours Duration: 7 Days Unchanged apixaban (Eliquis 5 mg oral tablet) 1 tab(s) by mouth Two (2) times a day Unchanged biotin (Biotin 5000 mcg oral capsule) 1 cap by mouth Every day Unchanged cholecalciferol (Vitamin D3) 2,000 unit(s) by mouth Every day Unchanged diazePAM (diazePAM 10 mg oral tablet) 1 tab(s) by mouth Two (2) times a day as needed for as needed for anxiety Unchanged doxylamine (doxylamine 25 mg oral tablet) 1 tab(s) by mouth Daily at bedtime as needed for for sleep Unchanged ibuprofen (ibuprofen 200 mg oral capsule) 1 cap by mouth Once a day Unchanged lidocaine topical (Lidoderm 5% topical patch) 1 patch(es) Topical Every day Unchanged multivitamin with minerals (Emergen-C oral powder for reconstitution) Unchanged multivitamin with minerals (PreserVision) 1 tab(s) by mouth Once a day Unchanged pramipexole (pramipexole 0.25 mg oral tablet) 1 tab(s) by mouth Two (2) times a day Unchanged traMADol (traMADol 50 mg oral tablet) 1 tab(s) by mouth Every 6 hours as needed for for pain Unchanged valACYclovir (valACYclovir 1 g oral tablet) 1 tab(s) by mouth Once a day Please take this list to your next doctor s visit. Bring all medications you take, including over the counter medications, herbals and other supplements with you to your doctor s visit. Patients and families are reminded to discard old lists and to update any records with all medication providers or retail pharmacies. Medication Leaflets cyclobenzaprine (perico dinh) Rosanaix, Comfort Pac with Cyclobenzaprine, Fexmid What is the most important information I should know about cyclobenzaprine? You should not use cyclobenzaprine if you have a thyroid disorder, heart block, congestive heart failure, a heart rhythm disorder, or you have recently had a heart attack. Do not use cyclobenzaprine if you have taken an MAO inhibitor in the past 14 days, such as isocarboxazid, linezolid, phenelzine, rasagiline, selegiline, or tranylcypromine. What is cyclobenzaprine? Cyclobenzaprine is a muscle relaxant. It works by blocking nerve impulses (or pain sensations) thatare sent to your brain. Cyclobenzaprine is used together with rest and physical therapy to relieve muscle spasms caused by painful conditions such as an injury. Cyclobenzaprine may also be used for purposes not listed in this medication guide. What should I discuss with my healthcare provider before taking cyclobenzaprine? You should not use cyclobenzaprine if you are allergic to it, or if you have: a thyroid disorder; heart block, heart rhythm disorder, congestive heart failure; or if you have recently had a heart attack. Cyclobenzaprine is not approved for use by anyone younger than 15 years old. Do not use cyclobenzaprine if you have taken an MAO inhibitor in the past 14 days. A dangerous druginteraction could occur. MAO inhibitors include isocarboxazid, linezolid, phenelzine, rasagiline, selegiline, and tranylcypromine. Some medicines can interact with cyclobenzaprine and cause a serious condition called serotonin syndrome. Be sure your doctor knows if you also take stimulant medicine, opioid medicine, herbal products, or medicine for depression, mental illness, Parkinson's disease, migraine headaches, serious infections, or prevention of nausea and vomiting. Ask your doctor before making any changes in how or when you take your medications. Tell your doctor if you have ever had: liver disease; glaucoma; enlarged prostate; or problems with urination. It is not known whether this medicine will harm an unborn baby. Tell your doctor if you are or plan to become . It may not be safe to breast-feed while using this medicine. Ask your doctor about any risk. Older adults may be more sensitive to the effects of this medicine. How should I take cyclobenzaprine? Follow all directions on your prescription label and read all medication guides or instruction sheets. Your doctor may occasionally change your dose. Use the medicine exactly as directed. Cyclobenzaprine is usually taken once daily for only 2 or 3 weeks. Follow your doctor's dosing instructions very carefully. Swallow the capsule whole and do not crush, chew, break, or open it. Take the medicine at the same time each day. Call your doctor if your symptoms do not improve after 3 weeks, or if they get worse. Store at room temperature away from moisture, heat, and light. What happens if I miss a dose? Take the medicine as soon as you can, but skip the missed dose if it is almost time for your next dose. Do not take two doses at one time. What happens if I overdose? Seek emergency medical attention or call the Poison Help line at . An overdose of cyclobenzaprine can be fatal. Overdose symptoms may include severe drowsiness, vomiting, fast heartbeats, tremors, agitation, or hallucinations. What should I avoid while taking cyclobenzaprine? Avoid driving or hazardous activity until you know how this medicine will affect you. Your reactions could be impaired. Avoid drinking alcohol. Dangerous side effects could occur. What are the possible side effects of cyclobenzaprine? Get emergency medical help if you have signs of an allergic reaction: hives; difficult breathing; swelling of your face, lips, tongue, or throat. Stop using cyclobenzaprine and call your doctor at once if you have: fast or irregular heartbeats; chest pain or pressure, pain spreading to your jaw or shoulder; or sudden numbness or weakness (especially on one side of the body), slurred speech, balance problems. Seek medical attention right away if you have symptoms of serotonin syndrome, such as: agitation, hallucinations, fever, sweating, shivering, fast heart rate, muscle stiffness, twitching, loss of coordination, nausea, vomiting, or diarrhea. Serious side effects may be more likely in older adults. Common side effects may include: drowsiness, tiredness; headache, dizziness; dry mouth; or upset stomach, nausea, constipation. This is not a complete list of side effects and others may occur. Call your doctor for medical advice about side effects. You may report side effects to FDA at 5-170-HYS-4428. What other drugs will affect cyclobenzaprine? Using cyclobenzaprine with other drugs that make you drowsy can worsen this effect. Ask your doctorbefore using opioid medication, a sleeping pill, a muscle relaxer, or medicine for anxiety or seizures. Tell your doctor about all your other medicines, especially: bupropion (Zyban, for smoking cessation); meperidine; tramadol; verapamil; cold or allergy medicine that contains an antihistamine (Benadryl and others); medicine to treat Parkinson's disease; medicine to treat excess stomach acid, stomach ulcer, motion sickness, or irritable bowel syndrome; medicine to treat overactive bladder; or bronchodilator asthma medication. This list is not complete. Other drugs may affect cyclobenzaprine, including prescription and byph-eao-fceppni medicines, vitamins, and herbal products. Not all possible drug interactions are listed here. Where can I get more information? Your pharmacist can provide more information about cyclobenzaprine. Remember, keep this and all other medicines out of the reach of children, never share your medicines with others, and use this medication only for the indication prescribed. Every effort has been made to ensure that the information provided by [employer]. ('[employer]') is accurate, up-to-date, and complete, but no guarantee is made to that effect. Drug information contained herein may be time sensitive. [employer] information has been compiled for use by healthcare practitioners and consumers in the [place] and therefore [employer] does not warrant that uses outside of the [place] are appropriate, unless specifically indicated otherwise. [employer] drug information does not endorse drugs, diagnose patients or recommend therapy. [employer] drug information isan informational resource designed to assist licensed healthcare practitioners in caring for their p atients and/or to serve consumers viewing this service as a supplement to, and not a substitute for, the expertise, skill, knowledge and judgment of healthcare practitioners. The absence of a warningfor a given drug or drug combination in no way should be construed to indicate that the drug or drug combination is safe, effective or appropriate for any given patient. [employer] does not assume any responsibility for any aspect of healthcare administered with the aid of information [employer] provides. The information contained herein is not intended to cover all possible uses, directions, precautions, warnings, drug interactions, allergic reactions, or adverse effects. If you have questions about the drugs you are taking, check with your doctor, nurse or pharmacist. Copyright 6125-0105 [employer]. Version: 5.01. Revision Date: 07/04/2018. Education Materials Back Spasm (No Trauma) Spasm of the back muscles can occur after a sudden forceful twisting or bending such as in a car accident. A spasm can also happen after a simple awkward movement, or after lifting something heavy with poor body positioning. In any case, muscle spasm adds to the pain. Sleeping in an awkward position or on a poor quality mattress can also cause this. Some people respond to emotional stress by tensing the muscles of their back. Pain that continues may need further assessment or other types of treatment such as physical therapy. You don't always need X-rays for the first assessment of back pain, unless you had a physical injury such as from a car accident or fall. If your pain continues and doesn't respond to medical treatment, X-rays and other tests may then be done. Home care As soon as possible, start sitting or walking again. This will help prevent problems from a long bed rest. These problems include muscle weakness, worsening back stiffness and pain, and blood clots in the legs. When in bed, try to find a position of comfort. A firm mattress is best. Try lying flat on your back with pillows under your knees. You can also try lying on your side with your knees bent up toward your chest and a pillow between your knees. Don't sit for long periods. Also limit car rides and travel. This puts more stress on the lower back than standing or walking. During the first 24 to 72 hours after an injury or flare-up, put an ice pack on the painful area for 20 minutes, then remove it for 20 minutes. Do this over a period of 60 to 90 minutes, or several times a day. This will reduce swelling and pain. Always wrap ice packs in a thin towel. You can start with ice, then switch to heat. Heat from a hot shower, hot bath, or heating pad reduces pain and works well for muscle spasms. Put heat on the painful area for 20 minutes, then remove it for 20 minutes. Do this over a period of 60 to 90 minutes, or several times a day. Don't sleep on a heating pad. It can burn or damage skin. Alternate using ice and heat. Be aware of safe lifting methods. don't lift anything over 15 pounds until all the pain is gone. Gentle stretching will help your back heal faster. Do this simple routine 2 to 3 times a day until your back is feeling better. Lie on your back with your knees bent and both feet on the ground. Slowly raise your left knee to your chest as you flatten your lower back against the floor. Hold for 20 to 30 seconds. Relax and repeat the exercise with your right knee. Do 2 to 3 of these exercises for each leg. Repeat, hugging both knees to your chest at the same time. Don't bounce, but use a gentle pull. Medicines Talk with your doctor before using medicine, especially if you have other medical problems or are taking other medicines. You may use ouny-kcg-bijzgwh medicines such as acetaminophen, ibuprofen, or naprosyn to control pain, unless your healthcare provider prescribed another pain medicine. Talk with your healthcare provider if you have a chronic condition such as diabetes, liver or kidney disease, stomach ulcer, or digestive bleeding, or are taking blood thinners. Be careful if you are given prescription pain medicine, opioids, or medicine for muscle spasm. Theycan cause drowsiness, and affect your coordination, reflexes, and judgment. Don't drive or operate heavy machinery when taking these medicines. Take pain medicine only as prescribed by your healthcare provider. Follow-up care Follow up with your doctor, or as advised. You may need physical therapy or more tests. If X-rays were taken, they may be reviewed by a radiologist. You will be told of any new findings that may affect your care. Call Call if any of these occur: Trouble breathing Confusion Drowsiness or trouble awakening Fainting or loss of consciousness Rapid or very slow heart rate Loss of bowel or bladder control When to seek medical advice Call your healthcare provider right away if any of these occur: Pain becomes worse or spreads to your legs Weakness or numbness in one or both legs Numbness in the groin or genital area Fever of 100.4 F (38 C) or higher , or as directed by your healthcare provider Chills Burning or pain when passing urine [phone] [facility]. [address] [place] [address], [place] [address]. All rights reserved. This information is not intended as a substitute for professional medical care. Always follow yourhealthcare professional's instructions. Additional Information VACCINATE! IT SAVES LIVES! Members of the community who have not yet received the COVID-19 vaccine and would like to receive it can visit one of [facility] vaccine clinics. There are many vaccine clinic locations within the [facility]. For locations and available times, please visit [email or web address]. It is important to note that some COVID mobile vaccine clinics are held outdoors and may be canceled in rainy orstormy conditions. To learn more about pediatric vaccinations (ages 5-11), we invite you to visit the [facility] webpage. [email or web address] learn more about the COVID-19 vaccine, we invite you to visit the [facility] website for a list of frequently asked questions. [email or web address] [facility] Patient Portal Access Instructions: Stay connected with your healthcare team and access your personal medical information anytime with the [facility] Patient Portal. If you would like a full copy of your medical records please contact the [facility] Medical Records Department Monday through Monday between 8a.m. and 4:30p.m. Please follow the directions below to access the portal: 1.Access the email account you provided upon registration to the hospital.2.Look for an invitation email from [facility].3.Open the email and access the invitation link: Accept Invitation to [facility]4.Fill in the required penn to create your account. Sign into [email or web address] with your username and password that you created in the above steps to stay up to date. You can then view a summary of results, a summary of your visits, and the ability to download your summaries to your computer or send the information securely to a physician. Remember that your healthcare information is confidential, so carefully consider who you will allow to register on the [facility] Patient Portal for access to your information. You can also access the [facility] Patient Portal on the [employer]. Simply click on Health Records under [employer] and then click on the [facility] logo. HOW TO SAFELY DISPOSE OF PRESCRIPTION MEDICATIONS Please use one of the following methods to safely dispose of your unused medications. 1.Use a drug disposal kit: the drug disposal pouch allows you to safely discard your old and unuseddrugs. Ask your nurse to give you one when you are discharged.2.Visit a local take-back location: Many local pharmacies and police departments have programs that collect old and unwanted prescriptiondrugs. Call your local pharmacy or go to http://[employer].Fundgrazing/2L3Tn1g to find one close to you.3.Make use of household items: Use cat litter or old coffee grounds to dispose medications if other options arenot available. Mix your drugs with these household products, seal them in an airtight container andthrow it into the garbage. Call [facility]: [phone] to be sure your drugs can be disposed of in this way. Some medicines may require a different approach.4.Never flush your medications down the toilet. IF YOU HAVE BEEN PRESCRIBED AN OPIOIDS FOR PAIN If you have been prescribed an opioid (such as hydrocodone, oxycodone or morphine), it is critical to understand the possible side effects and risks of opioid pain medications. Even when taken as directed, opioids can have several side effects including: Tolerance, meaning you might need to take more of a medication for the same pain relief. Nausea, vomiting and/or constipation. Sleepiness, dizziness, dry mouth, confusion, depression or itching. Physical dependence, meaning you have withdrawal symptoms when a medication is stopped ? this can develop within a few days. KNOW YOUR RESPONSIBILITIES It is important to know exactly how much and how often to take the opioid pain medications you are prescribed. Never take opioids in higher amounts or more often than prescribed. Do not combine opioids with alcohol or other drugs that cause drowsiness, such as benzodiazepines, also known as benzos,including diazepam and alprazolam, muscle relaxants or sleep aids. Never sell or share prescriptionopioids. This is illegal. Store opioids in a secure place and out of reach of others (including children, family, friends and visitors). The last page(s) of this document has been signed and retained as a CHART COPY Signatures Patient Education Materials Back Spasm, No Trauma Medication Leaflets cyclobenzaprine My discharge plan and instructions have been reviewed and explained to me and IVERITO CAROLINE L understand my current condition and have read and understand these discharge instructions. I have received a written copy of the plan/instructions. If I have questions, I am aware that I should contact my doctor. 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 [facility] Progress note No data available for this section [facility] Advance Directives Documents on File Type Date Recorded Patient Transition Assistant Expl anation Advance Directive(s) 01/04/2022 9:04 AM Advance Directive(s) 01/04/2022 9:14 AM Medications Administered Section Active Administered Medications - up to 3 most recent administrations Medication Order MAR Action Action Date Dose Rate Site fluorescein-benoxinate 0.25-0.4 % 1 Drop (FLURESS) 1 Drop, BOTH EYES, DIRECTED, Starting on Evie 03/17/22 at 1100, Until Evie 03/17/22 at 2259, Administer for applanation tonometry. In the event of a Fluress shortage, administer Cecily-Fluor 1 drop into both eyes as directed for applanation tonometry Given 03/17/2022 10:47 AM EDT 1 Drop Active Administered Medications - up to 3 most recent administrations Medication Order MAR Action Action Date Dose Rate Site proparacaine 0.5 % 1 Drop (ALCAINE) 1 Drop, BOTH EYES, DIRECTED, Starting on 06/20/23 at 1100, Until 06/20/23 at 2259, Administer for pneumo tonometry, tonopen tonometry, or pachymetry. In the event of a proparacaine shortage, administer 1 drop of tetracaine 0.5% ophthalmic drops into both eyes as directed for pneumo tonometry, tonopen tonometry, or pachymetry, [facility] MED ORDERS Given 06/20/2023 11:00 AM EDT 1 Drop Summary Purpose Family History No Family History Records Found Additional Source Comments Source Comments (unrecognize d section and content) In the event this informatio n is protected by the Federal Confidentiality of Alcohol and Drug Abuse Patient Records regulations: The Federal rules restrict any use of the information to criminally investigate or prosecute any alcohol or drug abuse patient.[facility] CenterIn the event this information is protected by the Federal Confidentiality of Alcohol and Drug Abuse Patient Records regulations: The Federal rules restrict any use of the information to criminally investigate or prosecute any alcohol or drug abuse patient.[facility] CenterIn the event this information is protected by the Federal Confidentiality of Alcohol and Drug Abuse Patient Records regulations: The Federal rules restrict any use of the information to criminally investigate or prosecute any alcohol or drug abuse patient.[facility] CenterIn the event this information is protected by the Federal Confidentiality of Alcohol and Drug Abuse Patient Records regulations: The Federal rules restrict any use of the information to criminally investigate or prosecute any alcohol or drug abuse patient.[facility] CenterIn the event this information is protected by the Federal Confidentiality of Alcohol and Drug Abuse Patient Records regulations: The Federal rules restrict any use of the information to criminally investigate or prosecute any alcohol or drug abuse patient.[facility] CenterIn the event this information is protected by the Federal Confidentiality of Alcohol and Drug Abuse Patient Records regulations: The Federal rules restrict any use of the information to criminally investigate or prosecute any alcohol or drug abuse patient.[facility] CenterIn the event this information is protected by the Federal Confidentiality of Alcohol and Drug Abuse Patient Records regulations: The Federal rules restrict any use of the information to criminally investigate or prosecute any alcohol or drug abuse patient.[facility] CenterIn the event this information is protected by the Federal Confidentiality of Alcohol and Drug Abuse Patient Records regulations: The Federal rules restrict any use of the information to criminally investigate or prosecute any alcohol or drug abuse patient.[facility] CenterIn the event this information is protected by the Federal Confidentiality of Alcohol and Drug Abuse Patient Records regulations: The Federal rules restrict any use of the information to criminally investigate or prosecute any alcohol or drug abuse patient.[facility] CenterIn the event this information is protected by the Federal Confidentiality of Alcohol and Drug Abuse Patient Records regulations: The Federal rules restrict any use of the information to criminally investigate or prosecute any alcohol or drug abuse patient.[facility] CenterIn the event this information is protected by the Federal Confidentiality of Alcohol and Drug Abuse Patient Records regulations: The Federal rules restrict any use of the information to criminally investigate or prosecute any alcohol or drug abuse patient.[facility] CenterIn the event this information is protected by the Federal Confidentiality of Alcohol and Drug Abuse Patient Records regulations: The Federal rules restrict any use of the information to criminally investigate or prosecute any alcohol or drug abuse patient.[facility] CenterIn the event this information is protected by the Federal Confidentiality of Alcohol and Drug Abuse Patient Records regulations: The Federal rules restrict any use of the information to criminally investigate or prosecute any alcohol or drug abuse patient.[facility] CenterIn the event this information is protected by the Federal Confidentiality of Alcohol and Drug Abuse Patient Records regulations: The Federal rules restrict any use of the information to criminally investigate or prosecute any alcohol or drug abuse patient.[facility] Reason for Visit (unrecogniz ed section and content) Reason Comments Pre-Op Exam Reason Comments Outcomes Reason Comments Post-op (Ophthalmology) Right Eye Reason Comments Patient Update Reason Comments Post-op (Ophthalmology) Left Eye PHACOEM ULSIFICATION CATARACT IMPLANT INTRAOCULAR LENS W/O ENDOSCOPIC CYCLOPHOTOCOAGULATION Reason Comments Post-op (Ophthalmology) Left Eye S/p PCI OL OS x 01/24/2022 Reason Comments Pseudophakia Follow Up Reason Comments Exudative Macular Degeneration Follow Up Reason Comments Pseudophakia Follow Up Posterior Capsule Opacification Follow U p Care Teams (unrecognized sec tion and content) Singeing Torch Operator Relationship Specialty Start Date End Date Madi Holland PCP - General Family Practice 01/07/14 Singeing Torch Operator Relationship Specialty Start Date End Date Madi Holland PCP - General Family Practice 01/07/14 Singeing Torch Operator Relationship Specialty Start Date End Date Madi Holland PCP - General Family Practice 01/07/14 01/03/22 Lay Escobar, DO [address] [place] [address] PCP - General Family Practice 01/04/22 Yogesh Carson [address] [place] [address] Optometry 01/04/22 Singeing Torch Operator Relationship Specialty Start Date End Date Lay Escobar, DO [address] [place] [address] PCP - General Family Practice 01/04/22 Rosalinexin, Yogesh [address] [place] [address] Optometry 01/04/22 Singeing Torch Operator Relationship Specialty Start Date End Date Lay Escobar, DO [address] [place] [address] PCP - General Family Practice 01/04/22 Oney, Yogesh [address] [place] [address] Optometry 01/04/22 Singeing Torch Operator Relationship Specialty Start Date End Date Lay Escobar, DO [address] [place] [address] PCP - General Family Practice 01/04/22 Rosalinexin Yogesh [address] [place] [address] Optometry 01/04/22 Singeing Torch Operator Relationship Specialty Start Date End Date Lay Escobar, DO [address] [place] [address] PCP - General Family Practice 01/04/22 Oney, Yogesh [address] [place] [address] Optometry 01/04/22 Singeing Torch Operator Relationship Specialty Start Date End Date Lay Escobar, DO [address] [place] [address] PCP - General Family Practice 01/04/22 Yogesh Carson [address] [place] [id number] Optometry 01/04/22 Singeing Torch Operator Relationship Specialty Start Date End Date Lay Escobar DO [address] [place] [address] PCP - General Family Medicine 01/04/22 Yogesh Carson [address] [place] [id number] Optometry 01/04/22 Singeing Torch Operator Relationship Specialty Start Date End Date Lay Escobar DO [address] [place] [address] PCP - General Family Medicine 01/04/22 Yogesh Carson [address] [place] [id number] Optometry 01/04/22 Singeing Torch Operator Relationship Specialty Start Date End Date Lay Escobar DO [address] [place] [address] PCP - General Family Medicine 01/04/22 Yogesh Carson [address] [place] [id number] Optometry 01/04/22 Singeing Torch Operator Relationship Specialty Start Date End Date Madi Holland PCP - General Family Medicine 01/07/14 01/03/22 Singeing Torch Operator Relationship Specialty Start Date End Date Lay Escobar DO [address] [place] [address] PCP - General Family Medicine 01/04/22 Yogesh Carson [address] [place] [address] Optometry 01/04/22 Care Team (unrecognized sect ion and content) Care Team Personnel Name: Arsh Mullins PT Position: P3 Scheduling - Crushing Mill Operator Advanced Member Role: Other Name: LAY ESCOBAR DO Position: P4 Physician - Primary Care Med Service: Active Provider Member Role: Primary Care Physician Address: Address: [address] [place] [address]- Care Team Related Persons Name: LORENZO SEE Name: YAO RESENDIZ Address: [address] [place] [address] Care Team Personnel Name: Arsh Mullins PT Position: P3 Scheduling - Crushing Mill Operator Advanced Member Role: Other Name: LAY ESCOBAR DO Position: P4 Physician - Primary Care Member Role: Primary Care Physician Address: Address: [address] [place] [id number]- Care Team Related Persons Name: LORENZO SEE Name: YAO RESENDIZ Address: [address] [place] [phone] INFORMATION SOURCE (unrecogn ized section and content) DATE CREATED AUTHOR 06/15/2024 [facility] DATE CREATED AUTHOR AUTHOR'S ORGANIZ ATION 07/14/2024 [facility] DATE CREATED AUTHOR AUTHOR'S ORGANIZ ATION 07/20/2024 [facility] FOR RECORDS PERTAINING TO PATIENTS WHO ARE OR HAVE BEEN ENROLLED IN A CHEMICAL DEPENDENCY/SUBSTANCEABUSE PROGRAM, SOME INFORMATION MAY BE OMITTED. This clinical summary was aggregated from multiple sources. Caution should be exercised in using it in the provision of clinical care. This summary normalizes information from multiple sources, and as a consequence, information in this document may materially change the coding, format and clinical context of patient data. In addition, data may be omitted in some cases. CLINICAL DECISIONS SHOULD BE BASED ON THE PRIMARY CLINICAL RECORDS. [facility] [employer] [facility]. provides no warranty or guarantee of the accuracy or completeness of information in this document.
== END | disposition home or self-care (01) ==
LOC: CVS 09:40
PROVIDERS: Referring Provider Internal Medicine Cardiovascular Disease; Visit Provider Internal Medicine Cardiovascular Disease
DX: I48.92 Unspecified atrial flutter (principal); I70.0 Atherosclerosis of aorta
CPT/HCPCS: 93306

== ENCOUNTER → 2025-04-22 | Outpatient (CLI) | payer MEDICARE, OTHER, SELFPAY ==
--- OUTSIDE RECORDS SUMMARY | 2025-04-22 07:10 | XMS RPT_ITS | CCD ---
Author Organization [facility] Care Team Providers Care Benefits Officer Name Role Phone DR LAY PARKER DO Primary Care Physician [phone] Susanna PT, Tiffanie Unavailable Unavailable Madi Holland Primary Care Provider Madi Holland Primary Care Provider Lay Parker DO Primary Care Provider OneYogesh lauren Unavailable Dr. Lay Parker Primary Care Provider 1(3 30) Dr. Lay Parker Referring Provider Dr. Krzysztof Salomon Attending Provider Dr. Lay Parker Primary Care Provider 1(3 30) Dr. Krzysztof Salomon Attending Provider DR LAY PARKER DO Primary Care Physician [phone] DR LAY PARKER DO Primary Care Physician [phone] Lay Parker DO Primary Care Provider Jamal Carsonlas Unavailable Lay Parker DO Primary Care Provider Dr. Lay Parker Primary Care Provider [phone] Dr. Carlene Chang Attending Provider Roof SHANK PAPERER, SHANK PAPERERMayra Menon Referring Provider [phone] Lay Parker DO Primary Care Provider BRYAN ECHEVARRIA DO Attending Unavailable LAY PARKER Primary Care Unavailable LAY PARKER Primary Care Unavailable MEGHANN-BACHERT, GLENDY Attending Unavaila ble MEGHANN-BACHERT, GLENDY Attending Unavaila ble KEITH, LAY Primary Care Unavailable MEGHANN-BACHERT, GLENDY Admitting Unavaila ble MEGHANN-BACHERT, GLENDY Attending Unavaila ble KEITH, LAY Primary Care Unavailable SHARLENE GOODMAN, DR ADENIKE Sethi Attending Unavailabl e KEITH, LAY Primary Care Unavailable KEITH, LAY Primary Care Unavailable KEITH, LAY Attending Unavailable KEITH, LAY Primary Care Unavailable KEITH, LAY Attending Unavailable KEITH, LAY Primary Care Unavailable KEITH, LAY Attending Unavailable Madi Holland Primary Care Provider LAY PARKER Primary Care Unavailable JACOBO ZAMORA Attending Unavailable TALIB AGUERO Attending Unavailable LAY PARKER Primary Care Unavailable Keith DO, Lay Alonso Primary Care Provider [phone] Keith DO, Dr. Lay Alonso Primary Care Provider Keith DO, Dr. Lay Alonso Referring Provider Glendy Jackson Attending Provider KEITH DO, DR CHUN Primary Care Unavailable GILMAR JC PA-C Attending Unavailable KEITH DO, DR CHUN Attending Unavailable KEITH DO, DR CHUN Primary Care Unavailable EMMA CHENG Attending Unavailable KEITH DO, DR CHUN Primary Care Unavailable KEITH DO, DR CHUN Primary Care Unavailable WENDIE ROQUE Attending Unavail able KEITH DO, DR CHUN Primary Care Unavailable MEGHANN-BACHERT DO, GLENDY Field Attending Mary vailable KEITH DO, DR CHUN Primary Care Unavailable MEGHANN-BACHERT DO, GLENDY Field Attending Mary vailable KEITH DO, DR CHUN Primary Care Unavailable MEGHANN-BACHERT DO, GLENDY Field Attending Mary vailable KEITH DO, DR CHUN Primary Care Unavailable MEGHANN-BACHERT DO, GLENDY Field Attending Mary vailable KEITH DO, DR CHUN Primary Care Unavailable MEGHANN-BACHERT DO, GLENDY Field Attending Mary vailable KEITH DO, DR CHUN Primary Care Unavailable GLENDY SMITH DO Attending Mary fredericilable RadhaPapi cali Attending Unavailable Radha, Papi Referring Unavailable Keith, Lay Alonso Primary Care Unavailable Glendy Jackson Attending Unavail able Glendy Jackson Referring Unavail able Lay Parker Primary Care Unavailable Radha, Papi Attending Unavailable Lya Parker Primary Care Unavailable Belkis Fiore Attending Unavailable Keith, Lay Alonso Primary Care Unavailable Glendy Jackson Attending Unavail able Lay Parker Primary Care Unavailable Keith, Lay Alonso Referring Unavailable Glendy Jackson Attending Unavail able Lay Parker Referring Unavailable Keith, Lay Alonso Primary Care Unavailable Radha, Papi Attending Unavailable Keith, Lay Alonso Referring Unavailable Keith, Lay Alonso Primary Care Unavailable Gely Valentin Attending Unavailable Gely Valentin Referring Unavailable Lay Parker Primary Care Unavailable Gely Valentin Attending Unavailable Gely Valentin Referring Unavailable Lay Parker Primary Care Unavailable Allergies Allergy Classification Reported Allergen(s) Allergy Type Date of Onset Reaction(s) Facility Opium (1 source) Opium; Translations: [opium] Drug Allergy [facility] (16 sources) Opium; Translations: [opium] Drug Allergy [facility] (15 sources) Paragoric; Translations: [PARAGORIC] Drug Intolerance 4 [facility] Work Phone: (1 source) antidiarrheals; Translations: [antidiarrheals] Propensity to adverse reactions (disorder) 5 [facility] Repository Medications Current Medications Medication Drug Class(es) Dates Sig (Normalized) Sig (Original) amoxicillin 875 mg / clavulanate 125 mg oral tablet (1 source) Penicillin-class Antibacterial Start: 06-27-2022 End: 07-04-2022 take 1 tablet by mouth every twelve hours amoxicillin-clavul anate 875 mg-125 mg oral tablet 1 tab(s), Oral, q12h, X 7 day(s), # 14 tab(s), 0 Refill(s), 07/04/22 8:11:00 EDT, Pharmacy: [facility]/pharmacy #[id number], 155, cm, 06/27/22 7:53:00 EDT, Height, 61.7 Start Date: 06/27/22 Stop Date: 07/04/22 Status: Ordered PreserVision (11 sources) Vitamin C Start: 08-18-2020 take 1 tablet by mouth once daily PreserVision Dose = 1 tab(s), Oral, qDay, # 90 tab(s), 0 Refill(s) Start Date: 08/18/20 Status: Ordered biotin-lutein 5,000 mcg- 10 mg tab (4 sources) Start: 08-18-2020 biotin-lutein 5,000 mcg- 10 mg tab Take by mouth. 08/18/2020 Active Start: 08-18-2020 biotin-lutein 5,000 mcg- 10 mg tab Take by mouth. 0 08/18/2020 Active Comment on above: Take by mouth. C,E,Zinc,Copper 32-[id number] (3 sources) Start: 06-16-2020 C,E,Zinc,Coppe r 15-[id number]-Baw Active 1 EACH PO TWICE A DAY June 16, 2020 5:43am Start: 06-16-2020 End: 03-23-2022 C,E,Zinc,Copper 91-Zwhdh3h-V ut Discontinued 1 EACH PO TWICE A DAY June 15, 2020 11:00pm March 23, 2022 9:05am Calcium Citrate-Vitamin D3 5 00 mg-12.5 mcg (500 unit) tablet,chewable (2 sources) Start: 03-12-2025 Calcium Citrat e-Vitamin D3 500 mg-12.5 mcg (500 unit) tablet,chewable Active 1 {tbl} PO TWICE A DAY March 12, 2025 12:00am Citracal Calcium + D Slow Release 1200 (8 sources) Start: 03-12-2024 Citracal Calci um + D Slow Release 1200 Oral, qAM, 0 Refill(s) Start Date: 03/12/24 Status: Ordered Repeat number: 1 Start: 03-12-2024 Citracal Calci um + D Slow Release 1200 Oral, qAM, 0 Refill(s) Start Date: 03/12/24 Status: Ordered clobetasol propionate 0.0005 mg/mg topical gel (3 sources) Corticosteroid Clobetasol Propi sheyla 0.05 % gel 1 nate applied topically 2 times a day Active Comment on above: 1 nate applied topica lly 2 times a day cyclobenzaprine hydrochloride 10 mg oral tablet (19 sources) Muscle Relaxant Start: 07-30-2024 End: 04-08-2025 cyclobenzaprine 10 mg oral tablet Dose : 10 mg = 1 tab(s), Oral, TID, # 21 tab(s), 0 Refill(s), Pharmacy: [facility]/pharmacy #[id number], 157, cm, 03/26/25 9:55:00 EDT, Height, kg, 03/26/25 9:55:00 EDT, Dosing Weight Start Date: 04/01/25 Stop Date: 04/08/25 Status: Ordered Quantity: 21.0 Unit: tab(s) Repeat number: 1 Start: 05-09-2024 cyclobenzaprin e (FLEXERIL) 10 mg tablet 05/09/2024 Active Start: 03-08-2024 End: 03-15-2024 cyclobenzaprine 10 mg oral t ablet Dose : 10 mg = 1 tab(s), Oral, TID, # 21 tab(s), 0 Refill(s) Start Date: 03/08/24 Stop Date: 03/15/24 Status: Ordered Quantity: 21.0 Unit: tab(s) Repeat number: 1 Start: 07-02-2022 End: 07-09-2022 cyclobenzaprine 10 mg oral t ablet Dose : 10 mg = 1 tab(s), Oral, TID, X 7 day(s), # 21 tab(s), 0 Refill(s), 07/09/22 12:04:00 EDT Start Date: 07/02/22 Stop Date: 07/09/22 Status: Ordered Start: 02-28-2018 End: 03-01-2018 take 1 tablet by mouth once daily Cyclobenzaprine 10 mg tablet Discontinued 10 mg PO daily February 28, 2018 12:00am March 01, 2018 11:10am Start: 04-19-2017 End: 02-25-2021 take 1 tablet by mouth three times daily as needed cyclobenzaprine (FLEXERIL) 10 mg tablet Indications: Spasm of thoracic back muscle Take 1 tablet by mouth three times daily as needed. 20 tablet 04/19/2017 02/25/2021 Discontinued doxylamine succinate 25 mg oral tablet (20 sources) Start: 03-01-2018 End: 06-05-2023 take 1 tablet by mouth at bedtime Doxylamine Succinate 25 mg tablet Active 25 mg PO AT BEDTIME June 05, 2023 1:59pm Insomnia Comment on above: 25 mg. Emergen-C oral [...] Take 20 mg by mouth once daily. estradiol 0.1 mg/ml vaginal cream (1 source) Estrogen Start: 04-03-2025 estradiol 0.1 mg/g vaginal cream See Instructions, apply a pea-sized amount of cream to index finger and insert vaginally every night x2 weeks and then 3x/wel, # 42.5 gram(s), 3 Refill(s), Pharmacy: [facility]/pharmacy #[id number], OAB (overactive bladder) Cystocele with prolapse, 157.5, cm, 04/03/25 15:19:00 EDT, Height, kg, 04/03/25 15:19:00 EDT, Dosing Weight Start Date: 04/03/25 Status: Ordered Quantity: 42.5 Unit: g Repeat number: 4 Indications: Overactive bladder; Uterovaginal prolapse, unspecified; Hypochlorite (3 sources) Start: 10-09-2022 hypochlorous acid (AVENOVA) 0.01 % topical spray 10/09/2022 Active Start: 10-09-2022 hypochlorous a arnel (AVENOVA) 0.01 % topical spray ketoconazole 20 mg/ml topical cream (7 sources) [...] sources) Antiarrhythmic, Amide Local Anesthetic Start: 03-09-2018 Lidoderm 5% topical patch Apply 1 patch(es), Topical, qDay, remove patches after 12 hours, # 7 patch(es), 0 Refill(s), 63.2 Start Date: 03/08/24 Status: Ordered Comment on above: Apply 1 patch(es), Topical, Daily, # 30 patch(es), 0 Refill(s) lutein 6 mg oral capsule (4 sources) Start: 03-12-2025 take 1 capsule by mouth once daily Lutein 6 mg capsule Active 6 mg PO daily March 12, 2025 12:00am give with meal/snack Start: 12-27-2024 take 1 dose by mouth once marialuisa y lutein Dose : 6 mg =, Oral, qDay, 0 Refill(s) Start Date: 12/27/24 Status: Ordered Repeat number: 1 24 hr mirabegron 25 mg extended release oral tablet (2 sources) beta3-Adrenergic Agonist Start: 04-03-2025 End: 08-01-2025 take 1 tablet by mouth once daily Mirabegron (Myrbetriq) 25 mg tablet extended release 24 hr Active 25 mg PO daily April 17, 2025 12:00am olopatadine 1 mg/ml ophthalmic solution (13 sources) [...] Drop in both e yes twice daily. 24 hr oxybutynin chloride 10 mg extended release oral tablet (1 source) Cholinergic Muscarinic Antagonist Start: take 1 tablet by mouth every hour, then take 1 tablet by mouth once daily oxybutynin 10 mg/24 hr oral tablet, extended release Dose : 10 mg = 1 tab(s), Oral, qDay, # 90 tab(s), 0 Refill(s), Pharmacy: [facility]/pharmacy #[id number], 157, cm, 02/19/25 8:47:00 EDT, Height, kg, 02/19/25 8:47:00 EDT, Dosing Weight Start Date: 02/19/25 Status: Ordered Quantity: 90.0 Unit: tab(s) Repeat number: 1 pantoprazole 40 mg delayed release oral tablet (2 sources) Proton Pump Inhibitor Start: 5 pantoprazole 40 mg oral enteric coated tablet Dose : 40 mg = 1 tab(s), Oral, qDay, # 100 tab(s), 1 Refill(s), Pharmacy: [facility], 157, cm, 03/26/25 9:55:00 EDT, Height, kg, 03/26/25 9:55:00 EDT, Dosing Weight Start Date: 03/28/25 Status: Ordered Quantity: 100.0 Unit: tab(s) Repeat number: 2 Start: 01-17-2025 pantoprazole 4 0 mg oral enteric coated tablet Dose : 40 mg = 1 tab(s), Oral, qDay, filling in lieu of pcp, # 90 tab(s), 0 Refill(s), Pharmacy: [facility], 157, cm, 12/27/24 7:29:00 EDT, Height, kg, 12/27/24 7:29:00 EDT, Dosing Weight Start Date: 01/17/25 Status: Ordered Quantity: 90.0 Unit: tab(s) Repeat number: 1 Pantoprazole 40 mg tablet,delayed release (DR/EC) (1 source) Start: 04-17-2025 take 1 tablet by mouth once daily Pantoprazole 40 mg tablet,delayed release (DR/EC) Active 40 mg PO daily April 17, 2025 12:00am phenylephrine hydrochloride 25 mg/ml ophthalmic solution (4 sources) alpha-1 Adrenergic Agonist Start: 07-18-2024 End: 07-18-2024 PHENYLephrine 2.5 % 1 Drop (AK-DILATE, PILO-SYNEPHRINE) Start: 07-18-2024 End: 07-18-2024 1 Drop, BOTH EYES, DIRECT ED, Starting on Evie 07/18/24 at 0800, Until Evie 07/18/24 at 1959, Administer for dilation PROTECT FROM [...] tablet (20 sources) Nonergot Dopamine Agonist Start: 10-10-2024 pramipexole 0.25 mg oral tablet Dose : 0.25 mg = 1 tab(s), Oral, BID, # 180 tab(s), 1 Refill(s), Pharmacy: [facility], 170, cm, 08/16/24 9:21:00 EST, Height, kg, 08/16/24 9:21:00 EST, Dosing Weight Start Date: 10/10/24 Status: Ordered Quantity: 180.0 Unit: tab(s) Repeat number: 2 Start: 08-09-2024 pramipexole 0. 25 mg oral tablet Dose : 0.25 mg = 1 tab(s), Oral, BID, # 180 tab(s), 3 Refill(s), Pharmacy: [facility], 170, cm, 06/05/24 10:50:00 EDT, Height, kg, 06/05/24 10:50:00 EDT, Dosing Weight Start Date: 08/09/24 Status: Ordered Start: 05-08-2024 pramipexole 0. 25 mg oral tablet Dose : 0.25 mg = 1 tab(s), Oral, BID, filling in lieu of pcp, # 180 tab(s), 0 Refill(s), Pharmacy: [facility], 157.5, cm, 04/29/24 13:06:00 EDT, Height, kg, 04/29/24 13:06:00 EDT, Dosing Weight Start Date: 05/08/24 Status: Ordered Start: 11-14-2023 pramipexole 0. 25 mg oral tablet Dose : 0.25 mg = 1 tab(s), Oral, BID, # 180 tab(s), 1 Refill(s), Pharmacy: [facility], 157, cm, 09/19/23 9:32:00 EST, Height, kg, 09/19/23 9:32:00 EST, Dosing Weight Start Date: 11/14/23 Status: Ordered Start: 09-08-2023 pramipexole 0. 25 mg oral tablet Dose : 0.25 mg = 1 tab(s), Oral, BID, # 180 tab(s), 1 Refill(s), Pharmacy: [facility], 158, cm, 10/21/22 10:24:00 EST, Height, kg, 11/03/22 10:22:00 EST, Dosing Weight Start Date: 09/08/23 Status: Ordered Start: 10-13-2022 pramipexole 0. 25 mg oral tablet Dose : 0.25 mg = 1 tab(s), Oral, BID, # 180 tab(s), 3 Refill(s), Pharmacy: [facility], 155, cm, 09/16/22 10:36:00 EST, Height, kg, 09/16/22 10:36:00 EST, Dosing Weight Start Date: 10/13/22 Status: Ordered Start: 03-23-2022 take 5 tablets by mo uth twice daily in the evening, then take 9 tablets by mouth in the evening Pramipexole 0.25 mg tablet Active 0.25 mg PO TWICE A DAY March 23, 2022 10:04am 5 pm and 9 pm Start: 10-05-2021 pramipexole 0. 25 mg oral tablet Dose : 0.25 mg = 1 tab(s), Oral, BID, # 180 tab(s), 3 Refill(s), Pharmacy: [facility] ([place]), 155, cm, 10/05/21 13:31:00 EST, Height, kg, 10/05/21 13:31:00 EST, Dosing Weight Start Date: 10/05/21 Status: Ordered Start: 03-11-2021 take 1.5 tablets by mouth once daily pramipexole 0.25 mg oral tablet 1.5, Oral, qDay, # 135 tab(s), 3 Refill(s), Pharmacy: [facility], 155, cm, 08/18/20 8:48:00 EST, Height, kg, 03/11/21 11:26:00 EDT, Dosing Weight Start Date: 03/11/21 Status: Ordered Start: 02-12-2021 End: 03-23-2022 take 0.375 mg by mouth once daily Pramipexole 0.25 mg tablet Discontinued 0.375 mg PO DAILY February 12, 2021 2:30pm March 23, 2022 10:07am Start: 02-12-2021 End: 03-23-2022 take 0.375 mg by mouth once daily Pramipexole Discontinued 0.375 MG PO DAILY February 12, 2021 1:30pm March 23, 2022 9:07am Start: 06-01-2020 End: 02-12-2021 take 1 tablet by mouth at bedtime Pramipexole 0.125 mg tablet Discontinued 0.125 mg PO AT BEDTIME June 01, 2020 12:00am February 12, 2021 2:30pm Start: 03-27-2019 End: 02-12-2021 take 1 tablet by mouth once daily Pramipexole 0.25 mg tablet Discontinued 0.25 mg PO DAILY June 01, 2020 1:53pm February 12, 2021 2:30pm Start: 03-01-2018 End: 03-27-2019 take 0.37 mg by mouth at bedtime Pramipexole 0.25 mg tablet Discontinued 0.37 mg PO AT BEDTIME March 01, 2018 11:07am March 27, 2019 1:05pm Start: 03-01-2018 End: 03-27-2019 take 0.37 mg by mouth at bedtime Pramipexole Discontinued 0.37 MG PO AT BEDTIME March 01, 2018 10:07am March 27, 2019 12:05pm Start: 02-28-2018 End: 03-01-2018 take 1 tablet by mouth at bedtime Pramipexole 0.25 mg tablet Discontinued 0.25 mg PO AT BEDTIME February 28, 2018 12:00am March 01, 2018 11:11am Comment on above: Take 0.25 mg by mout h once daily. PreserVision AREDS 2 (6 sources) Start: 04-26-2024 PreserVision AREDS 2 Chewed, BID, 0 Refill(s) Start Date: 04/26/24 Status: Ordered Repeat number: 1 Start: 04-26-2024 PreserVision A REDS 2 Chewed, BID, 0 Refill(s) Start Date: 04/26/24 Status: Ordered traMADol hydrochloride 50 mg oral tablet (20 sources) Opioid Agonist Start: 03-09-2018 take 1 tablet by mouth every six hours as needed Tramadol 50 mg tablet Active 50 mg PO EVERY 6 HOURS as needed September 22, 2021 1:00am Comment on above: 50 mg. triamcinolone acetonide [...] ED, Starting on Mon07/18/24 at 0800, Until Evie 07/18/24 at 1959, Administer for dilation, OPHT CLINIC MED ORDERS Start: 02-29-2024 End: 02-29-2024 tropicamide 1 % 1 Drop (MYDR IACYL) Start: 06-20-2023 End: 06-20-2023 tropicamide 1 % 1 Drop (MYDR IACYL) Vit C,E-Jf-Bikdl-Lutein-Zeax an (Preservision Areds-2) 250-90-40-1 mg capsule (6 sources) Start: 04-17-2025 take 2 capsules by mouth once daily Vit C,W-Iz-Tknhl-Lutein-Zeaxan (Preservision Areds-2) 250-90-40-1 mg capsule Active 1 {tbl} PO DAILY April 17, 2025 8:06am Start: 03-12-2025 End: 04-17-2025 take 2 capsules by mouth once Vit C,D-Xg-Gjjgy-Lutein-Zeaxan (Preservision Areds-2) 250-90-40-1 mg capsule Discontinued 1 {tbl} PO ONCE March 12, 2025 8:54am April 17, 2025 8:07am Start: 03-12-2025 take 2 capsules by m outh once Vit C,J-Zw-Vvmrs-Lutein-Zeaxan (Preservision Areds-2) 250-90-40-1 mg capsule Active 1 {tbl} PO ONCE March 12, 2025 8:54am Start: 03-23-2022 End: 03-12-2025 take 2 capsules by mouth twice daily Vit C,Q-Sh-Iahkw-Lutein-Zeaxan (Preservision Areds-2) 250-90-40-1 mg capsule Discontinued 1 {tbl} PO TWICE A DAY March 23, 2022 12:00am March 12, 2025 8:56am Start: 03-23-2022 Vit C,E-Zn-Tailor Garment Fitter oj-Exewzc-Gqcqgh (Preservision Areds-2) 250-90-40-1 mg capsule Active 1 TABLET PO TWICE A DAY March 22, 2022 11:00pm vit C/vit E ac/lut/copper/zi nc (PRESERVISION LUTEIN [...] Drug Class(es) Dates Sig (Normalized) Sig (Original) apixaban 5 mg oral tablet (20 sources) Factor Xa Inhibitor Start: 01-19-2021 End: 02-27-2025 take 1 tablet by mouth twice daily Apixaban (Eliquis) 5 mg tablet Discontinued 5 mg PO TWICE A DAY February 12, 2021 12:00am February 27, 2025 9:47am Start: 04-15-2020 End: 05-22-2020 take 1 tablet by mouth twice daily Apixaban (Eliquis) 5 mg tablet Discontinued 5 mg PO TWICE A DAY 180 4 April 15, 2020 9:23am May 22, 2020 2:23pm aspirin 81 mg delayed release oral tablet (6 sources) Platelet Aggregation Inhibitor, Nonsteroidal Anti-inflammatory Drug Start: 02-28-2018 End: 04-15-2020 take 1 tablet by mouth once daily Aspirin 81 mg tablet,delayed release (DR/EC) Discontinued 81 mg PO daily February 28, 2018 12:00am April 15, 2020 8:49am End: 06-08-2021 Aspirin 81 mg tab Take 81 mg by mouth. 06/08/2021 Discontinued benoxinate hydrochloride 4 mg/ml / fluorescein sodium 3 mg/ml ophthalmic solution (3 sources) Diagnostic Dye Start: 02-29-2024 End: 02-29-2024 fluorescein-benoxinate 0.3-0.4 % 1 Drop (FLURESS) Start: 06-20-2023 End: 06-20-2023 fluorescein-benoxinate 0.25- 0.4 % 1 Drop (FLURESS) Start: 03-17-2022 End: 03-17-2022 fluorescein-benoxinate 0.25- 0.4 % 1 Drop (FLURESS) Biotin (20 sources) Start: 06-05-2023 End: 03-12-2025 Biotin 5,000 mcg tablet,chew able Discontinued ug PO June 05, 2023 12:00am March 12, 2025 8:52am Start: 06-05-2023 Biotin Active MCG PO June 04, 2023 11:00pm Start: 08-18-2020 Biotin 5000 mc g oral capsule Dose : 5,000 mcg = 1 cap(s), Oral, Daily, 0 Refill(s) Start Date: 08/18/20 Status: Ordered biotin 5 mg casp ule 5 mg. Patient not sure of the dosage Active C,E,Copper,Zinc 01-Sigcm6s-Hnx 1 EACH capsule (1 source) Start: 06-16-2020 End: 03-23-2022 take 1 capsule by mouth twice daily C,E,Copper,Zinc 86-Fzlpr1a-Kvw 1 EACH capsule Discontinued 1 NMA PO TWICE A DAY June 16, 2020 12:00am March 23, 2022 10:05am C,E,Zinc,Copper 28-Fgqvh9l-Ord 1 EACH capsule (1 source) Start: 06-16-2020 End: 03-23-2022 take 1 capsule by mouth twice daily C,E,Zinc,Copper 40-Nnqtn6q-Hgf 1 EACH capsule Discontinued 1 NMA PO TWICE A DAY June 16, 2020 12:00am March 23, 2022 10:05am calcium carbonate 1500 mg oral tablet (5 sources) Start: 02-28-2018 End: 03-01-2018 take 1 tablet by mouth once daily Calcium Carbonate (Calcium 600) 600 mg calcium (1,500 mg) tablet Discontinued 600 mg PO daily February 28, 2018 12:00am March 01, 2018 11:08am calcium carbonate 1500 mg / cholecalciferol 800 unt oral tablet (8 sources) Vitamin D Start: 03-01-2018 End: 03-27-2020 Calcium Carbonate-Vitamin D3 600 mg(1,500mg) -800 unit tablet Discontinued 1 {tbl} PO EVERY WEEK March 01, 2018 12:00am March 27, 2020 2:05pm calcium carbonat e-vitamin D3 (CALCIUM 500+D) 500 mg-10 mcg (400 unit) chewable tablet 1 tab(s) chewed 2 times a day Active Comment on above: 1 tab(s) chewed 2 ti mes a day cholecalciferol 0.05 mg oral tablet (6 sources) Vitamin D Start: 06-05-20 End: 03-12-20 take 1 tablet by mouth once daily Cholecalciferol (Vitamin D3) (Vitamin D3) 50 mcg (2,000 unit) tablet Discontinued 5000 U PO DAILY June 05, 2023 2:00pm March 12, 2025 8:52am Start: 03-23-2022 End: 06-05-2023 take 1 tablet by mouth once daily Cholecalciferol (Vitamin D3) (Vitamin D3) 50 mcg (2,000 unit) tablet Discontinued 4000 U PO DAILY March 23, 2022 12:00am June 05, 2023 2:00pm diazePAM 10 mg oral tablet (20 sources) Benzodiazepine Start: 09-22-2021 End: 07-30-2024 take 5 mg by mouth twice daily as needed Diazepam 10 mg tablet Discontinued 5 mg PO TWICE A DAY as needed September 22, 2021 1:00am July 30, 2024 9:30am Start: 09-22-2021 take 5 mg by mouth twice daily Diazepam Active 5 MG PO TWICE A DAY September 22, 2021 11:05am Start: 03-09-2018 diazePAM 10 mg oral tablet Dose : 10 mg = 1 tab(s), Oral, BID, 0 Refill(s), 62.9 Start Date: 08/22/22 Status: Ordered Comment on above: 0.5 - 1 tab(s), Oral, BID, PRN as needed for anxiety, 0 Refill(s) famotidine 20 mg oral tablet (20 sources) Histamine-2 Receptor Antagonist Start: End: 5 take 1 tablet by mouth once daily Famotidine 20 mg tablet Discontinued 20 mg PO DAILY September 22, 2021 1:00am March 12, 2025 8:53am Comment on above: Take by mouth. ibuprofen 200 mg oral capsule (11 sources) Nonsteroidal Anti-inflammatory Drug Start: 8 End: take 1 capsule by mouth once daily Ibuprofen 200 mg capsule Discontinued 200 mg PO daily March 01, 2018 12:00am February 12, 2021 2:29pm End: 06-08-2021 take 1 tablet by mouth every six hours as needed ibuprofen 200 mg tablet Take 200 mg by mouth every 6 hours as needed. 06/08/2021 Discontinued Magnesium (5 sources) Start: 03-27-2019 End: 03-27-2020 take 250 mg by mouth once daily Magnesium Discontinued 250 MG PO DAILY March 27, 2019 1:05pm March 27, 2020 2:05pm Start: 03-27-2019 End: 03-27-2020 take 1 tablet by mouth once daily Magnesium 250 mg tablet Discontinued 250 mg PO DAILY March 27, 2019 12:00am March 27, 2020 2:05pm Start: 03-27-2019 End: 03-27-2020 take 250 mg by mouth once daily Magnesium Discontinued 250 MG PO DAILY March 26, 2019 11:00pm March 27, 2020 1:05pm methylPREDNISolone 4 mg oral tablet (2 sources) Corticosteroid Start: 03-08-2024 End: 03-14-2024 Medrol Dosepak 4 mg oral tablet 1 packet(s), Oral, qDay, as directed on package labeling, # 21 tab(s), 0 Refill(s) Start Date: 03/08/24 Stop Date: 03/14/24 Status: Ordered Multivitamin preparation (3 sources) Start: 03-27-2020 End: 05-22-2020 Multivitamin Discontinued 1 TABLET PO .3xweek March 27, 2020 2:06pm May 22, 2020 2:23pm Start: 03-27-2020 End: 05-22-2020 Multivitamin Discontinued 1 TABLET PO .3xweek March 26, 2020 11:00pm May 22, 2020 1:23pm Multivitamin tablet (2 sources) Start: 03-27-2020 End: 05-22-2020 Multivitamin tablet Discontinued 1 {tbl} PO .3xweek March 27, 2020 12:00am May 22, 2020 2:23pm Multivitamins-Isabela als-Lutein (VITRUM SENIOR) tab (1 source) End: 06-08-2021 Multivitamins-Mine rals-Lutein (VITRUM SENIOR) tab Take 1 tablet by mouth once daily. 3 times weekly 06/08/2021 Discontinued omeprazole 40 mg delayed release oral capsule (5 sources) Proton Pump Inhibitor Start: 06-16-2020 End: 09-22-2021 Omeprazole 40 MG capsule,delayed release(DR/EC) Discontinued 0 mg PO DAILY 30 0 June 16, 2020 12:00am September 22, 2021 11:04am prednisoLONE acetate 10 mg/ml ophthalmic suspension (5 [...] qDay, # 5 tab(s), 0 Refill(s), Pharmacy: [facility]/pharmacy #[id number], 158, cm, 10/21/22 10:24:00 EST, Height [...] Virus Nucleoside Analog DNA Polymerase Inhibitor Start: 10-10-2024 valACYclovir 1 g or al tablet Dose : 1 gram(s) = 1 tab(s), Oral, qDay, # 90 tab(s), 1 Refill(s), Pharmacy: [facility], 170, cm, 08/16/24 9:21:00 EST, Height, 61.9, kg, 08/16/24 9:21:00 EST, Dosing Weight Start Date: 10/10/24 Status: Ordered Quantity: 90.0 Unit: tab(s) Repeat number: 2 Start: 08-09-2024 valACYclovir 1 g oral tablet Dose : 1 gram(s) = 1 tab(s), Oral, qDay, # 90 tab(s), 3 Refill(s), Pharmacy: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 0.6% of the total QRS complexes. She also apparently has a history of mild mitral valve prolapse and aortic sclerosis. She denies chest, arm, jaw, or neck discomfort. She denies symptoms of shortness of breath with exertion, shortness of breath at rest, orthopnea, PND, sudden weight gain, or bilateral lower extremity edema. She denies chronic cough. She states lightheadedness in which she looses clarity. This is noted with position change and when outside. This has not occurred for several months. She denies palpitations, dizziness, near syncope, or syncopal episodes. She denies claudication issues. She denies fever or chills. She denies blood in urine, blood in stool, or epistaxis. She denies myalgia. She denies unexplainable fatigue. Her exercise tolerance is stable. Intake Vital Signs 06/05/23 13:52 07/30/24 09:27 Height 5 ft 2 in 5 ft 2 in Weight: 137 lb BMI 25.0 BP 125/78 H Blood Pressure Location Lt brachial Position Sitting Respiration 16 Pulse 63 Pulse Source Monitor Intake Visit Reasons: 1 Y FU PREV PFM Inspection Manager Required: No Accompanied by: Self Is patient in pain?: No Allergies antidiarrheals Allergy (Severe, Uncoded 07/30/24 09:28) Hives Medications ???Medication ???Instructions ???Recorded ???Confirmed ???Type valacyclovir 1 gram tablet 1,000 mg PO QDAY 02/28/18 07/30/24 History apixaban 5 mg tablet (Eliquis) 5 mg PO BID 02/12/21 07/30/24 History famotidine 20 mg tablet 20 mg PO DAILY 09/22/21 07/30/24 History tramadol 50 mg tablet 50 mg PO Q6H PRN 09/22/21 07/30/24 History pramipexole 0.25 mg tablet 0.25 mg PO BID 03/23/22 07/30/24 History vit C 250 mg-vit E 90 mg-zinc 40 1 tab PO BID 03/23/22 07/30/24 History mg-copper 1 ta-bxtinl-bfoadt capsule (PreserVision AREDS-2) biotin 5,000 mcg chewable tablet mcg PO 06/05/23 07/30/24 History cholecalciferol (vitamin D3) 50 5,000 unit PO DAILY 06/05/23 07/30/24 History mcg (2,000 unit) tablet (Vitamin D3) doxylamine succinate 25 mg tablet 25 mg PO QHS Insomnia 06/05/23 07/30/24 History cyclobenzaprine 10 mg tablet 5 - 10 mg PO TID PRN muscle spasm 07/30/24 07/30/24 History Have you fallen in the past year?: No PFSH Medical History Family history of malignant neoplasm of colon in father Diarrhea Guaiac positive stools Positive occult stool blood test Blood in stool Pure hypercholesterolemia Paroxysmal atrial flutter Nonrheumatic aortic valve disorder Premature beats Nonrheumatic tricuspid valve regurgitation Nonrheumatic mitral valve regurgitation Surgical History History of carpal tunnel surgery History of total hysterectomy Family History Grandmother Heart disease Social History Smoking Status: Never smoker alcohol intake: current details: occasional substance use type: does not use ROS Const Const: Negative for fatigue, weakness, headache(s), daytime sleepiness or difficulty sleeping ENT ENT: Positive for dizziness; Negative for headache(s) or Nosebleed/epistaxis Cardio Chest Pain: No Palpitations: Yes (accompanied by dizziness) feels like its: fast Edema: None Resp Respiratory: Positive for SOB with activity (with palps); Negative for SOB at rest, SOB orthopnea SOB lying down or Cough GI GI: Positive for heartburn; Negative nausea or vomiting Neuro Neuro: Positive for dizziness; Negative for lightheadedness, near syncope, headache(s) or weakness Endo Endo: Negative for fatigue Cardiology Exam Const Appearance: cooperative, healthy appearing, comfortable and no acute distress Nutritional Appearance: average body habitus and well nourished Orientation: alert, awake and oriented x3 Head Head: normal to inspection Ears: hearing grossly normal bilaterally (more content not included)... Normal [facility] OCT MACULA CIRRUS OU (BOTH E YES)on 07-18-2024 [facility] Radiology Study observation (narrative) [facility] MRI PELVIS W/ +W/O CONTRASTo n 07-12-2024 [...] Date: 07/12/2024 4:58:13 PM [facility]/ [facility]ASTon [facility]-0 CT PELVIS W/ CONTRAST ORIGINAL EXAMINATION: CT [...] the lesion. There is surrounding soft tissue inflammation/infiltrate in the region of urethra/vaginal canal. Mild sigmoid colonic diverticulosis without diverticulitis. Bladder is under distended. Joint: No significant degenerative changes. No osseous erosions. IMPRESSION: Indeterminate 2.4 cm complex lesion posterior to the urethra containing gas locules and surrounding inflammation/enhancemen t. 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 Lay Parker, DO Status: REG CLI Study: CT Abd/Pelvis W/WO Contrast Date of Exam: 05/09 12/30 Exam# [id number] Ordering [place]: [place] [id number] STUDY: CT ABDOMEN AND PELVIS WITH AND WITHOUT CONTRAST REASON FOR EXAM: Female, 79 years old. GROSS HEMATURIA RADIATION DOSAGE (If Supplied By Facility): CTDIvol = ( 13.53 ) mGy, DLP = ( 2140.21 ) mGycm TECHNIQUE: Transaxial images were obtained from the dome of the diaphragm to the symphysis pubis without oral contrast. IV 100mL Isovue-300 was administered. Sagittal and coronal images were reconstructed. Individualized dose optimization techniques were used for this CT. COMPARISON: None. FINDINGS: The visualized lung bases are unremarkable. Coronary artery calcification. There is decreased attenuation of the liver consistent with steatosis. Normal gallbladder and extrahepatic biliary system. Normal spleen. Normal pancreas. Normal bilateral adrenal glands. There is a 4.8 cm x 4.4 cm x 4.5 cm cyst in the upper midportion of the right kidney. There is also evidence of a 1 cm cyst in the inferior medial portion of the right kidney. There is a 4.6 cm x 3.9 cm x 5.1 cm cyst in the upper pole of the left kidney. Normal visualized stomach. Normal small intestine. There are scattered colonic diverticula consistent with diverticulosis. There is non-visualization of the appendix. Normal abdominal aorta. Normal inferior vena cava. Normal retroperitoneum. Normal urinary bladder. There is absence of the uterus consistent with a prior hysterectomy. Normal abdominal wall. There are diffuse degenerative changes of the visualized lumbar spine. Dextroconvex scoliosis. CT/CT Abd/Pelvis W/WO Contrast IMPRESSION: Bilateral renal cysts. Sigmoid diverticulosis. Status post hysterectomy. Electronically Signed: Shayne Rodriguez MD at 9:10 EDT , CC: Dr. Gely Valentin MD; Dr. Lay Parker DO Sales And Marketing Executive: Signed Normal [facility] Basic Metabolic Profile (BMP )on 05-09-2024 BUN/CRE 19.3 RATIO Normal 10-20 [facility] Comment on above: Performed By: #### L 500.2500 #### [facility] [address] [place], [address] CA,Total 9.6 mg/dL Normal 8.5-10.1 [facility] Comment on above: Performed By: #### L 500.2500 #### [facility] [address] [place], [address] Chloride [Moles/Vol] 103 mmol/L Normal 98-107 [facility] Comment on above: Performed By: #### L 500.2500 #### [facility] [address] [place], [address] CO2 [Moles/Vol] 28.0 mmol/L Normal 21.0-32.0 [facility] Comment on above: Performed By: #### L 500.2500 #### [facility] [address] [place], [address] Creatinine [Mass/Vol] 0.78 mg/dL Normal 0.55-1.02 [facility] Comment on above: Result Comment: The validity of the calculated GFR GFRAA in patients over 70 years has not been determined. Clinical correlation is essential. Performed By: #### L 500.2500 #### [facility] [address] [place], [address] EST GFR - AA 92 mL/min Normal >60 [facility] Comment on above: Result Comment: Afri can [place] GFR Calc Performed By: #### L 500.2500 #### [facility] [address] [place], [address] GAP 7 Normal 5-15 [facility] Comment on above: Performed By: #### L 500.2500 #### [facility] [address] [place], [address] GFR/1.73 sq M.predicted among non-blacks MDRD (S/P/Bld) [Vol rate/Area] 76 mL/min/{1.73_m2} Normal >60 [facility] Comment on above: Result Comment: Non- GFR Calc Performed By: #### L 500.2500 #### [facility] [address] [place], [address] Glucose [Mass/Vol] 73 mg/dL Low 74-106 [facility] Comment on above: Performed By: #### L 500.2500 #### [facility] [address] [place], [address] Potassium [Moles/Vol] 4.3 mmol/L Normal 3.5-5.1 [facility] Comment on above: Performed By: #### L 500.2500 #### [facility] [address] [place], [address] Sodium [Moles/Vol] 138 mmol/L Normal 136-145 [facility] Comment on above: Performed By: #### L 500.2500 #### [facility] [address] [place], [address] Urea nitrogen [Mass/Vol] 15 mg/dL Normal 7-18 [facility] Comment on above: Performed By: #### L 500.2500 #### [facility] [address] [place], [address] Cytology, Body Fluid / CSFon 05-09-2024 CYTOLOGY,BF/CSF SEE PATHOLOGY REPORT Normal [facility] Comment on above: Order Comment: URINE Result Comment: Spec christina submitted to Anatomical Pathology Department for testing. Performed By: #### L 350.1000 #### [facility] [address] [place], [address] Pap Stain (control)on 2023 Pap Stain (control) --- Patient Age/Sex Location Account Attending Physician ELISA SELLERS 79/F MTLAB [id number] Dr. Gely Valentin MD Specimen: [id number] Received: 05/10/24 Status: KAMRAN Vanegas Num: [id number] Spec Type: CYSPIN FL Subm Dr: Dr. Gely Valentin MD HEADER OPERATION: Not noted PRE-OP DIAGNOSIS: Gross hematuria TISSUE SUBMITTED: Urine for cytology DIAGNOSIS CYTOLOGY Urine for cytology (cytospin ): Negative for high grade urothelial carcinoma. See comment. / 05/10/2024 COMMENT Only rare epithelial cells are present. The specimen is insufficient for further evaluation. Clinical correlation is suggested. The [employer] System for urine cytology diagnostic categorization was used in the evaluation of this case. CYTOLOGY STUDY Slides are reviewed. CYTOLOGY GROSS Received is 50 ml of light-yellow cloudy fluid labeled with the patient's name and and designated per the requisition as urine. Submitted for cytology preparation. 05/10/2024 TC:5 CPT: 40741 Signed (signature on file) Dr. Sarthak Ramirez, DO 05/10/24 1222 Normal [facility] Comment on above: Performed By: #### P PAPS #### [facility] Laboratory [facility] [place] [address], [address] US PELVIS NON-OB W/TRANSVAGI NALon 04-25-2024 US PELVIS NON-OB W/TRANSVAGINAL ORIGINAL EXAMINATION: TRANSVAGINAL PELVIC ULTRASOUND 04/24/2024 TECHNIQUE: Transvaginal pelvic ultrasound was performed. COMPARISON: Images from MRI of the thoracic spine performed at [facility] [place] 03/21/2024 HISTORY: ORDERING SYSTEM PROVIDED HISTORY: Reason [...] Date: 04/25/2024 1:54:29 PM Ordering Provider: LAY PARKER [facility] ([place]) XR FOOT MINIMUM 3 VIEWS LEFT on [...] 03/18/2024 11:12:17 AM Ordering Provider: BRYAN Washburn [facility] ([place]) MA MAMMOGRAM SCREENING BILAT ERAL W/TOMOon 01-17-2024 MA MAMMOGRAM SCREENING BILATERAL W/MILTON ORIGINAL FROM: [facility] [address] [place] [address] PROCEDURE FOR: ELISA SELLERS [address] [place] [id number] Home: PID#: [id number] Exam#: [id number] : 1945 Age: 78 TO: LAY PARKER [place] [address] Fax: NO FAX EXAMINATION: SCREENING DIGITAL BILATERAL [...] addition to annual mammographic screening per the [employer]. BIRADS: MAMMOGRAM BI-RADS: 2: Benign finding RECALL: 1 year screening RECALL TYPE: mammo LETTER SENT: Normal BI-RADS 1 and 2 Interpreted by: Park Matos Preliminary Report By: Park Matos Electronically signed By Park Matos Dictated Date: 01/17/2024 1:22:05 PM Prelim Date: 01/17/2024 1:25:30 PM Sign Date: 01/17/2024 1:25:30 PM Ordering Provider: LAY PARKER Import Export Coordinator: JUNI GREENE RT(R)(M)(CT) TACK PICKER letter sent: Normal BI-RADS 1 and 2 Mammogram BI-RADS: 2 Benign Normal [facility] ([place]) .Auto Diffon 10-19-2023 Basophil, Absolute 0.0 10 3/mcL Normal 0.0-0.2 [facility] ([place]) Comment on above: Performed By: #### F T4, ADIFF, FT3, CMP, LIPID, ANEU, CBC, TSH, GFR #### [address] [address] Basophils/100 WBC (Bld) 0.9 % Normal 0.0-2.5 [facility] ([place]) Comment on above: Performed By: #### F T4, ADIFF, FT3, CMP, LIPID, ANEU, CBC, TSH, GFR #### [address] [address] Eosinophil, Absolute 0.1 10 3/mcL Normal 0.0-0.4 [facility] ([place]) Comment on above: Performed By: #### F T4, ADIFF, FT3, CMP, LIPID, ANEU, CBC, TSH, GFR #### [address] [address] Eosinophils/100 WBC (Bld) 1.8 % Normal 0.0-7.0 [facility] ([place]) Comment on above: Performed By: #### F T4, ADIFF, FT3, CMP, LIPID, ANEU, CBC, TSH, GFR #### [address] [address] Lymphocyte, Absolute 1.8 10 3/mcL Normal 0.8-3.9 [facility] ([place]) Comment on above: Performed By: #### F T4, ADIFF, FT3, CMP, LIPID, ANEU, CBC, TSH, GFR #### [address] [address] Lymphocytes/100 WBC (Bld) 34.6 % Normal 10.0-50.0 [facility] ([place]) Comment on above: Performed By: #### F T4, ADIFF, FT3, CMP, LIPID, ANEU, CBC, TSH, GFR #### [address] [address] Monocyte, Absolute 0.6 10 3/mcL Normal 0.2-1.0 [facility] ([place]) Comment on above: Performed By: #### F T4, ADIFF, FT3, CMP, LIPID, ANEU, CBC, TSH, GFR #### [address] [address] Monocytes/100 WBC (Bld) 10.4 % Normal 1.7-13.0 [facility] ([place]) Comment on above: Performed By: #### F T4, ADIFF, FT3, CMP, LIPID, ANEU, CBC, TSH, GFR #### [address] [address] Neutrophils/100 WBC (Bld) 52.3 % Normal 37.0-80.0 [facility] ([place]) Comment on above: Performed By: #### F T4, ADIFF, FT3, CMP, LIPID, ANEU, CBC, TSH, GFR #### [address] [address] .GFRon 10-19-2023 GFR 87 ml/min/1.73sqm Normal [facility] ([place]) Comment on above: Result Comment: GFR Population [...] CMP, LIPID, ANEU, CBC, TSH, GFR #### [address] [address] GFR Non- 71 ml/min/1.73sqm Normal [facility] ([place]) Comment on above: Result Comment: GFR Population [...] CMP, LIPID, ANEU, CBC, TSH, GFR #### [address] [address] .NEUABSon 10-19-2023 Neutrophil, Absolute 2.8 10 3/mcL Low 2.9-6.2 [facility] ([place]) Comment on above: Performed By: #### F T4, ADIFF, FT3, CMP, LIPID, ANEU, CBC, TSH, GFR #### [address] [address] CBCon 10-19-2023 Erythrocyte distribution width (RBC) [Ratio] 13.7 % Normal 11.5-14.5 [facility] ([place]) Comment on above: Performed By: #### F T4, ADIFF, FT3, CMP, LIPID, ANEU, CBC, TSH, GFR #### [place] [address] Hematocrit (Bld) [Volume fraction] 42.9 % Normal 37.0-47.0 [facility] ([place]) Comment on above: Performed By: #### F T4, ADIFF, FT3, CMP, LIPID, ANEU, CBC, TSH, GFR #### [place] [address] Hgb 14.4 G/dL Normal 12.0-16.0 [facility] ([place]) Comment on above: Performed By: #### F T4, ADIFF, FT3, CMP, LIPID, ANEU, CBC, TSH, GFR #### [place] [address] MCH (RBC) [Entitic mass] 29.1 pg Normal 27.0-31.2 [facility] ([place]) Comment on above: Performed By: #### F T4, ADIFF, FT3, CMP, LIPID, ANEU, CBC, TSH, GFR #### [place] [address] MCHC 33.6 G/dL Normal 33.0-37.0 [facility] ([place]) Comment on above: Performed By: #### F T4, ADIFF, FT3, CMP, LIPID, ANEU, CBC, TSH, GFR #### [place] [id number] MCV (RBC) [Entitic vol] 86.7 fL Normal 80.0-94.0 [facility] ([place]) Comment on above: Performed By: #### F T4, ADIFF, FT3, CMP, LIPID, ANEU, CBC, TSH, GFR #### [place] [address] Platelet 220 10 3/mcL Normal 130-400 [facility] ([place]) Comment on above: Performed By: #### F T4, ADIFF, FT3, CMP, LIPID, ANEU, CBC, TSH, GFR #### [address] [address] Platelet mean volume (Bld) [Entitic vol] 8.3 fL Normal 7.4-10.4 [facility] ([place]) Comment on above: Performed By: #### F T4, ADIFF, FT3, CMP, LIPID, ANEU, CBC, TSH, GFR #### [address] [address] RBC 4.94 10 6/mcL Normal 4.20-5.40 [facility] ([place]) Comment on above: Performed By: #### F T4, ADIFF, FT3, CMP, LIPID, ANEU, CBC, TSH, GFR #### [address] [address] WBC 5.3 10 3/mcL Normal 4.6-10.8 [facility]) Comment on above: Performed By: #### F T4, ADIFF, FT3, CMP, LIPID, ANEU, CBC, TSH, GFR #### [address] [address] CMPon 10-19-2023 Albumin Level 3.8 G/dL Normal 3.4-4.8 [facility]) Comment on above: Performed By: #### F T4, ADIFF, FT3, CMP, LIPID, ANEU, CBC, TSH, GFR #### [address] [address] Albumin/Globulin [Mass ratio] 1.2 {ratio} Normal 1.1-2.5 [facility]) Comment on above: Performed By: #### F T4, ADIFF, FT3, CMP, LIPID, ANEU, CBC, TSH, GFR #### [address] [address] ALP [Catalytic activity/Vol] 111 U/L Normal 40-135 [facility]) Comment on above: Performed By: #### F T4, ADIFF, FT3, CMP, LIPID, ANEU, CBC, TSH, GFR #### [address] [address] ALT [Catalytic activity/Vol] 22 U/L [facility] 14-59 [facility] Comment on above: Performed By: #### F T4, ADIFF, FT3, CMP, LIPID, ANEU, CBC, TSH, GFR #### [address] [address] AST [Catalytic activity/Vol] 17 U/L Normal 10-40 [facility] ([place]) Comment on above: Performed By: #### F T4, ADIFF, FT3, CMP, LIPID, ANEU, CBC, TSH, GFR #### [address] [address] Bili Total 0.9 mg/dL Normal 0.2-1.0 [facility] ([place]) Comment on above: Result Comment: Use of this assay is not recommended for patients undergoing treatment with eltrombopag due to the potential for falsely elevated results. Performed By: #### F T4, ADIFF, FT3, CMP, LIPID, ANEU, CBC, TSH, GFR #### [address] [address] BUN/Creatinine Ratio 21 ratio Normal 7-27 [facility] ([place]) Comment on above: Performed By: #### F T4, ADIFF, FT3, CMP, LIPID, ANEU, CBC, TSH, GFR #### [address] [address] Calcium [Mass/Vol] 9.3 mg/dL Normal 8.4-10.2 [facility] ([place]) Comment on above: Performed By: #### F T4, ADIFF, FT3, CMP, LIPID, ANEU, CBC, TSH, GFR #### [address] [address] Chloride [Moles/Vol] 103 mmol/L Normal 98-107 [facility]) Comment on above: Performed By: #### F T4, ADIFF, FT3, CMP, LIPID, ANEU, CBC, TSH, GFR #### [address] [address] CO2 [Moles/Vol] 31 mmol/L Normal 23-31 [facility] ([place]) Comment on above: Performed By: #### F T4, ADIFF, FT3, CMP, LIPID, ANEU, CBC, TSH, GFR #### [address] [address] Creatinine [Mass/Vol] 0.78 mg/dL Normal 0.55-1.02 [facility] ([place]) Comment on above: Performed By: #### F T4, ADIFF, FT3, CMP, LIPID, ANEU, CBC, TSH, GFR #### [place] [id number] Electrolyte Balance 6.0 mEq/L Normal 4.0-15.0 [facility] ([place]) Comment on above: Performed By: #### F T4, ADIFF, FT3, CMP, LIPID, ANEU, CBC, TSH, GFR #### [place] [address] Globulin 3.3 G/dL Normal [facility] ([place]) Comment on above: Performed By: #### F T4, ADIFF, FT3, CMP, LIPID, ANEU, CBC, TSH, GFR #### [address] [address] Glucose [Mass/Vol] 93 mg/dL Normal 83-110 [facility] ([place]) Comment on above: Performed By: #### F T4, ADIFF, FT3, CMP, LIPID, ANEU, CBC, TSH, GFR #### [address] [address] Potassium [Moles/Vol] 4.9 mmol/L Normal 3.5-5.1 [facility] ([place]) Comment on above: Performed By: #### F T4, ADIFF, FT3, CMP, LIPID, ANEU, CBC, TSH, GFR #### [address] [address] Sodium [Moles/Vol] 140 mmol/L Normal 136-145 [facility] ([place]) Comment on above: Performed By: #### F T4, ADIFF, FT3, CMP, LIPID, ANEU, CBC, TSH, GFR #### [place] [id number] Total Protein 7.1 G/dL Normal 6.4-8.2 [facility] ([place]) Comment on above: Performed By: #### F T4, ADIFF, FT3, CMP, LIPID, ANEU, CBC, TSH, GFR #### [address] [address] Urea nitrogen [Mass/Vol] 16 mg/dL Normal 7-18 [facility] ([place]) Comment on above: Performed By: #### F T4, ADIFF, FT3, CMP, LIPID, ANEU, CBC, TSH, GFR #### [place] [address] [address] FT3on 10-19-2023 Free T3 [Mass/Vol] 2.80 pg/mL Normal 2.30-4.00 [facility] ([place]) Comment on above: Performed By: #### F T4, ADIFF, FT3, CMP, LIPID, ANEU, CBC, TSH, GFR #### [address] [address] FT4on 10-19-2023 Free T4 [Mass/Vol] 1.02 ng/dL Normal 0.76-1.46 [facility] ([place]) Comment on above: Performed By: #### F T4, ADIFF, FT3, CMP, LIPID, ANEU, CBC, TSH, GFR #### [address] [address] LABORATORYOrdered By: SYSTEM SYSTEM on 10-19-2023 Albumin [...] 10-19-2023 Cholesterol [Mass/Vol] 260 mg/dL High 0-200 [facility] ([place]) Comment on above: Result Comment: Chol esterol Reference Interval: Less than 200 Desirable 200-239 Borderline high risk 240 and above High risk Performed By: #### F T4, ADIFF, FT3, CMP, LIPID, ANEU, CBC, TSH, GFR #### [place] [id number] [place], [place] [address] Cholesterol in HDL [Mass/Vol] 64 mg/dL High 40-60 [facility] ([place]) Comment on above: Performed By: #### F T4, ADIFF, FT3, CMP, LIPID, ANEU, CBC, TSH, GFR #### [address] [address] Cholesterol in LDL [Mass/Vol] 177 mg/dL High 0-130 [facility] ([place]) Comment on above: Performed By: #### F T4, ADIFF, FT3, CMP, LIPID, ANEU, CBC, TSH, GFR #### [place] [id number] [place], [place] [address] Triglyceride [Mass/Vol] 95 mg/dL Normal 0-150 [facility] ([place]) Comment on above: Result Comment: Trig lyceride Reference Interval: Less than 150 Normal 150-199 Borderline high risk 200-499 High risk 500 or higher Very high risk Performed By: #### F T4, ADIFF, FT3, CMP, LIPID, ANEU, CBC, TSH, GFR #### [place] [id number] [place], [place] [id number] TSHon 10-19-2023 TSH Qn 2.24 m[IU]/L Normal 0.36-3.74 [facility] ([place]) Comment on above: Performed By: #### F T4, ADIFF, FT3, CMP, LIPID, ANEU, CBC, TSH, GFR #### [id number] [place], [place] [address] LABORATORYOrdered By: Fei Jacobs on 09-24-2021 Albumin [...] disc space narrowing. Unremarkable left hip x-ray. Sales And Marketing Executive: VANESSA Transcribe Date/Time: Feb 25 2021 1:32P Dictated by : SAMIRA AMAYA MD This examination was interpreted and the report reviewed and electronically signed by: SAMIRA AMAYA MD on Feb 25 2021 1:39PM [facility] DIVISION OF RADIOLOGY Radiology Study observation (narrative) [facility] No Panel InformationOrdered By: Ccf Provider on 02-25-2021 [facility] XR Lumbar spine 3 Viewson * * [...] presented. FINDINGS: Lumbar spine: There are five njz-hhh-cbxdctq lumbar vertebrae. No acute fractures seen. There is grade 1 L4 on L5 anterolisthesis. Left-sided curvature/levoscoliosis demonstrated. L1-2, L2-3 and L4-5 disc space narrowing is demonstrated. There is mild osteophyte formation, with facet arthrosis. Kissing spine visualized on lateral view. Left hip: No acute fractures or subluxation of the left hip. The joint space appears maintained. No significant osteophyte formation seen. The visualized pelvic bones are intact. The soft tissue is within normal limits. DIVISION OF RADIOLOGY Provider, [facility] - 02/25/2021 * * *Final Report* [...] presented. FINDINGS: Lumbar spine: There are five aic-wsd-tghfbam lumbar vertebrae. No acute fractures seen. There is grade 1 L4 on L5 anterolisthesis. Left-sided curvature/levoscoliosis demonstrated. L1-2, L2-3 and L4-5 disc space [...] disc space narrowing. Unremarkable left hip x-ray. Sales And Marketing Executive: PSCiLsa Transcribe Date/Time: Feb 25 2021 1:32P Dictated by : SAMIRA AMAYA MD This examination was interpreted and the report reviewed and electronically signed by: SAMIRA AMAYA MD on Feb 25 2021 1:39PM [facility] XR Pelvis and Hip - left AP [...] presented. FINDINGS: Lumbar spine: There are five tva-hus-xixpiea lumbar vertebrae. No acute fractures seen. There is grade 1 L4 on L5 anterolisthesis. Left-sided curvature/levoscoliosis demonstrated. L1-2, L2-3 and L4-5 disc space narrowing is demonstrated. There is mild osteophyte formation, with facet arthrosis. Kissing spine visualized on lateral view. Left hip: No acute fractures or subluxation of the left hip. The joint space appears maintained. No significant osteophyte formation seen. The visualized pelvic bones are intact. The soft tissue is within normal limits. DIVISION OF RADIOLOGY Provider, [facility] - 02/25/2021 * * *Final Report* [...] presented. FINDINGS: Lumbar spine: There are five irr-wpq-vwxdrnl lumbar vertebrae. No acute fractures seen. There is grade 1 L4 on L5 anterolisthesis. Left-sided curvature/levoscoliosis demonstrated. L1-2, L2-3 and L4-5 disc space [...] disc space narrowing. Unremarkable left hip x-ray. Sales And Marketing Executive: PSCB Transcribe Date/Time: Feb 25 2021 1:32P Dictated by : SAMIRA AMAYA MD This examination was interpreted and the report reviewed and electronically signed by: SAMIRA AMAYA MD on Feb 25 2021 1:39PM EST [facility] No Panel Information [facility] Vital Signs Date Time Vital Sign Value Performing Clinician Facility 04-17-2025 08:00-0400 Body height 157.[address] Lay Parker DO Work Phone: [facility] 04-17-2025 08:00-0400 Body mass index (BMI) [Ratio] 24.8 kg/m2 Dr. Lay Parker DO Work Phone: [facility] 04-17-2025 08:00-0400 Body weight 61.[address] Lay Parker DO Work Phone: [facility] 04-17-2025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 if ever smoked [facility] Start: 06-20-2023 End: 02-29-2024 History of Social function [facility] Start: 06-20-2023 End: 02-29-2024 Tobacco use panel [facility] National Score (1-10 0), lower number is lower risk 60 [facility] Start: 09-03-2019 Sex Female (finding) [facility] Medical Equipment Procedure Code Equipment Code Equipment Origin al Text Equipment Identifier Dates Lens Iol 0d +24 Maritza Uv Abs - [id number] Start: 01-10-2022 Comment on above: Description: -0.10 Lens Iol 0d +24. 5 Maritza Uv Abs - [id number] Start: 01-24-2022 Comment on above: Description: -0.10 Functional Status Date Assessment Result Facility 03-08-2024 Functional Status Independent Iona ozuna [facility] 03-08-2024 Functional Status Standard Safet y ID band on, Allergy Band on, Call device within reach, Bed in low position, Wheels locked, personal items within reach, Visitor at bedside, Safety level maintained [facility] 07-02-2022 Functional Status ID band on, Call device within reach, Bed in low position, Wheels locked, Phone within reach, personal items within reach, Assistive devices within reach, Toileting device within reach, Bedside Cart Locked, Visitor at bedside, Safety level maintained [facility] Mental Status Date Assessment Result Facility 03-08-2024 Mental Status Orientation Oriented x 4 [facility] 03-08-2024 Mental Status [facility] 07-02-2022 Mental Status Oriented x 4 [facility] Clinical Notes 02-25-2021 to 03-12-2025 Note Date & Type Note Facility 03-12-2025 Evaluation note Diagnosis Onset Date Resolution Paroxysmal atrial flutter chronic March 12, 2025 8 :48am Chest pain acute April 17 7:47am Paroxysmal atrial flutter chronic April 17, 2025 7:47am [facility] Work Phone: [phone]) 936-925506-04-2025 [facility] [address] [place], [place] [id number] OFFICE VISIT Date of Service: 03/12/25 MR#: [id number] Acct: [id number] Name: ELISA SELLERS Rep #: [id number] : 1945 Provider: KATIA Wynn Age/Sex: 79/F Location: [facility] Status: Signed HPI HPI History of Present Illness Details: This is a 79-year-old white female who presents today for outpatient cardiovascular follow-up of her history of underlying PACs/PVCs/paroxysmal atrial flutter superimposed upon valvular heart diseasewith aortic valve sclerosis and mitral/tricuspid valve regurgitation. She did last have a Holter monitor in October of this year which demonstrated sinus rhythm with occasional paroxysmal atrial fibrillation and type I second-degree AV block noted atrial fibrillation comprise less than 0.6% of the total QRS complexes. She also apparently has a history of mild mitral valve prolapse and aortic sclerosis. From a cardiac standpoint, patient is doing well. She does not have any chest discomfort/heaviness/tightness. She does not have any worsening symptoms of shortness of breath. She does not have any orthopnea. She denies PND. She does not have any symptoms of congestive heart failure. She does not have any palpitations that she is aware of. She does not have any lightheadedness or dizziness. She does not have any near-syncope or syncope. She does not have any lower extremity edema. She does not have any symptoms of claudication. She has had issues with hip pain. She is doing PT for this. 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 Required: No Is patient in pain?: No Allergies antidiarrheals Allergy (Severe, Uncoded 03/12/25 08:51) Hives Medications ?Medication ?Instructions ?Recorded ?Confirmed ?Type valacyclovir 1 gram tablet 1,000 mg PO QDAY 02/28/18 0 03/12/25 History tramadol 50 mg tablet 50 mg PO Q6H PRN 09/22/21 History pramipexole 0.25 mg tablet 0.25 mg PO BID 03/23/2201/31 History doxylamine succinate 25 mg tablet 25 mg PO QHS Insomni a 06/05/23 03/12/25 History cyclobenzaprine 10 mg tablet 5 - 10 mg PO TID PRN musc le spasm 07/30/24 03/12/25 History apixaban 5 mg tablet (Eliquis) 5 mg PO BID #180 tabs 0 02/27/25 03/12/25 Rx calcium 500 mg (as citrate)-vit D3 1 tab PO BID 03/12/25 History 12.5 mcg (500 unit) chewable tablet lutein 6 mg capsule 6 mg PO QDAY 03/12/25 History vit C 250 mg-vit E 90 mg-zinc 40 1 tab PO ONCE 5 03/12/25 History mg-copper 1 qn-mubqfo-wtpudz capsule (PreserVision AREDS-2) Have you fallen in the past year?: Yes (one fall from trip) [facility] Medical History Family history of malignant neoplasm of colon in father Diarrhea Guaiac positive stools Positive occult stool blood test Blood in stool Pure hypercholesterolemia Paroxysmal atrial flutter Nonrheumatic aortic valve disorder Premature beats Nonrheumatic tricuspid valve regurgitation Nonrheumatic mitral valve regurgitation Surgical History History of carpal tunnel surgery History of total hysterectomy Family History Grandmother Heart disease Social History Smoking Status: Never smoker alcohol intake: current details: occasional substance use type: does not use ROS Const Const: Negative for fatigue or weakness Eyes Eyes: Negative for change in vision ENT ENT: Positive for dizziness and balance problems Cardio Chest Pain: No Palpitations: No Edema: None Resp Respiratory: Negative for SOB with activity, SOB at rest or SOB orthopneaundefinedSOB lying down GI GI: Negative nausea or heartburn Musc Musc: Positive for muscle aches/ myalgia, joint pain and balance problems Neuro Neuro: Positive for dizziness and lightheadedness; Negative for near syncope, syncope or weakness Endo Endo: Negative for fatigue Cardiology Exam Const Appearance: cooperative, healthy appearing, comfortable and no acute distress Nutritional Appearance: average body habitus and well nourished Orientation: alert, awake and oriented x3 Head Head: normal to inspection Ears: hearing grossly normal bilaterally Nose: external nose normal Face and Sinus: face symmetric Mouth: oral mucosae normal Eyes General: appearance normal, both eyes and all related structures Eyelids: eyelids normal EOM: EOM intact bilaterally Neck Neck: normal visual inspection and no JVD Carotids: normal carotid upstroke Chest Chest inspection: normal inspection of the chest, symmetric chest movement and normal respiratory effort; Negative cough Auscultation: Bilateral: Clear to Auscultation Cardio Rate: regular rate Rhythm: regular rhythm Heart sounds: S1 normal and S2 normal; Negative rub, gallop or murmur GI GI: normal to inspection Neuro General: patient alert, patient awake, patient oriented x3 and CN's II-XI intactbilaterally Skin Skin: no rashes or lesions noted Extremities Pulses: Normal: Right Posterior Tibial Pulse, Left Posterior Tibial Pulse, RightRadial Pulse and Left Radial Pulse Lower Extremity Edema: None: Bilateral Psych Psychological: normal affect Supplemental Info Supplemental Information Echocardiogram 08/05/2024: Interpretation Summary Normal LV size. Left ventricular systolic function is normal. The left ventricular ejection fraction is 65 %. Mild tricuspid valve insufficiency. Right ventricular systolic pressure estimated to be 36 mmHg. Equivocal mitral valve prolapse. Echocardiogram from 02/24/2022: Interpretation Summary Left ventricular systolic function is normal. The estimated ejection fraction is 60 %. The right atrium is mildly enlarged. Mild diffuse mitral valve thickening. Equivocal mitral valve prolapse. Mild (1+) mitral valve insufficiency. Moderate (2+) tricuspid valve insufficiency. Mild diffuse aortic valve thickening. Aortic sclerosis, no stenosis. Trivial pulmonic valve insufficiency. Right ventricular systolic pressure estimated to be 37 mmHg. Diastolic function is indeterminate. Echocardiogram: 04/23/2020 Interpretation Summary Left ventricular systolic function is [...] 31 mmHg. No evidence for diastolic dysfunction. 48 Hour Holter Monitor 10/31/23 Average HR was 6 7 bpm in NSR w/ PAF and periods of Second Degree AV Block Type I and Nonconducted P waves Min HR was 44 bpm in Sinus Bradycardia; Max HR was 141 bpm in AFib There were a total of 56 ventricular ectopic beats. No runs noted. There were a total of 707 supraventricular ectopic beats comprising 0.4% of the total QRS complexes. 19 atrial couplets. 17 atrial runs totaling 83 beats. The longest run was 11 beats rate 109 bpm. The fastest run was 3 beats rate 135 bpm. The longest R-R interval was 2.1 seconds. There were a total of 1241 beats of AFib comprising 0.6% of the total QRS complexes. The patient kept a 48 hour diary. No symptoms recorded. Conclusion: 48 Hour Holter Monitor in NSR with PAF with periods of Second DegreeAV Block Type I andoccasional PVCs/PACs. Labs: No Data to Display Diagnostics: Echocardiogram Abdomen/Pelvis CT Pulmonary: No Data to Display Past Visits: Cardiology Visit 03/12/25 Assessment and Plan Assessment and Plan (1) Paroxysmal atrial flutter: Status: Chronic Plan: She appears to be in a regular rhythm on exam. She is currently not on rate limiting medications. Her heart is well controlled. She will continue Eliquis for CVA protection. We will monitor her lightheadedness and if this worsens, she was asked to call our office to consider Holter or event monitor. I have also asked her to consider being in the react A-fib trial and she is going to bethinking about this. Plan Details Additional Comments: Thank you for allowing me to participate in the care of your patient. Please don't hesitate to callif any issues arise. This note was generated using a voice recognition system and there may be incorrect words, spellingor punctuation that were not noted when reviewing the office note prior to saving. 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 Lay Parker, DO ~ [facility]10-10-2024 NoteDate of Procedure 07/18/2024. Interpretation Right Eye Normal without fluid. Left Eye Normal without fluid.[id number] NoteHNO ID: [id number] Author: JACOBO ZAMORA MD Service: ? Author [...] and agree with all of its relevant components.[facility]10-10-2024 History of Present illness Narrative* Jacobo Zamora MD - 07/18/2024 8:00 AM EDT This is a 75 year old diagnosed upon referral with age related macular degeneration. Visual acuity is 20/20 RE, 20/20 LE. Intraocular pressures are 15/17. Anterior segment exam is notable for ccentered PCLs. Posterior segment exam is significant for a nevus RE 1DD without pigment or SRF. OCT maculashows normal foveal contour, with fine drusen. Decrease [...] and plan as stated above and agree withall of its relevant components. [facility] Note ORIGINAL EXAMINATION: MRI OF THE PELVIS [...] Date: 07/12/2024 4:58:13 PM Ordering Provider[facility] + Plan note Future Scheduled Tests Radiology* CT Pelvis w/ Contrast 06/05/24 * CT Pelvis w/o Contrast 06/19/24 * MRI Pelvis w/ + w/o Contrast 06/05/24 [facility] 06-10-2024 Note ORIGINAL EXAMINATION: THREE XRAY VIEWS OF [...] Date: 03/18/2024 11:12:17 AM Ordering [facility] [id number] Hospital Discharge instructions Patient Education 03/08/2024 15:54:25 [...] your side with your knees bent up towardyour chest and a pillow between your knees. [...] to 90 minutes, or several times a day.This will reduce swelling and pain. Be sure [...] You may need physical therapy or more testsif your symptoms get worse. If you had X-rays your healthcare provider may be checking for any broken bones, breaks, or fractures. Bruises and sprains can sometimes hurt as much as a fracture. These injuries can take time to heal completely. If your symptoms don t improve or they get worse, talk with your healthcare provider.You may need a repeat X-ray or other [...] Numbness in the groin or genital area [id number] [employer]. [address] [place] [address], [place] [address]. All rights reserved. This information is not intended as a substitute for professional medical care. Always follow yourhealthcare professional's instructions. Follow Up Care 03/08/2024 12:41:52 With:LAY PARKER DO Address: [address] [place] [phone] When:2-4 days [facility] 05-31-2024 Note Discharge Instructions Thank you for allowing [facility] to assist you with your healthcare needs. The following is importantdischarge information regarding your hospital visit. Diagnosis from Today's Visit Marilu(w) phenotype Lumbar strain What to Do Next Instructions from Your Care Team No qualifying data available. Post Acute Orders No qualifying data available. You Need to Schedule the Following Appointments Follow Up with LAY PARKER DO When:Within 2-4 days Where:[address] [facility] [facility] [place] [address]- [phone] Allergies Paregoric HIVE Medications Please ask your [...] rolanda) AneCream, Bactine, Glydo, Lidoderm, LidoRx, Medi-Quik [place], RadiaGuard, RectiCare, Regenecare [place], Solarcaine Cool Aloe What is the most [...] poison oak, poison sumac, and minor cuts, scratches,or rodriguez. Lidocaine topical is also used to [...] it has been prescribed by your doctor. Donot apply this medicine in larger amounts than [...] over large skin areas, or if you applyheat, bandages, or plastic wrap to treated skin [...] a child or pet who accidentally sucks onor swallows the patch. Seek emergency medical attention [...] of the medicine is absorbed through your skinand into your blood. Overdose symptoms may include [...] may report side effects to FDA at [phone]. What other drugs will affect lidocaine topical? Medicine used on the skin is not likely to be affected by other drugs you use. But many drugs can interact with each other. Tell each of your health care providers about all medicines you use, including prescription and jysv-tbj-yylames medicines, vitamins, and herbal products. Where can I get more information? Your pharmacist can provide more information about lidocaine topical. Remember, keep this and all other medicines out of the reach of children, never share your medicines with others, and use this medication only for the indication prescribed. Every effort has been made to ensure that the information provided by [employer]. ('[employer]') is accurate, up-to-date, and complete, but no guarantee is made to that effect. Drug information contained herein may be time sensitive. [employer] information has been compiled for use by healthcare practitioners and consumers in the [place] and therefore [employer] does not warrant that uses outside of the [place] are appropriate, unless specifically indicated otherwise. [employer]'s drug information does not endorse drugs, diagnose patients or recommend therapy. [employer]'s drug information isan informational resource designed to [...] effective or appropriate for any given patient. [facility] does not assume any responsibility for any aspect of healthcare administered with the aid of information [facility] provides. The information contained herein is not intended to cover all possible uses, directions, precautions, warnings, drug interactions, allergic reactions, or adverse effects. If you have questions about the drugs you are taking, check with your doctor, nurse or pharmacist. Copyright 1360-9764 [facility]. Version: 08.09. Revision Date: 06/28/2023. methylprednisolone (oral) [...] Your doctor may occasionally change your dose. Donot use this medicine in larger or smaller [...] expected to produce life threatening symptoms. However, alf use of high steroid doses can lead to symptoms such as thinning skin, easy bruising, changesin the shape or location of body fat [...] typhoid, yellow fever, varicella (chickenpox), zoster (shingles), andnasal flu (influenza) vaccine. What are the possible [...] may report side effects to FDA at 4-846-HFK-2858. What other drugs will affect methylprednisolone? Other drugs may interact with methylprednisolone, including prescription and dwbv-jqq-lwnjuto medicines, vitamins, and herbal products. Tell each of your health care providers about all medicines youuse now and any medicine you start or stop using. Where can I get more information? Your pharmacist can provide more information about methylprednisolone. Remember, keep this and all other medicines out of the reach of children, never share your medicines with others, and use this medication only for the indication prescribed. Every effort has been made to ensure that the information provided by [employer]') is accurate, up-to-date, and complete, but no guarantee is made to that effect. Drug information contained herein may be time sensitive. [employer] information has been compiled for use by healthcare practitioners and consumers in the [place] and therefore [employer] does not warrant that uses outside of the [place] are appropriate, unless specifically indicated otherwise. [employer] drug information does not endorse drugs, diagnose patients or recommend therapy. [employer] drug information isan informational resource designed to [...] effective or appropriate for any given patient. [employer] does not assume any responsibility for any aspect of healthcare administered with the aid of information [employer] provides. The information contained herein is not intended to cover all possible uses, directions, precautions, warnings, drug interactions, allergic reactions, or adverse effects. If you have questions about the drugs you are taking, check with your doctor, nurse or pharmacist. Copyright 0168-8426 [employer]. Version: 9.01. Revision Date: 06/07/2017. cyclobenzaprine (perico [...] may report side effects to FDA at 9-371-KWG-0376. What other drugs will affect cyclobenzaprine? Using [...] drugs may affect cyclobenzaprine, including prescription and yedu-pbx-qobrmkx medicines, vitamins, and herbal products. Not all [...] to ensure that the information provided by [employer]') is accurate, up-to-date, and complete, but no guarantee is made to that effect. Drug information contained herein may be time sensitive. [employer] information has been compiled for use by healthcare practitioners and consumers in the [place] and therefore [employer] does not warrant that uses outside of the [place] are appropriate, unless specifically indicated otherwise. [employer] drug information does not endorse drugs, diagnose patients or recommend therapy. [employer] drug information isan informational resource designed to [...] effective or appropriate for any given patient. [employer] does not assume any responsibility for any aspect of healthcare administered with the aid of information [employer] provides. The information contained herein is not intended to cover all possible uses, directions, precautions, warnings, drug interactions, allergic reactions, or adverse effects. If you have questions about the drugs you are taking, check with your doctor, nurse or pharmacist. Copyright 9387-9787 [employer]. Version: 7.01. Revision Date: 05/12/2023. Education Materials [...] your side with your knees bent up towardyour chest and a pillow between your knees. [...] to 90 minutes, or several times a day.This will reduce swelling and pain. Be sure [...] You may need physical therapy or more testsif your symptoms get worse. If you had X-rays your healthcare provider may be checking for any broken bones, breaks, or fractures. Bruises and sprains can sometimes hurt as much as a fracture. These injuries can take time to heal completely. If your symptoms don t improve or they get worse, talk with your healthcare provider.You may need a repeat X-ray or other [...] Numbness in the groin or genital area 4897-3723 [employer]. [address] [place] [address]. All rights reserved. This information is not intended as a substitute for professional medical care. Always follow yourhealthcare professional's instructions. Additional Information VACCINATE! IT SAVES LIVES! Members of the community who have not yet received the COVID-19 vaccine and would like to receive it can visit one of [facility] vaccine clinics. There are many vaccine clinic locations within the [facility]. For locations and available times, please visit www.[email or web address].[email or web address]/. It is important to note that some COVID mobile vaccine clinics are held outdoors and may be canceled in rainy or stormy conditions. To learn more about pediatric vaccinations (ages 5-11), we invite you to visit the [facility] webpage. https://www.[email or web address].org/pages/3131-Lasqo-Bjcpvykjgtt-Azhfnodjyr-Daemz-Eox stions.htmlTo learn more about the COVID-19 vaccine, we invite you to visit the CDC website for a list of frequently asked questions. https://www.cdc.gov/coronavirus/2019-ncov/vaccines/faq.html [facility] Patient Portal Access Instructions: Stay connected with your healthcare team and access your personal medical information anytime with the [employer] Patient Portal. If you would like a full copy of your medical records please contact the [facility] Medical Records Department Monday through Monday between 8a.m. and 4:30p.m. Please follow the directions below to access the portal: 1.Access the email account you provided upon registration to the [facility].2.Look for an invitation email from [facility].3.Open the email and access the invitation link: Accept Invitation to [facility]4.Fill in the required penn to create your account. Sign into [email or web address] with your username and password that you [...] you will allow to register on the [facility] [facility] Patient Portal for access to your information. You can also access the [facility] [facility] Patient Portal on the [employer]. Simply click on Health Records under [place] and then click on the Iona logo. HOW TO SAFELY DISPOSE OF PRESCRIPTION [...] Call your local pharmacy or go to http://Copier How To.Embedster/0R8Vh9k to find one close to you.3.Make use of household items: Use cat litter or old coffee grounds to dispose medications if other options arenot available. Mix your drugs with these household products, seal them in an airtight container andthrow it into the garbage. Call [facility]: [phone] to be sure your drugs can be [...] aware that I should contact my doctor. 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 Author [...] -Otherwise stable - Following with an outside cell operator for her refractions/contacts (H35.3131) Early dry stage [...] with all of its relevant components. Talib Aguero, [facility]05-23-2024 History of Present illness Narrative* Talib Aguero MD - 02/29/2024 1:20 PM EDT Encounter Diagnosis ICD-10-CM 1. Pseudophakia Z96.1 fluorescein-benoxinate [...] -Otherwise stable - Following with an outside cell operator for her refractions/contacts (H35.3131) Early dry stage [...] components. Talib Aguero MD [facility] History of Present illness Narrative* Jacobo Zamora MD - 06/20/2023 12:45 PM EDT This is a 75 year old diagnosed upon referral with age related macular degeneration. Visual acuity is 20/20 RE, 20/20 LE. Intraocular pressures are 15/17. Anterior segment exam is notable for ccentered PCLs. Posterior segment exam is significant for a nevus RE 1DD without pigment or SRF. OCT maculashows normal foveal contour, with fine drusen. Obtain [...] and plan as stated above and agree withall of its relevant components. documented in this encounterC[facility] History of Past illness Narrative* Problem Noted Date Diagnosed Date Resolved Date Exudative age-related macula r degeneration, bilateral, with active choroidal neovascularization 02/08/2023 02/08/2023 documented as of this encounter (statuses as of 06/20/2023) [facility] History of Present illness Narrative* Talib Aguero [...] the presence of Dr. Aguero Electronically signed, Hay Nicholson February 07, 2023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 Starting on Mon03/17/22 at 1100, Until Mon03/17/22 at 2259, Administer for applanation tonometry. In [...] 1 Drop, BOTH EYES, DIRECTED, Starting on Mon06/20/23 at 1100, Until Mon06/20/23 at 2259, Administer for pneumo tonometry, tonopen [...] or prosecute any alcohol or drug abuse patient.[facility] the event this information is protected by the Federal Confidentiality of Alcohol and Drug Abuse Patient Records regulations: The Federal rules restrict any use of the information to criminally investigate or prosecute any alcohol or drug abuse patient.[facility] the event this information is protected by the Federal Confidentiality of Alcohol and Drug Abuse Patient Records regulations: The Federal rules restrict any use of the information to criminally investigate or prosecute any alcohol or drug abuse patient.[facility] the event this information is protected by the Federal Confidentiality of Alcohol and Drug Abuse Patient Records regulations: The Federal rules restrict any use of the information to criminally investigate or prosecute any alcohol or drug abuse patient.[facility] the event this information is protected by the Federal Confidentiality of Alcohol and Drug Abuse Patient Records regulations: The Federal rules restrict any use of the information to criminally investigate or prosecute any alcohol or drug abuse patient.[facility] the event this information is protected by the Federal Confidentiality of Alcohol and Drug Abuse Patient Records regulations: The Federal rules restrict any use of the information to criminally investigate or prosecute any alcohol or drug abuse patient.[facility] the event this information is protected by the Federal Confidentiality of Alcohol and Drug Abuse Patient Records regulations: The Federal rules restrict any use of the information to criminally investigate or prosecute any alcohol or drug abuse patient.[facility] the event this information is protected by the Federal Confidentiality of Alcohol and Drug Abuse Patient Records regulations: The Federal rules restrict any use of the information to criminally investigate or prosecute any alcohol or drug abuse patient.[facility] the event this information is protected by the Federal Confidentiality of Alcohol and Drug Abuse Patient Records regulations: The Federal rules restrict any use of the information to criminally investigate or prosecute any alcohol or drug abuse patient.[facility] the event this information is protected by the Federal Confidentiality of Alcohol and Drug Abuse Patient Records regulations: The Federal rules restrict any use of the information to criminally investigate or prosecute any alcohol or drug abuse patient.[facility] the event this information is protected by the Federal Confidentiality of Alcohol and Drug Abuse Patient Records regulations: The Federal rules restrict any use of the information to criminally investigate or prosecute any alcohol or drug abuse patient.[facility] the event this information is protected by the Federal Confidentiality of Alcohol and Drug Abuse Patient Records regulations: The Federal rules restrict any use of the information to criminally investigate or prosecute any alcohol or drug abuse patient.[facility] the event this information is protected by the Federal Confidentiality of Alcohol and Drug Abuse Patient Records regulations: The Federal rules restrict any use of the information to criminally investigate or prosecute any alcohol or drug abuse patient.[facility] the event this information is protected by the Federal Confidentiality of Alcohol and Drug Abuse Patient Records regulations: The Federal rules restrict any use of the information to criminally investigate or prosecute any alcohol or drug abuse patient.[facility] Reason for Visit (unrecogniz ed section and [...] Care Teams (unrecognized sec tion and content) Benefits Officer Relationship Specialty Start Date End Date Madi Holland PCP - General Family Practice 01/07/14 Benefits Officer Relationship Specialty Start Date End Date Madi Holland PCP - General Family Practice 01/07/14 Benefits Officer Relationship Specialty Start Date End Date HollandMadi Caleb PCP - General Family Practice 01/07/14 01/03/22 Lay Parker, DO [address] [place] [address] PCP - General Family Practice 01/04/22 Onexin Yogesh [address] [place] [address] Optometry 01/04/22 Benefits Officer Relationship Specialty Start Date End Date Lay Parker, DO [address] [place] [address] PCP - General Family Practice 01/04/22 Onexin, Yogesh [address] [place] [address] Optometry 01/04/22 Benefits Officer Relationship Specialty Start Date End Date Lay Parker, DO [address] [place] [address] PCP - General Family Practice 01/04/22 Onexin Yogesh [address] [place] [address] Optometry 01/04/22 Benefits Officer Relationship Specialty Start Date End Date Lay Parker, DO [address] [place] [address] PCP - General Family Practice 01/04/22 Oney, Yogesh [address] [facility] [place] [address] Optometry 01/04/22 Benefits Officer Relationship Specialty Start Date End Date Lay Parker, DO [address] [place] [address] PCP - General Family Practice 01/04/22 Onexin Yogesh [address] [facility] [place] [address] Optometry 01/04/22 Benefits Officer Relationship Specialty Start Date End Date Lay Parker, DO [address] [place] [address] PCP - General Family Practice 01/04/22 Yogesh Carson [address] [place] [address] Optometry 01/04/22 Benefits Officer Relationship Specialty Start Date End Date Lay Parker DO [address] [place] [address] PCP - General Family Medicine 01/04/22 Yogesh Carson [address] [place] [address] Optometry 01/04/22 Benefits Officer Relationship Specialty Start Date End Date Lay Parker DO [address] [place] [address] PCP - General Family Medicine 01/04/22 Yogesh Carson [address] [place] [address] Optometry 01/04/22 Team Status: Active Member Role Status Dates Dr. Lay Parker , DO Family Provider Active Dr. Lay Parker , DO Primary Care Provider Activ e Team Status: Active Member Role Status Dates Dr. Lay Parker , DO Primary Care Provider Activ e Dr. Carlene Chang MD Attending Provider Active Eleazar Griggs SHANK PAPERER, SHANK PAPERER-C Referring Provider Active Team Status: Active Member Role Status Dates Dr. Lay Parker , DO Primary Care Provider Activ e Eleazar Griggs SHANK PAPERER, SHANK PAPERER-C Attending Provider, Referring Pro vider Active Team Status: Inactive Member Role Status Dates Dr. Lay Parker , DO Primary Care Provider Activ e Dr. Papi Garcia MD Attending Provider, Referring Pro vider Active Benefits Officer Relationship Specialty Start Date End Date Lay Parker DO [address] [place] [address] PCP - General Family Medicine 01/04/22 Alli Yogesh [address] [place] [address] Optometry 01/04/22 Benefits Officer Relationship Specialty Start Date End Date Madi Holland PCP - General Family Medicine 01/07/14 01/03/22 Benefits Officer Relationship Specialty Start Date End Date Lay Parker DO [address] [place] [address] PCP - General Family Medicine 01/04/22 Yogesh Carson [address] [place] [address] Optometry 01/04/22 Team Status: Inactive Member Role Status Dates Dr. Lay Parker , Primary Care Provider Activ e Start: March 12, 2025 End: March 12, 2025 Dr. Lay Parker DO Referring Provider Active Start: March 12, 2025 End: March 12, 2025 Glendy MONTALVO, PA Attending Provider Active Start: March 12, 2025 End: March 12, 2025 Team Status: Active Member Role/Relationship Status Dates Dr. Lay Parker DO Family Provider Active Dr. Lay Parker DO Primary Care Provider Activ e Team Status: Inactive Member Role/Relationship Status Dates Dr. Lay Parker DO Primary Care Provider Activ e Start: March 12, 2025 End: March 12, 2025 Dr. Lay Parker DO Referring Provider Active Start: March 12, 2025 End: March 12, 2025 Glendy MONTALVO, PA Attending Provider Active Start: March 12, 2025 End: March 12, 2025 Team Status: Inactive Member Role/Relationship Status Dates Dr. Lay Parker DO Primary Care Provider Activ e Start: April 17, 2025 End: April 17, 2025 Dr. Lay Parker , DO Referring Provider Active Start: April 17, 2025 End: April 17, 2025 Glendy MONTALVO, PA Attending Provider Active Start: April 17, 2025 End: April 17, 2025 Goals (unrecognized section and content) Goals may be documented in a n alternate section Care Team (unrecognized sect ion and content) Care Team Personnel Name: Arsh Mullins Clerdima Moreno PT Position: P3 Scheduling - Aids Nurse Advanced Member Role: Other Name: LAY PARKER DO Position: P4 Physician - Primary Care Med Service: Active Provider Member Role: Primary Care Physician Address: Address: [address] [place] [address]- Care Team Related Persons Name: LORENZO SEE Name: YAO RESENDIZ Address: [address] [facility] [place] [address] Care Team Personnel Name: Arsh Mullins Clerdima Moreno PT Position: P3 Scheduling - Aids Nurse Advanced Member Role: Other Name: LAY PARKER DO Position: P4 Physician - Primary Care Member Role: Primary Care Physician Address: Address: [address] [place] [id number] Care Team Related Persons Name: LORENZO SEE Name: YAO RESENDIZ Address: Home [address] [facility] [place]UJ[place] [id number] INFORMATION SOURCE (unrecogn ized section and content) DATE CREATED AUTHOR 06/15/2024 [facility] ([place]) DATE CREATED AUTHOR AUTHOR'S ORGANIZ ATION 07/20/2024 [facility] DATE CREATED AUTHOR AUTHOR'S ORGANIZ ATION 03/30/2025 [facility] DATE CREATED AUTHOR AUTHOR'S ORGANIZ ATION 04/06/2025 [facility] DATE CREATED AUTHOR AUTHOR'S ORGANIZ ATION 04/21/2025 [facility] FOR RECORDS PERTAINING TO PATIENTS WHO ARE [...] BE BASED ON THE PRIMARY CLINICAL RECORDS. [facility]. provides no warranty or guarantee of the accuracy or completeness of information in this document.
--- OUTSIDE RECORDS SUMMARY | 2025-04-22 07:10 | XMS RPT_ITS | CCD ---
Author Organization [facility] Care Team Providers Care Sales Representative Jewelry Name Role Phone DR LAY PARKER DO Primary Care Physician [phone] Susanna PT, Tiffanie Unavailable Unavailable Madi Holland Primary Care Provider Madi Holland Primary Care Provider Lay Parker DO Primary Care Provider OneYogesh lauren Unavailable Dr. Lay Parker Primary Care Provider 1([phone]) Dr. Lay Parker Referring Provider Dr. Krzysztof Salomon Attending Provider Dr. Lay Parker Primary Care Provider 1(3 30) Dr. Krzysztof Salomon Attending Provider [phone] DR LAY PARKER DO Primary Care Physician [phone] DR LAY PARKER DO Primary Care Physician [phone] Lay Parker DO Primary Care Provider Jamal Carsonlas Unavailable Lay Parker DO Primary Care Provider Dr. Lay Parker Primary Care Provider [phone] Dr. Carlene Chang Attending Provider Roof LINEN CHECKER, LINEN CHECKERMayra Menon Referring Provider [phone] Lay Parker DO Primary Care Provider BRYAN ECHEVARRIA DO Attending Unavailable LAY PARKER Primary Care Unavailable LAY PARKER Primary Care Unavailable MEGHANN-BACHERT, GLENDY Attending Unavaila ble MEGHANN-BACHERT, GLENDY Attending Unavaila ble KEITH, LAY Primary Care Unavailable MEGHANN-BACHERT, LGENDY Admitting Unavaila ble MEGHANN-BACHERT, GLENDY Attending Unavaila [...] Primary Care Unavailable Radha, Papi Attending Unavailable Lay Parekr Primary Care Unavailable Belkis Fiore Attending Unavailable [...] (1 source) Opium; Translations: [opium] Drug Allergy [facility] (16 sources) Opium; Translations: [opium] Drug Allergy [facility] (15 sources) Paragoric; Translations: [PARAGORIC] Drug Intolerance 4 [facility] Work Phone: (1 source) antidiarrheals; Translations: [antidiarrheals] Propensity to adverse reactions (disorder) 5 [facility] Rep[facility] Medications Current Medications Medication Drug Class(es) Dates Sig (Normalized) Sig (Original) amoxicillin 875 mg / clavulanate 125 mg oral tablet (1 source) Penicillin-class Antibacterial Start: 06-27-2022 End: 07-04-2022 take 1 tablet by mouth every twelve hours amoxicillin-clavul anate 875 mg-125 mg oral tablet 1 tab(s), Oral, q12h, X 7 day(s), # 14 tab(s), 0 Refill(s), 07/04/22 8:11:00 EDT, Pharmacy: [facility]/pharmacy #[id number], 155, cm, 06/27/22 7:53:00 EDT, Height, 61.7 [...] Comment on above: Take by mouth. C,E,Zinc,Copper 28-Jezdn4l-Hnc (3 sources) Start: 06-16-2020 C,E,Zinc,Coppe r 90-Wands6j-Mth Active 1 EACH PO TWICE A DAY June 16, 2020 5:43am Start: 06-16-2020 End: 03-23-2022 C,E,Zinc,Copper 32-Jqbmf1o-H ut Discontinued 1 EACH PO TWICE A [...] topical gel (3 sources) Corticosteroid Clobetasol Propi sheyal 0.05 % gel 1 nate applied topically 2 times a day Active Comment on above: 1 nate applied topica lly 2 times a day cyclobenzaprine hydrochloride 10 mg oral tablet (19 sources) Muscle Relaxant Start: 07-30-2024 End: 04-08-2025 cyclobenzaprine 10 mg oral tablet Dose : 10 mg = 1 tab(s), Oral, TID, # 21 tab(s), 0 Refill(s), Pharmacy: [facility]/pharmacy #[id number], 157, cm, 03/26/25 9:55:00 EDT, Height, [...] 3x/wel, # 42.5 gram(s), 3 Refill(s), Pharmacy: [facility]/pharmacy #[id number], OAB (overactive bladder) Cystocele with prolapse, 157.5, [...] qDay, # 90 tab(s), 0 Refill(s), Pharmacy: [facility]/pharmacy #[id number], 157, cm, 02/19/25 8:47:00 EDT, Height, kg, 02/19/25 8:47:00 EDT, Dosing Weight Start Date: 02/19/25 Status: Ordered Quantity: 90.0 Unit: tab(s) Repeat number: 1 pantoprazole 40 mg delayed release oral tablet (2 sources) Proton Pump Inhibitor Start: 5 pantoprazole 40 mg oral enteric coated tablet Dose : 40 mg = 1 tab(s), Oral, qDay, # 100 tab(s), 1 Refill(s), Pharmacy: [facility], 157, cm, 03/26/25 9:55:00 EDT, Height, kg, 03/26/25 9:55:00 EDT, Dosing Weight Start Date: 03/28/25 Status: Ordered Quantity: 100.0 Unit: tab(s) Repeat number: 2 Start: 01-17-2025 pantoprazole 4 0 mg oral enteric coated tablet Dose : 40 mg = 1 tab(s), Oral, qDay, filling in lieu of pcp, # 90 tab(s), 0 Refill(s), Pharmacy: [facility], 157, cm, 12/27/24 7:29:00 EDT, [...] BID, # 180 tab(s), 1 Refill(s), Pharmacy: [facility], 170, cm, 08/16/24 9:21:00 EST, Height, kg, 08/16/24 9:21:00 EST, Dosing Weight Start Date: 10/10/24 Status: Ordered Quantity: 180.0 Unit: tab(s) Repeat number: 2 Start: 08-09-2024 pramipexole 0. 25 mg oral tablet Dose : 0.25 mg = 1 tab(s), Oral, BID, # 180 tab(s), 3 Refill(s), Pharmacy: [facility], 170, cm, 06/05/24 10:50:00 EDT, Height, kg, 06/05/24 10:50:00 EDT, Dosing Weight Start Date: 08/09/24 Status: Ordered Start: 05-08-2024 pramipexole 0. 25 mg oral tablet Dose : 0.25 mg = 1 tab(s), Oral, BID, filling in lieu of pcp, # 180 tab(s), 0 Refill(s), Pharmacy: [facility], 157.5, cm, 04/29/24 13:06:00 EDT, Height, kg, 04/29/24 13:06:00 EDT, Dosing Weight Start Date: 05/08/24 Status: Ordered Start: 11-14-2023 pramipexole 0. 25 mg oral tablet Dose : 0.25 mg = 1 tab(s), Oral, BID, # 180 tab(s), 1 Refill(s), Pharmacy: [facility], 157, cm, 09/19/23 9:32:00 EST, Height, kg, 09/19/23 9:32:00 EST, Dosing Weight Start Date: 11/14/23 Status: Ordered Start: 09-08-2023 pramipexole 0. 25 mg oral tablet Dose : 0.25 mg = 1 tab(s), Oral, BID, # 180 tab(s), 1 Refill(s), Pharmacy: [facility], 158, cm, 10/21/22 10:24:00 EST, Height, kg, 11/03/22 10:22:00 EST, Dosing Weight Start Date: 09/08/23 Status: Ordered Start: 10-13-2022 pramipexole 0. 25 mg oral tablet Dose : 0.25 mg = 1 tab(s), Oral, BID, # 180 tab(s), 3 Refill(s), Pharmacy: [facility], 155, cm, 09/16/22 10:36:00 EST, [...] BID, # 180 tab(s), 3 Refill(s), Pharmacy: [facility]), 155, cm, 10/05/21 13:31:00 EST, Height, kg, 10/05/21 13:31:00 EST, Dosing Weight Start Date: 10/05/21 Status: Ordered Start: 03-11-2021 take 1.5 tablets by mouth once daily pramipexole 0.25 mg oral tablet 1.5, Oral, qDay, # 135 tab(s), 3 Refill(s), Pharmacy: [facility], 155, cm, 08/18/20 8:48:00 EST, Height, [...] 1 % 1 Drop (MYDR IACYL) Vit C,B-Xi-Ulzvh-Lutein-Zeax an (Preservision Areds-2) 250-90-40-1 mg capsule (6 sources) Start: 04-17-2025 take 2 capsules by mouth once daily Vit C,F-Md-Qpofp-Lutein-Zeaxan (Preservision Areds-2) 250-90-40-1 mg capsule Active 1 {tbl} PO DAILY April 17, 2025 8:06am Start: 03-12-2025 End: 04-17-2025 take 2 capsules by mouth once Vit C,J-Ze-Ugmoa-Lutein-Zeaxan (Preservision Areds-2) 250-90-40-1 mg capsule Discontinued 1 {tbl} PO ONCE March 12, 2025 8:54am April 17, 2025 8:07am Start: 03-12-2025 take 2 capsules by m outh once Vit C,Z-Vn-Zoiro-Lutein-Zeaxan (Preservision Areds-2) 250-90-40-1 mg capsule Active 1 {tbl} PO ONCE March 12, 2025 8:54am Start: 03-23-2022 End: 03-12-2025 take 2 capsules by mouth twice daily Vit C,V-Cp-Dmsjq-Lutein-Zeaxan (Preservision Areds-2) 250-90-40-1 mg capsule Discontinued 1 {tbl} PO TWICE A DAY March 23, 2022 12:00am March 12, 2025 8:56am Start: 03-23-2022 Vit C,E-Zn-Canopy Stringer ui-Evmnua-Svihpi (Preservision Areds-2) 250-90-40-1 mg capsule Active 1 [...] not sure of the dosage Active C,E,Copper,Zinc 04-Zoozn5f-Lyv 1 EACH capsule (1 source) Start: 06-16-2020 End: 03-23-2022 take 1 capsule by mouth twice daily C,E,Copper,Zinc 05-Oxcod5n-Tql 1 EACH capsule Discontinued 1 NMA PO TWICE A DAY June 16, 2020 12:00am March 23, 2022 10:05am C,E,Zinc,Copper 68-Gzfhk6m-Xqz 1 EACH capsule (1 source) Start: 06-16-2020 End: 03-23-2022 take 1 capsule by mouth twice daily C,E,Zinc,Copper 44-Hrbjn5r-Lvk 1 EACH capsule Discontinued 1 NMA PO [...] 27, 2020 12:00am May 22, 2020 2:23pm Multivitamins-White als-Lutein (VITRUM SENIOR) tab (1 source) End: [...] qDay, # 5 tab(s), 0 Refill(s), Pharmacy: [facility]/pharmacy #[id number], 158, cm, 10/21/22 10:24:00 EST, Height [...] qDay, # 90 tab(s), 1 Refill(s), Pharmacy: [facility], 170, cm, 08/16/24 9:21:00 EST, Height, 61.9, kg, 08/16/24 9:21:00 EST, Dosing Weight Start Date: 10/10/24 Status: Ordered Quantity: 90.0 Unit: tab(s) Repeat number: 2 Start: 08-09-2024 valACYclovir 1 g oral tablet Dose : 1 gram(s) = 1 tab(s), Oral, qDay, # 90 tab(s), 3 Refill(s), Pharmacy: [facility], 170, cm, 06/05/24 10:50:00 EDT, Height, 61.9, kg, 06/05/24 10:50:00 EDT, Dosing Weight Start Date: 08/09/24 Status: Ordered Start: 05-08-2024 valACYclovir 1 g oral tablet Dose : 1 gram(s) = 1 tab(s), Oral, qDay, filling in lieu of pcp, # 90 tab(s), 0 Refill(s), Pharmacy: [facility], 157.5, cm, 04/29/24 13:06:00 EDT, Height, 61, kg, 04/29/24 13:06:00 EDT, Dosing Weight Start Date: 05/08/24 Status: Ordered Start: 11-14-2023 valACYclovir 1 g oral tablet Dose : 1 gram(s) = 1 tab(s), Oral, qDay, # 90 tab(s), 1 Refill(s), Pharmacy: [facility], 157, cm, 09/19/23 9:32:00 EST, Height, [...] Facility Cardiology Visit Reporton Cardiology Visit Report [facility] [address] [place], [place] [address] OFFICE VISIT Date of Service: 04/17/25 MR#: [id number] Acct: [id number] Name: ELISA SELLERS Rep #: [id number] : 1945 Provider: KATIA Kee Age/Sex: 80/F Location: [facility] Status: Signed HPI HPI History of [...] NIBP Intake Visit Reasons: CP/See Clinical Note Diversional Therapist'S Assistant Required: No Is patient in pain?: No [...] DAILY 04/17/25 04/17/25 H istory mg-copper 1 xh-jzgkqy-cdyqfi capsule (PreserVision AREDS-2) Ejection fraction %: 65 [...] and Sinus: (more content not included)... Normal [facility] Cardiology Visit Reporton Cardiology Visit Report [facility] [address] [place] [address] OFFICE VISIT Date of Service: 03/12/25 MR#: [id number] Acct: [id number] Name: ELISA SELLERS Rep #: [id number] : 1945 Provider: KATIA Kee Age/Sex: 79/F Location: [facility] Status: Signed HPI HPI History of [...] Monitor Intake Visit Reasons: 1 Y FU Diversional Therapist'S Assistant Required: No Is patient in pain?: No [...] ONCE 03/12/25 03/12/25 Hi story mg-copper 1 bn-iuoyjn-eswwmp capsule (PreserVision AREDS-2) Have you fallen in [...] both ey (more content not included)... Normal [facility] MAMMOGRAM SCREENING BILAT ERAL W/TOMOon 01-22-2025 [place] MAMMOGRAM SCREENING BILATERAL W/[place] ORIGINAL FROM: [place] [address] PROCEDURE FOR: ELISA SELLERS [address] [place] [address] Home: PID#: [id number] Exam#: [id number] : 1945 Age: 79 TO: LAY PARKER [place] [address] Fax: NO FAX EXAMINATION: SCREENING DIGITAL BILATERAL [...] addition to annual mammographic screening per the [place] [employer]. BIRADS: BI-RADS: 2: Benign RECALL: 1 year screening RECALL TYPE: mammo LETTER SENT: Normal BI-RADS 1 and 2 Interpreted by: Alok White MD Preliminary Report By: Alok White MD Electronically signed By Alok White MD Dictated Date: 01/22/2025 8:59:51 PM Prelim Date: 01/22/2025 9:00:36 PM Sign Date: 01/22/2025 9:00:36 PM Ordering Provider: LAY PARKER Tubing Machine Tender: QUIQUE MENDEZ RT(R)(CT) letter sent: Normal BI-RADS 1 and 2 Mammogram BI-RADS: 2 Benign Normal [facility] BD BONE DENSITY DEXA AXIAL S [facility] 01-17-2025 BD BONE DENSITY DEXA AXIAL [...] 01/17/2025 12:25:20 PM Ordering Provider: LAY PARKER [facility] Echo Completeliban 08-05-2024 Echo Complete [facility] [address] [facility] [place] [address] Echo Complete 08/05/24 1004 MR#: [id number] Acct: [id number] Name: ELISA SELLERS Rep #: [id number] : 1945 79 From: Papi Garcia MD Attending Dr: Dr. Papi Garcia MD Status: ALEXANDER ELIAS Ordering Dr: Papi Garcia MD Date: 08/05/24 Location: [facility] Sex: F C Admitted: Reason For Study: [...] Dictated: 08/05/24 1004 Date Transcribed: 08/05/24 1237 Staff Attorney: Signed Normal [facility] Cardiology Visit Reporton Cardiology Visit Report [facility] [address] [place] [address] OFFICE VISIT Date of Service: 07/30/24 MR#: [id number] Acct: [id number] Name: ELISA SELLERS Rep #: [id number] : 1945 Provider: Dr. Papi Garcia MD Age/Sex: 79/F Location: [facility] Status: Signed HPI HPI History of [...] Visit Reasons: 1 Y FU PREV PFM Diversional Therapist'S Assistant Required: No Accompanied by: Self Is patient [...] PO BID 03/23/22 07/30/24 History mg-copper 1 su-sftpzg-pftdmx capsule (PreserVision AREDS-2) biotin 5,000 mcg chewable [...] normal bilaterally (more content not included)... Normal [facility] OCT MACULA CIRRUS OU (BOTH E YES)on 07-18-2024 [facility] Radiology Study observation (narrative) [facility] MRI PELVIS W/ +W/O CONTRASTo n [...] Date: 07/12/2024 4:58:13 PM [facility]/ CONTRASTon [facility]-0 [...] Date: 06/13/2024 4:35:14 PM Ordering [facility] Abd/Pelvis W/WO Contrasto n 05-21-2024 CT Abd/Pelvis W/WO Contrast [facility] Services [address] [place], [place] [id number] CT Abd/Pelvis W/WO Contrast MR#: [id number] Acct: [id number] Name: ELISA SELLERS Rep #: [id number] : 1945 F 79 From: Shayne medina MD PCP: Dr. Lay Parker, DO Status: REG CLI Study: CT Abd/Pelvis W/WO Contrast Date of Exam: 05/09 12/30 Exam# [id number] Ordering [place]: [place] [id number] STUDY: CT ABDOMEN AND PELVIS WITH AND [...] Gely Valentin MD; Dr. Lay Parker DO Staff Attorney: Signed Normal [facility] Basic Metabolic Profile (BMP )on 05-09-2024 BUN/CRE 19.3 RATIO Normal 10-20 [facility] Comment on above: Performed By: #### L 500.2500 #### [facility] [address] [place], [address] CA,Total 9.6 mg/dL Normal 8.5-10.1 [facility] Comment on above: Performed By: #### L 500.2500 #### [facility] [address] [place], [address] Chloride [Moles/Vol] 103 mmol/L Normal 98-107 [facility] Comment on above: Performed By: #### L 500.2500 #### [facility] [address] [place], [address] CO2 [Moles/Vol] 28.0 mmol/L Normal 21.0-32.0 [facility] Comment on above: Performed By: #### L 500.2500 #### [facility] [address] [place], [address] Creatinine [Mass/Vol] 0.78 mg/dL Normal 0.55-1.02 [facility] Comment on above: Result Comment: The validity of the calculated GFR GFRAA in patients over 70 years has not been determined. Clinical correlation is essential. Performed By: #### L 500.2500 #### [facility] [address] [place], [address] EST GFR - AA 92 mL/min Normal >60 [facility] Comment on above: Result Comment: Afri can [place] GFR Calc Performed By: #### L 500.2500 #### [facility] [address] [place], [address] GAP 7 Normal 5-15 [facility] Comment on above: Performed By: #### L 500.2500 #### [facility] [address] [place], [address] GFR/1.73 sq M.predicted among non-blacks MDRD (S/P/Bld) [Vol rate/Area] 76 mL/min/{1.73_m2} Normal >60 [facility] Comment on above: Result Comment: Non- GFR Calc Performed By: #### L 500.2500 #### [facility] [address] [place], [address] Glucose [Mass/Vol] 73 mg/dL Low 74-106 [facility] Comment on above: Performed By: #### L 500.2500 #### [facility] [address] [place], [address] Potassium [Moles/Vol] 4.3 mmol/L Normal 3.5-5.1 [facility] Comment on above: Performed By: #### L 500.2500 #### [facility] [address] [place], [address] Sodium [Moles/Vol] 138 mmol/L Normal 136-145 [facility] Comment on above: Performed By: #### L 500.2500 #### [facility] [address] [place], [address] Urea nitrogen [Mass/Vol] 15 mg/dL Normal 7-18 [facility] Comment on above: Performed By: #### L 500.2500 #### [facility] [address] [place], [address] Cytology, Body Fluid / CSFon 05-09-2024 CYTOLOGY,BF/CSF SEE PATHOLOGY REPORT Normal [facility] Comment on above: Order Comment: URINE Result Comment: Spec christina submitted to Anatomical Pathology Department for testing. Performed By: #### L 350.1000 #### [facility] [address] [place], [address] Pap Stain (control)on 2023 Pap Stain (control) --- Patient Age/Sex Location Account Attending Physician ELISA SELLERS 79/F MTLAB [id number] Dr. Gely Valentin MD Specimen: [id number] Received: 05/10/24 Status: KAMRAN Vanegas Num: [id number] Spec Type: CYSPIN FL Subm Dr: Dr. [...] Submitted for cytology preparation. 05/10/2024 TC:5 CPT: 37855 Signed (signature on file) Dr. Sarthak Ramirez, DO 05/10/24 1222 Normal [facility] Comment on above: Performed By: #### P PAPS #### [facility] [place], [address] US PELVIS NON-OB W/TRANSVAGI NALon 04-25-2024 US PELVIS NON-OB W/TRANSVAGINAL ORIGINAL EXAMINATION: TRANSVAGINAL PELVIC ULTRASOUND 04/24/2024 TECHNIQUE: Transvaginal pelvic ultrasound was performed. COMPARISON: Images from MRI of the thoracic spine performed at [facility] [place] 03/21/2024 HISTORY: ORDERING SYSTEM PROVIDED HISTORY: Reason [...] 04/25/2024 1:54:29 PM Ordering Provider: LAY PARKER [facility] ([place]) XR FOOT MINIMUM 3 VIEWS LEFT on [...] AM Ordering Provider: BRYAN [place] [facility] ([place]) [place] MAMMOGRAM SCREENING BILAT ERAL W/TOMOon 01-17-2024 [place] MAMMOGRAM SCREENING BILATERAL W/[place] ORIGINAL FROM: [facility] [address] [place] [address] PROCEDURE FOR: ELISA SELLERS [address] [place] [id number] Home: PID#: [id number] Exam#: [id number] : 1945 Age: 78 TO: LAY PARKER [place] [address] Fax: NO FAX EXAMINATION: SCREENING DIGITAL BILATERAL [...] addition to annual mammographic screening per the [place] [employer]. BIRADS: MAMMOGRAM BI-RADS: 2: Benign finding RECALL: 1 year screening RECALL TYPE: mammo LETTER SENT: Normal BI-RADS 1 and 2 Interpreted by: Park Matos Preliminary Report By: Park Matos Electronically signed By Park Matos Dictated Date: 01/17/2024 1:22:05 PM Prelim Date: 01/17/2024 1:25:30 PM Sign Date: 01/17/2024 1:25:30 PM Ordering Provider: LAY PARKER Tubing Machine Tender: JUNI GREENE RT(R)(M)(CT) WICK TENDER letter sent: Normal BI-RADS 1 and 2 Mammogram BI-RADS: 2 Benign Normal [facility] ([place]) .Auto Diffon 10-19-2023 Basophil, Absolute 0.0 10 3/mcL Normal 0.0-0.2 [facility] ([place]) Comment on above: Performed By: #### F T4, ADIFF, FT3, CMP, LIPID, ANEU, CBC, TSH, GFR #### [address] [address] Basophils/100 WBC (Bld) 0.9 % Normal 0.0-2.5 [facility] ([place]) Comment on above: Performed By: #### F T4, ADIFF, FT3, CMP, LIPID, ANEU, CBC, TSH, GFR #### [address] [address] Eosinophil, Absolute 0.1 10 3/mcL Normal 0.0-0.4 [facility] ([place]) Comment on above: Performed By: #### F T4, ADIFF, FT3, CMP, LIPID, ANEU, CBC, TSH, GFR #### [address] [address] Eosinophils/100 WBC (Bld) 1.8 % Normal 0.0-7.0 [facility] ([place]) Comment on above: Performed By: #### F T4, ADIFF, FT3, CMP, LIPID, ANEU, CBC, TSH, GFR #### [address] [address] Lymphocyte, Absolute 1.8 10 3/mcL Normal 0.8-3.9 [facility] ([place]) Comment on above: Performed By: #### F T4, ADIFF, FT3, CMP, LIPID, ANEU, CBC, TSH, GFR #### [address] [address] Lymphocytes/100 WBC (Bld) 34.6 % Normal 10.0-50.0 [facility] ([place]) Comment on above: Performed By: #### F T4, ADIFF, FT3, CMP, LIPID, ANEU, CBC, TSH, GFR #### [address] [address] Monocyte, Absolute 0.6 10 3/mcL Normal 0.2-1.0 [facility] ([place]) Comment on above: Performed By: #### F T4, ADIFF, FT3, CMP, LIPID, ANEU, CBC, TSH, GFR #### [address] [address] Monocytes/100 WBC (Bld) 10.4 % Normal 1.7-13.0 [facility] ([place]) Comment on above: Performed By: #### F T4, ADIFF, FT3, CMP, LIPID, ANEU, CBC, TSH, GFR #### [address] [address] Neutrophils/100 WBC (Bld) 52.3 % Normal 37.0-80.0 [facility] ([place]) Comment on above: Performed By: #### F T4, ADIFF, FT3, CMP, LIPID, ANEU, CBC, TSH, GFR #### [address] [address] .GFRon 10-19-2023 GFR 87 ml/min/1.73sqm Normal [facility] ([place]) Comment on above: Result Comment: GFR Population [...] CMP, LIPID, ANEU, CBC, TSH, GFR #### [address] [address] GFR Non- 71 ml/min/1.73sqm Normal [facility] ([place]) Comment on above: Result Comment: GFR Population [...] CMP, LIPID, ANEU, CBC, TSH, GFR #### [address] [address] .NEUABSon 10-19-2023 Neutrophil, Absolute 2.8 10 3/mcL Low 2.9-6.2 [facility] ([place]) Comment on above: Performed By: #### F T4, ADIFF, FT3, CMP, LIPID, ANEU, CBC, TSH, GFR #### [address] [address] CBCon 10-19-2023 Erythrocyte distribution width (RBC) [Ratio] 13.7 % Normal 11.5-14.5 [facility] ([place]) Comment on above: Performed By: #### F T4, ADIFF, FT3, CMP, LIPID, ANEU, CBC, TSH, GFR #### [place] [address] Hematocrit (Bld) [Volume fraction] 42.9 % Normal 37.0-47.0 [facility] ([place]) Comment on above: Performed By: #### F T4, ADIFF, FT3, CMP, LIPID, ANEU, CBC, TSH, GFR #### [place] [address] Hgb 14.4 G/dL Normal 12.0-16.0 [facility] ([place]) Comment on above: Performed By: #### F T4, ADIFF, FT3, CMP, LIPID, ANEU, CBC, TSH, GFR #### [place] [address] MCH (RBC) [Entitic mass] 29.1 pg Normal 27.0-31.2 [facility] ([place]) Comment on above: Performed By: #### F T4, ADIFF, FT3, CMP, LIPID, ANEU, CBC, TSH, GFR #### [place] [address] MCHC 33.6 G/dL Normal 33.0-37.0 [facility] ([place]) Comment on above: Performed By: #### F T4, ADIFF, FT3, CMP, LIPID, ANEU, CBC, TSH, GFR #### [place] [id number] MCV (RBC) [Entitic vol] 86.7 fL Normal 80.0-94.0 [facility] ([place]) Comment on above: Performed By: #### F T4, ADIFF, FT3, CMP, LIPID, ANEU, CBC, TSH, GFR #### [place] [address] Platelet 220 10 3/mcL Normal 130-400 [facility] ([place]) Comment on above: Performed By: #### F T4, ADIFF, FT3, CMP, LIPID, ANEU, CBC, TSH, GFR #### [address] [address] Platelet mean volume (Bld) [Entitic vol] 8.3 fL Normal 7.4-10.4 [facility] ([place]) Comment on above: Performed By: #### F T4, ADIFF, FT3, CMP, LIPID, ANEU, CBC, TSH, GFR #### [address] [address] RBC 4.94 10 6/mcL Normal 4.20-5.40 [facility] ([place]) Comment on above: Performed By: #### F T4, ADIFF, FT3, CMP, LIPID, ANEU, CBC, TSH, GFR #### [address] [address] WBC 5.3 10 3/mcL Normal 4.6-10.8 [facility]) Comment on above: Performed By: #### F T4, ADIFF, FT3, CMP, LIPID, ANEU, CBC, TSH, GFR #### [address] [address] CMPon 10-19-2023 Albumin Level 3.8 G/dL Normal 3.4-4.8 [facility]) Comment on above: Performed By: #### F T4, ADIFF, FT3, CMP, LIPID, ANEU, CBC, TSH, GFR #### [address] [address] Albumin/Globulin [Mass ratio] 1.2 {ratio} Normal 1.1-2.5 [facility]) Comment on above: Performed By: #### F T4, ADIFF, FT3, CMP, LIPID, ANEU, CBC, TSH, GFR #### [address] [address] ALP [Catalytic activity/Vol] 111 U/L Normal 40-135 [facility]) Comment on above: Performed By: #### F T4, ADIFF, FT3, CMP, LIPID, ANEU, CBC, TSH, GFR #### [address] [address] ALT [Catalytic activity/Vol] 22 U/L Normal 14-59 [facility] Comment on above: Performed By: #### F T4, ADIFF, FT3, CMP, LIPID, ANEU, CBC, TSH, GFR #### [address] [address] AST [Catalytic activity/Vol] 17 U/L Normal 10-40 [facility] ([place]) Comment on above: Performed By: #### F T4, ADIFF, FT3, CMP, LIPID, ANEU, CBC, TSH, GFR #### [address] [address] Bili Total 0.9 mg/dL Normal 0.2-1.0 [facility] ([place]) Comment on above: Result Comment: Use of this assay is not recommended for patients undergoing treatment with eltrombopag due to the potential for falsely elevated results. Performed By: #### F T4, ADIFF, FT3, CMP, LIPID, ANEU, CBC, TSH, GFR #### [address] [address] BUN/Creatinine Ratio 21 ratio Normal 7-27 [facility] ([place]) Comment on above: Performed By: #### F T4, ADIFF, FT3, CMP, LIPID, ANEU, CBC, TSH, GFR #### [address] [address] Calcium [Mass/Vol] 9.3 mg/dL Normal 8.4-10.2 [facility] ([place]) Comment on above: Performed By: #### F T4, ADIFF, FT3, CMP, LIPID, ANEU, CBC, TSH, GFR #### [address] [address] Chloride [Moles/Vol] 103 mmol/L Normal 98-107 [facility]) Comment on above: Performed By: #### F T4, ADIFF, FT3, CMP, LIPID, ANEU, CBC, TSH, GFR #### [address] [address] CO2 [Moles/Vol] 31 mmol/L Normal 23-31 [facility] ([place]) Comment on above: Performed By: #### F T4, ADIFF, FT3, CMP, LIPID, ANEU, CBC, TSH, GFR #### [address] [address] Creatinine [Mass/Vol] 0.78 mg/dL Normal 0.55-1.02 [facility] ([place]) Comment on above: Performed By: #### F T4, ADIFF, FT3, CMP, LIPID, ANEU, CBC, TSH, GFR #### [place] [id number] Electrolyte Balance 6.0 mEq/L Normal 4.0-15.0 [facility] ([place]) Comment on above: Performed By: #### F T4, ADIFF, FT3, CMP, LIPID, ANEU, CBC, TSH, GFR #### [place] [address] Globulin 3.3 G/dL Normal [facility] ([place]) Comment on above: Performed By: #### F T4, ADIFF, FT3, CMP, LIPID, ANEU, CBC, TSH, GFR #### [address] [address] Glucose [Mass/Vol] 93 mg/dL Normal 83-110 [facility] ([place]) Comment on above: Performed By: #### F T4, ADIFF, FT3, CMP, LIPID, ANEU, CBC, TSH, GFR #### [address] [address] Potassium [Moles/Vol] 4.9 mmol/L Normal 3.5-5.1 [facility] ([place]) Comment on above: Performed By: #### F T4, ADIFF, FT3, CMP, LIPID, ANEU, CBC, TSH, GFR #### [address] [address] Sodium [Moles/Vol] 140 mmol/L Normal 136-145 [facility] ([place]) Comment on above: Performed By: #### F T4, ADIFF, FT3, CMP, LIPID, ANEU, CBC, TSH, GFR #### [place] [id number] Total Protein 7.1 G/dL Normal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 [facility] Work Phone: 08-08-2012 influenza virus vacc ine, unspecified formulation DR KRZYSZTOF SALOMON MD [facility] 08-08-2012 influenza, seasonal, injectable Samreen Banjac HOME DECORATOR.INTAKE SPECIALIST Work Phone: [facility] Work Phone: 07-09-2009 pneumococcal polysaccharide vaccine, [address] KRZYSZTOF SALOMON MD [facility] 07-09-2009 unknown vaccine or immune globulin Samreen Harrington HOME DECORATOR.INTAKE SPECIALIST Work Phone: [facility] Work Phone: 05-22-2008 tetanus and diphther ia toxoids, adsorbed, preservative free, for adult use (5 Lf of tetanus toxoid and 2 Lf of diphtheria toxoid) DR KRZYSZTOF SALOMON MD [facility] Payers Date Payer Category Payer Private Health Insurance [id number] 2024 Self-pay [id number] 2010 Medicare MEDICARE MEDICAR E A AND B [id number] 2010-Present [phone] [address] [address] [place] [address] Medicare [id number] 2010 Medicare [id number]. [id number] 2010 Unknown [employer] [place] MEDICARE SUPPLEMENT [id number] 2010-Present [phone] [id number] [employer] [place] [id number] Indemnity [id number]. 2.7.3.226351.315 2010 Unknown [employer] MEDICARE SUPPLEMENT [id number] 2010-Present [id number] [address] [place] [address] Indemnity [id number]. 2.7.3.124675.315 2010 Medicare [id number] 2010 Unknown [id number] 1945 Unknown [id number] 2.16.840.1.711040.3.579. 2.627 1945 Unknown [id number] 2.16840.1.956682.3.579. 2.627 1945 Unknown [id number] 2.16840.1.241041.3.579. 2.627 1945 Unknown [id number] 2.16840.1.448732.3.579. 2.627 1945 Unknown [id number] 2.16840.1.633388.3.579. 2.62 1945 Unknown [id number] 2.16840.1.445385.3.579. 2.627 1945 Unknown [id number] 2.16840.1.819523.3.579. 2.627 1945 Unknown [id number] 2.16840.1.170673.3.579. 2.627 1945 Unknown [id number] 2.16840.1.708575.3.579. 2.627 1945 Unknown [id number] 2.16.840.1.308311.3.579. 2.627 1945 Unknown [id number] 2.16.840.1.624169.3.579. 2.627 1945 Unknown [id number] 2.16.840.1.435572.3.579. 2.627 1945 Unknown [id number] 2.840.1.100174.3.579. 2.62 1945 Unknown [id number] 2.16.840.1.134138.3.579. 2.62 1945 Unknown [id number] 2.840.1.879528.3.579. 2. 1945 Unknown [id number] 2.840.1.089746.3.579. 2. 1945 Unknown [id number] 2.840.1.815272.3.579. 2. 1945 Unknown [id number] 2.840.1.839741.3.579. 2.62 Unknown [id number] Unknown SELF PAY INSURANCE [id number] Unknown [id number] 2.840.1.770600.3.579. 2.462 Unknown [id number] 2.840.1.573198.3.579. 2.462 Unknown [id number] 2.840.1.914809.3.579. 2.462 Unknown [id number] 2.840.1.891354.3.579. 2.462 Unknown [id number] 2.840.1.901714.3.579. 2.462 Unknown [id number] 2.840.1.052879.3.579. 2.462 Unknown [id number] 2.16840.1.941108.3.579. 2.462 Unknown [id number] 2.16840.1.328535.3.579. 2.462 Unknown [id number] 2.840.1.332481.3.579. 2.462 Social History Date Type Detail Facility Start: 04-25-2019 End: 06-05-2023 Never smoked tobacco (finding) [facility] Start: 1945 Sex Assigned At Female A [facility] Start: 01-07-2014 End: 04-06-2020 Tobacco use and exposure Smokeless tobacco non-user [facility] Work Phone: Start: 01-03-2022 End: 07-18-2024 Alcohol intake Current drinker of alcohol (finding) [facility] Start: 05-21-2020 History SDOH Alcohol Comment rare [facility] Start: 01-26-2021 End: 01-24-2022 Exposure to SARS-CoV-2 (event) Not sure [facility] Start: 01-12-2022 End: 06-05-2023 Tobacco smoking status NHIS Unknown if ever smoked [facility] Start: 06-20-2023 End: 02-29-2024 History of Social function [facility] Start: 06-20-2023 End: 02-29-2024 Tobacco use panel [facility] National Score (1-10 0), lower number is lower risk 60 [facility]: 09-03-2019 Sex Female (finding) [facility] Medical Equipment Procedure Code Equipment Code Equipment Origin al Text Equipment Identifier Dates Lens Iol 0d +24 Maritza Uv Abs - [id number] Start: 01-10-2022 Comment on above: Description: -0.10 Lens Iol 0d +24. 5 Maritza Uv Abs - [id number] Start: 01-24-2022 Comment on above: Description: -0.10 Functional Status Date Assessment Result Facility 03-08-2024 Functional Status Independent Iona ozuna [facility] 03-08-2024 Functional Status Standard Safet y ID band on, Allergy Band on, Call device within reach, Bed in low position, Wheels locked, personal items within reach, Visitor at bedside, Safety level maintained [facility] 07-02-2022 Functional Status ID band on, Call device within reach, Bed in low position, Wheels locked, Phone within reach, personal items within reach, Assistive devices within reach, Toileting device within reach, Bedside Cart Locked, Visitor at bedside, Safety level maintained [facility] Mental Status Date Assessment Result Facility 03-08-2024 Mental Status Orientation Oriented x 4 [facility] 03-08-2024 Mental Status [facility] 07-02-2022 Mental Status Oriented x 4 [facility] Clinical Notes 02-25-2021 to 03-12-2025 Note Date & Type Note Facility 03-12-2025 Evaluation note Diagnosis Onset Date Resolution Paroxysmal atrial flutter chronic March 12, 2025 8 :48am Chest pain acute April 17 7:47am Paroxysmal atrial flutter chronic April 17, 2025 7:47am [facility] [employer] Work Phone: 1(830) 338-287406-04-2025 [facility] [address] [place], [place] [id number] OFFICE VISIT Date of Service: 03/12/25 MR#: [id number] Acct: [id number] Name: ELISA SELLERS Rep #: [id number] : 1945 Provider: KATIA Wynn Age/Sex: 79/F Location: [facility] Status: Signed HPI HPI History of [...] Monitor Intake Visit Reasons: 1 Y FU Diversional Therapist'S Assistant Required: No Is patient in pain?: No [...] PO ONCE 5 03/12/25 History mg-copper 1 wb-celpys-qazsxq capsule (PreserVision AREDS-2) Have you fallen in the past year?: Yes (one fall from trip) [facility] Medical History Family history of malignant [...] prior to saving. 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 Lay Parker, DO ~ [facility]10-10-2024 NoteDate of Procedure 07/18/2024. Interpretation Right Eye Normal without fluid. Left Eye Normal without fluid.[id number] NoteHNO ID: [id number] Author: JACOBO ZAMORA MD Service: ? Author [...] and agree with all of its relevant components.[facility]10-10-2024 History of Present illness Narrative* Jacobo Zamora [...] of its relevant components. documented in [facility] Note ORIGINAL EXAMINATION: MRI OF THE [...] Date: 07/12/2024 4:58:13 PM Ordering Provider: GLENDYDAVID [facility] Evaluation + Plan note Future Scheduled Tests Radiology* CT Pelvis w/ Contrast 06/05/24 * CT Pelvis w/o Contrast 06/19/24 * MRI Pelvis w/ + w/o Contrast 06/05/24 [facility] 06-10-2024 Note ORIGINAL EXAMINATION: THREE XRAY VIEWS [...] Date: 03/18/2024 11:12:17 AM Ordering Provider: [facility]AN [facility] [id number] Hospital Discharge instructions Patient Education 03/08/2024 15:54:25 [...] Numbness in the groin or genital area [id number] [employer] [address] [place] [address], [place] [address]. All rights reserved. This information is not intended as a substitute for professional medical care. Always follow yourhealthcare professional's instructions. Follow Up Care 03/08/2024 12:41:52 With:LAY PARKER DO Address: [address] [place] [phone] When:2-4 days [facility] 05-31-2024 Note Discharge Instructions Thank you [...] LAY PARKER DO When:Within 2-4 days Where:[address] [facility] [place] [phone]- [phone] Allergies Paregoric HIVE Medications Please ask your [...] rolanda) AneCream, Bactine, Glydo, Lidoderm, LidoRx, Medi-Quik [place], RadiaGuard, RectiCare, Regenecare [place], Solarcaine Cool Aloe What is the most [...] may report side effects to FDA at 2-596-BME-2889. What other drugs will affect lidocaine topical? Medicine used on the skin is not likely to be affected by other drugs you use. But many drugs can interact with each other. Tell each of your health care providers about all medicines you use, including prescription and vfig-wdq-egocfqw medicines, vitamins, and herbal products. Where can I get more information? Your pharmacist can provide more information about lidocaine topical. Remember, keep this and all other medicines out of the reach of children, never share your medicines with others, and use this medication only for the indication prescribed. Every effort has been made to ensure that the information provided by [employer]. ('[employer]') is accurate, up-to-date, and complete, but no guarantee is made to that effect. Drug information contained herein may be time sensitive. [employer] information has been compiled for use by healthcare practitioners and consumers in the [place] and therefore [employer] does not warrant that uses outside of the [place] are appropriate, unless specifically indicated otherwise. [employer]'s drug information does not endorse drugs, diagnose patients or recommend therapy. [employer]'s drug information isan informational resource designed to [...] appropriate for any given patient. [facility] does not assume any responsibility for any aspect of healthcare administered with the aid of information [facility] provides. The information contained herein is not intended to cover all possible uses, directions, precautions, warnings, drug interactions, allergic reactions, or adverse effects. If you have questions about the drugs you are taking, check with your doctor, nurse or pharmacist. Copyright 1965-4865 [facility]. Version: 08.09. Revision Date: 06/28/2023. methylprednisolone (oral) [...] expected to produce life threatening symptoms. However, prison use of high steroid doses can lead [...] may report side effects to FDA at 2-054-HHM-4503. What other drugs will affect methylprednisolone? Other drugs may interact with methylprednisolone, including prescription and ulrr-tbp-kypabwa medicines, vitamins, and herbal products. Tell each [...] to ensure that the information provided by [employer]') is accurate, up-to-date, and complete, but no guarantee is made to that effect. Drug information contained herein may be time sensitive. [employer] information has been compiled for use by healthcare practitioners and consumers in the [place] and therefore [employer] does not warrant that uses outside of the [place] are appropriate, unless specifically indicated otherwise. [employer] drug information does not endorse drugs, diagnose patients or recommend therapy. [employer] drug information isan informational resource designed to [...] effective or appropriate for any given patient. [employer] does not assume any responsibility for any aspect of healthcare administered with the aid of information [employer] provides. The information contained herein is not intended to cover all possible uses, directions, precautions, warnings, drug interactions, allergic reactions, or adverse effects. If you have questions about the drugs you are taking, check with your doctor, nurse or pharmacist. Copyright 8587-8380 [employer]. Version: 9.01. Revision Date: 06/07/2017. cyclobenzaprine (perico [...] may report side effects to FDA at 0-402-IHL-8266. What other drugs will affect cyclobenzaprine? Using [...] drugs may affect cyclobenzaprine, including prescription and qyob-pne-wbsbqed medicines, vitamins, and herbal products. Not all [...] to ensure that the information provided by [employer]') is accurate, up-to-date, and complete, but no guarantee is made to that effect. Drug information contained herein may be time sensitive. [employer] information has been compiled for use by healthcare practitioners and consumers in the [place] and therefore [employer] does not warrant that uses outside of the [place] are appropriate, unless specifically indicated otherwise. [employer] drug information does not endorse drugs, diagnose patients or recommend therapy. [employer] drug information isan informational resource designed to [...] effective or appropriate for any given patient. [employer] does not assume any responsibility for any aspect of healthcare administered with the aid of information [employer] provides. The information contained herein is not intended to cover all possible uses, directions, precautions, warnings, drug interactions, allergic reactions, or adverse effects. If you have questions about the drugs you are taking, check with your doctor, nurse or pharmacist. Copyright 3456-3929 [employer]. Version: 7.01. Revision Date: 05/12/2023. Education Materials [...] Numbness in the groin or genital area [phone] [employer]. [address] [place] [address]. All rights reserved. This information is not intended as a substitute for professional medical care. Always follow yourhealthcare professional's instructions. Additional Information VACCINATE! IT SAVES LIVES! Members of the community who have not yet received the COVID-19 vaccine and would like to receive it can visit one of [facility] vaccine clinics. There are many vaccine clinic locations within the [facility]. For locations and available times, please visit www.gettheshot.coronavirus.[place].gov/. It is important to note that some COVID mobile vaccine clinics are held outdoors and may be canceled in rainy or stormy conditions. To learn more about pediatric vaccinations (ages 5-11), we invite you to visit the [facility] webpage. https://www.[email or web address].org/pages/[email or web address]-Bnuqd-Ltjgdkgamcx-Okczkwogds-Prlxd-Dhd stions.htmlTo learn more about the COVID-19 vaccine, we invite you to visit the CDC website for a list of frequently asked questions. https://www.cdc.gov/coronavirus/2019-ncov/vaccines/faq.html [facility] Patient Portal Access Instructions: Stay connected with your healthcare team and access your personal medical information anytime with the [facility] Patient Portal. If you would like a full copy of your medical records please contact the [facility] Medical Records Department Monday through Monday between 8a.m. and 4:30p.m. Please follow the directions below to access the portal: 1.Access the email account you provided upon registration to the [facility].2.Look for an invitation email from [facility].3.Open the email and access the invitation link: Accept Invitation to [facility]4.Fill in the required penn to create your [...] you will allow to register on the [facility] Patient Portal for access to your information. You can also access the [facility] Patient Portal on the [employer]. Simply click on Health Records under [employer] and then click on the [facility] logo. [...] Call your local pharmacy or go to [email or web address] to find one close to you.3.Make use of household items: Use cat litter or old coffee grounds to dispose medications if other options arenot available. Mix your drugs with these household products, seal them in an airtight container andthrow it into the garbage. Call [facility]: [phone] to be sure your drugs can be [...] aware that I should contact my doctor. Patient/Settlement Agent Signature: Date/Time: Relationship to Patient: Witness Name/Signature: Date/Time: [facility]05-23-2024 NoteHNO ID: [id number] Author: TALIB AGUERO MD Service: ? Author [...] -Otherwise stable - Following with an outside ophthalmic medical assistant for her refractions/contacts (H35.3131) Early dry stage [...] all of its relevant components. Talib Aguero, [facility]05-23-2024 History of Present illness Narrative* Talib [...] -Otherwise stable - Following with an outside ophthalmic medical assistant for her refractions/contacts (H35.3131) Early dry stage [...] components. Talib Aguero MD documented in [facility] encounter[facility] History of Present illness Narrative* Jacobo [...] of its relevant components. documented in this encounterMer[facility]05-03-2023 History of Past illness Narrative* Problem Noted Date Diagnosed Date Resolved Date Exudative age-related macula r degeneration, bilateral, with active choroidal neovascularization 02/08/2023 02/08/2023 documented as of this encounter (statuses as of 06/20/2023) [facility]05-02-2023 History of Present illness Narrative* Talib [...] Past Histories independently gathered by the clinical direct support staff member and the remaining scribed note accurately describes [...] components. Talib Aguero MD note to yogesh carsno documented in this encounterMer[facility]09-24-2022 Hospital Discharge instructions Patient Education 07/02/2022 [...] are taking other medicines. You may use jzak-txv-pvldsdy medicines such as acetaminophen, ibuprofen, or naprosyn [...] Chills Burning or pain when passing urine [id number] [employer]. [address] [place] [address]. All rights reserved. This information is not intended as a substitute for professional medical care. Always follow yourhealthcare professional's instructions. Follow Up Care 07/02/2022 11:34:58 With:LAY PARKER Address: [address] [place] [address] [phone] Business (1) When:2-4 days Comments:You may use muscle relaxers as prescribed. Light stretching, follow-up with your doctor, return if any worsening or concerning symptoms. [facility] 09-24-2022 Emergency department Discharge summary Discharge Instructions Thank you for allowing [facility] to assist you with your healthcare needs. [...] if any worsening or concerning symptoms. Where: [address] [place] [address] [phone] Business (1) Allergies Paregoric (HIVE) Medications Please [...] may report side effects to FDA at 6-797-WAJ-6584. What other drugs will affect cyclobenzaprine? Using [...] drugs may affect cyclobenzaprine, including prescription and nkkz-hct-tljvhdh medicines, vitamins, and herbal products. Not all [...] to ensure that the information provided by [employer]. ('[employer]') is accurate, up-to-date, and complete, but no guarantee is made to that effect. Drug information contained herein may be time sensitive. [employer] information has been compiled for use by healthcare practitioners and consumers in the [place] and therefore [employer] does not warrant that uses outside of the [place] are appropriate, unless specifically indicated otherwise. [employer] drug information does not endorse drugs, diagnose patients or recommend therapy. [employer] drug information isan informational resource designed to [...] appropriate for any given patient. [facility] does not assume any responsibility for any aspect of healthcare administered with the aid of information [facility] provides. The information contained herein is not intended to cover all possible uses, directions, precautions, warnings, drug interactions, allergic reactions, or adverse effects. If you have questions about the drugs you are taking, check with your doctor, nurse or pharmacist. Copyright 9197-1947 [facility] [employer]. Version: 5.01. Revision Date: 07/04/2018. Education Materials [...] are taking other medicines. You may use ookp-igq-cpiione medicines such as acetaminophen, ibuprofen, or naprosyn [...] Chills Burning or pain when passing urine 9574-1287 [employer]. [address] [place] [address]. All rights reserved. This information is not intended as a substitute for professional medical care. Always follow yourhealthcare professional's instructions. Additional Information VACCINATE! IT SAVES LIVES! Members of the community who have not yet received the COVID-19 vaccine and would like to receive it can visit one of [facility] vaccine clinics. There are many vaccine clinic locations within the [facility]. For locations and available times, please visit [email or web address]. It is important to note that some COVID mobile vaccine clinics are held outdoors and may be canceled in rainy orstormy conditions. To learn more about pediatric vaccinations (ages 5-11), we invite you to visit the [facility] webpage. https://[email or web address]/pages/[email or web address]-Kwkso-Sycjitnzgjw-Siyoyrcjdx-Yjytg-Bgi stions.htmlTo learn more about the COVID-19 vaccine, we invite you to visit the [facility] website for a list of frequently asked questions. [email or web address]-[email or web address]-Sdhqacnr/aytjs-Rqktiyi-Ltivurtpvv _Asked-Questions.pdf [facility] Patient Portal Access Instructions: Stay connected with your healthcare team and access your personal medical information anytime with the [facility] Patient Portal. If you would like a full copy of your medical records please contact the [facility] Medical Records Department Monday through Monday between 8a.m. and 4:30p.m. Please follow the directions below to access the portal: 1.Access the email account you provided upon registration to the [facility].2.Look for an invitation email from [facility].3.Open the email and access the invitation link: Accept Invitation to [facility]4.Fill in the required penn to create your account. Sign into www.Art of Click with your username and password that you [...] you will allow to register on the [facility] Patient Portal for access to your information. You can also access the [facility] Patient Portal on the [employer] nate. Simply click on Health Records under [employer] and then click on the nxtControl logo. HOW TO SAFELY DISPOSE OF PRESCRIPTION [...] Call your local pharmacy or go to [email or web address] to find one close to you.3.Make use of household items: Use cat litter or old coffee grounds to dispose medications if other options arenot available. Mix your drugs with these household products, seal them in an airtight container andthrow it into the garbage. Call [facility]: [phone] to be sure your drugs can be [...] aware that I should contact my doctor. 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 Talib Aguero MD documented in this encounterMer[facility] History of Present illness Narrative* Talib [...] components. Talib Aguero MD documented in this encounterMer[facility]04-12-2022 History of Present illness Narrative* Talib [...] components. Talib Aguero MD documented in this encounterMer[facility]04-06-2022 Miscellaneous Notes* Telephone Encounter - Talib [...] components. Talib Aguero MD documented in this encounterMer[facility]04-05-2022 Instructions* Patient Instructions* Talib Aguero MD [...] activities including water activities documented in this encounterMercy [facility]04-05-2022 History of Present illness Narrative* Talib [...] components. Talib Aguero MD documented in this encounterMercy [facility]03-28-2022 History and physical note * Samreen Harrington APRN.INTAKE SPECIALIST - 01/03/2022 10:00 AM EDT HISTORY AND [...] fevers. Neuro: No history of TIA's, stroke, CANE FLUME FEEDING MACHINE OPERATOR tumor, impaired sensorium, hemiplegia, paraplegia or quadriplegia. [...] dialysis. No history of symptoms or problems. OUTREACH LIBRARIAN: No vaginal bleeding due to menopause and [...] Echo Echo Complete on 04-23-2020 Echo Complete [facility] [address] [place] [address]. [place] [address] Echo Complete 04/23/20 1400 MR#: [id number] Acct: [id number] Name: ELISA SELLERS Rep #: [id number] : 1945 75 From: Krzysztof Salomon MD [...] 2022 TIME: 10:46 AM documented in this encounterMercy Health [facility]rb[facility]03-28-2022 Instructions* Patient Instructions* Samreen Harrington APRN.CNP - 01/03/2022 9:48 AM EDT [facility] Patient Instructions for Surgery FOOD INSTRUCTIONS: [...] visit please do not hesitate to contact [facility] at [phone] or [phone], ext [phone]. Signature: Samreen Harrington Date: January 03, 2022 documented in this encounterMercy Health [facility]rb[facility]03-28-2022 Nurse Note* Ayala Almonte LPN - [...] provider. Ayala Almonte LPN documented in this encounterMercy Health [facility]05-20-2021 History of Present illness Narrative* Janet [...] 25, 2021 1:26 PM documented in this encounterMercy Health [facility] HospitalEvaluation + Plan note No data available for this section [facility] Evaluation + Plan note Future Appointments Appointment Date:09/15/2022 09:00:00 AM Scheduled Provider:LAY PARKER DO Location:[facility] Appointment Type:[facility] Evaluation + Plan note Future Appointments Appointment Date:09/16/2022 10:30:00 AM Scheduled Provider:LAY PARKER DO Location:[facility] Appointment Type:[facility] Evaluation + Plan note Future Appointments Appointment Date:01/10/2024 09:00:00 AM Scheduled Provider: Location:[facility] Appointment Type:[facility] Mammogram Screening Bilateral w/ Milton Future Scheduled Tests Radiology* MA Mammo Screening Bilateral w/ [place] 01/10/24 [facility] Evaluation + Plan note Future Appointments Appointment Date:04/29/2024 01:00:00 PM Scheduled Provider:PADMINI SEGUNDO MD Location:[facility] Appointment Type[facility] Evaluation + Plan note Future Appointments Appointment Date:07/12/2024 09:00:00 PM Scheduled Provider: Location:XRAY Appointment Type:MRI Pelvis w/ + w/o Contrast Appointment Date:08/16/2024 09:30:00 AM Scheduled Provider:GLENDY SMITH DO Location:UROLOGY Appointment Type:URO Off Proc Cysto Future Scheduled Tests Radiology* MRI Pelvis w/ + w/o Contrast 07/12/24 [facility] evaluation + Plan note Future Appointments Appointment Date:08/16/2024 09:30:00 AM Scheduled Provider:GLENDY SMITH DO Location:UROLOGY Appointment Type:URO Off Proc Cysto [facility] Evaluation + Plan note Future Appointments Appointment Date:02/19/2025 09:00:00 AM Scheduled Provider:GLENDY SMITH DO Location:UROLOGY Appointment Type:[facility] + Plan note Future Appointments Appointment Date:03/26/2025 10:00:00 AM Scheduled Provider:GILMAR JC PA-C Location:[facility] Appointment Type:OSM OV Follow Up Appointment Date:04/03/2025 03:30:00 PM Scheduled Provider:WENDIE LISA Location:UROLOGY Appointment Type:URO [facility] evaluation + Plan note Future Appointments Appointment Date:05/29/2025 11:00:00 AM Scheduled Provider:WENDIE LISA Location:UROLOGY Appointment Type:[facility] evaluation note* Diagnosis Preoperative examination- Primary [...] of both eyes documented in this encounter [facility]* Diagnosis Nuclear sclerotic cataract of both eyes- Primary Senile nuclear sclerosis Nuclear senile cataract of both eyes Nuclear senile cataract of both eyes documented in this encounter [facility]* Diagnosis Pseudophakia- Primary Lens replaced by other means Nuclear senile cataract of both eyes documented in this encounter [facility]* Diagnosis Onset Date Resolution Status Nonrheumatic aortic valve disorder acute Nonrheumatic mitral valve regurgitation acute Nonrheumatic tricuspid valve regurgitation acute Paroxysmal atrial flutter ac roxana Pure hypercholesterolemia ch [facility] Work Phone: Evaluation note* Diagnosis Pseudophakia- Primary Lens replaced by other means Nuclear senile cataract of both eyes documented in this encounter [facility] [place] [facility]* Diagnosis Pseudophakia- Primary Lens replaced by other means documented in this encounter [facility] noteNo assessment information availableWMetroHealth [facility] Work Phone: Evaluation note* Diagnosis Pseudophakia- Primary Lens replaced by other means Choroidal nevus, 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 documented in this encounter [facility]* Diagnosis Pseudophakia- Primary Lens replaced by other means PCO (posterior capsular opacification), bilateral After-cataract, unspecified Retina hole, 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 documented in this encounter [facility]* Diagnosis 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 neoplasm of choroid documented in this encounter [facility]Eval[facility] [place]* Diagnosis Pseudophakia- Primary Lens replaced by other means 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, right PCO (posterior capsular opacification), right After-cataract, unspecified documented in this encounter [facility]Eval[facility] note* Diagnosis Acute hip pain, left Acute left-sided low back pain without sciatica documented in this encounter [facility] [place]* Diagnosis Early dry stage nonexudative age-related macular degeneration of both eyes- Primary Choroidal nevus, right documented in this encounter [facility]Eval[facility] [place] [facility]* Diagnosis Onset Date Resolution Status Admit Date Paroxysmal atrial flutter chronic March 12, 2025 8:48am [facility] Work Phone: History of Past illness Narrative* Problem Noted Date Resolved Date Exudative age-related macula r degeneration, bilateral, with active choroidal neovascularization 02/08/2023 02/08/2023 documented as of this encounter (statuses as of 02/08/2023) [facility] No data available for this section [facility] Progress note No data available for this section [facility] Progress note Author Glendy London [facility] Note Date/Time March 12, 2025 9:24a m [facility]alt System [facility] [address] [place] [address] OFFICE VISIT Date of Service: 03/12/25 MR#: [id number] Acct: [id number] Name: ELISA SELLERS Rep #: [id number] : 1945 Provider: KATIA Wynn Age/Sex: 79/F [facility] Status: Signed HPI HPI History of [...] Monitor Intake Visit Reasons: 1 Y FU Diversional Therapist'S Assistant Required: No Is patient in pain?: No [...] PO ONCE 5 03/12/25 History mg-copper 1 ge-ijlykr-jwdojh capsule (PreserVision AREDS-2) Have you fallen in the past year?: Yes (one fall from trip) [facility] Family history of malignant [...] prior to saving. 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 Lay Parker, DO ~ [facility] Work Phone: Reason for referral (narrative)No reason for referral information availableBlCommunity Regional Medical Center Work Phone: Advance Directives No Advanced Directives Records FoundDocuments on File Type Date Recorded Patient Settlement Agent Expl anation Advance Directive(s) 01/04/2022 9:04 AM Advance Directive(s) 01/04/2022 9:14 AM Advance Directive Response Recorded Date/ Time Living Will Yes January 12, 2022 2:30pm Power of Sprinkler Fitter Apprentice Yes January 12 2:30pm Advance Directive Response Recorded Date/ Time Living Will Yes January 12, 2022 1:30pm Power of Sprinkler Fitter Apprentice Yes January 12 1:30pm Chief Complaint and [...] or prosecute any alcohol or drug abuse patient.[facility] HospitalIn the event this information is protected by the Federal Confidentiality of Alcohol and Drug Abuse Patient Records regulations: The Federal rules restrict any use of the information to criminally investigate or prosecute any alcohol or drug abuse patient.[facility] HospitalIn the event this information is protected by the Federal Confidentiality of Alcohol and Drug Abuse Patient Records regulations: The Federal rules restrict any use of the information to criminally investigate or prosecute any alcohol or drug abuse patient.[facility] HospitalIn the event this information is protected by the Federal Confidentiality of Alcohol and Drug Abuse Patient Records regulations: The Federal rules restrict any use of the information to criminally investigate or prosecute any alcohol or drug abuse patient.[facility] HospitalIn the event this information is protected by the Federal Confidentiality of Alcohol and Drug Abuse Patient Records regulations: The Federal rules restrict any use of the information to criminally investigate or prosecute any alcohol or drug abuse patient.[facility] HospitalIn the event this information is protected by the Federal Confidentiality of Alcohol and Drug Abuse Patient Records regulations: The Federal rules restrict any use of the information to criminally investigate or prosecute any alcohol or drug abuse patient.[facility] HospitalIn the event this information is protected by the Federal Confidentiality of Alcohol and Drug Abuse Patient Records regulations: The Federal rules restrict any use of the information to criminally investigate or prosecute any alcohol or drug abuse patient.[facility] HospitalIn the event this information is protected by the Federal Confidentiality of Alcohol and Drug Abuse Patient Records regulations: The Federal rules restrict any use of the information to criminally investigate or prosecute any alcohol or drug abuse patient.[facility] HospitalIn the event this information is protected by the Federal Confidentiality of Alcohol and Drug Abuse Patient Records regulations: The Federal rules restrict any use of the information to criminally investigate or prosecute any alcohol or drug abuse patient.[facility] HospitalIn the event this information is protected by the Federal Confidentiality of Alcohol and Drug Abuse Patient Records regulations: The Federal rules restrict any use of the information to criminally investigate or prosecute any alcohol or drug abuse patient.[facility] HospitalIn the event this information is protected by the Federal Confidentiality of Alcohol and Drug Abuse Patient Records regulations: The Federal rules restrict any use of the information to criminally investigate or prosecute any alcohol or drug abuse patient.[facility] HospitalIn the event this information is protected by the Federal Confidentiality of Alcohol and Drug Abuse Patient Records regulations: The Federal rules restrict any use of the information to criminally investigate or prosecute any alcohol or drug abuse patient.[facility] HospitalIn the event this information is protected by the Federal Confidentiality of Alcohol and Drug Abuse Patient Records regulations: The Federal rules restrict any use of the information to criminally investigate or prosecute any alcohol or drug abuse patient.[facility] HospitalIn the event this information is protected by the Federal Confidentiality of Alcohol and Drug Abuse Patient Records regulations: The Federal rules restrict any use of the information to criminally investigate or prosecute any alcohol or drug abuse patient.[facility] Reason for Visit (unrecogniz ed section [...] Care Teams (unrecognized sec tion and content) Sales Representative Jewelry Relationship Specialty Start Date End Date Madi Holland PCP - General Family Practice 01/07/14 Sales Representative Jewelry Relationship Specialty Start Date End Date Madi Holland PCP - General Family Practice 01/07/14 Sales Representative Jewelry Relationship Specialty Start Date End Date HollandMadi Caleb PCP - General Family Practice 01/07/14 01/03/22 Lay Parker, DO [address] [place] [address] PCP - General Family Practice 01/04/22 Onexin Yogesh [address] [place] [address] Optometry 01/04/22 Sales Representative Jewelry Relationship Specialty Start Date End Date Lay Parker, DO [address] [place] [address] PCP - General Family Practice 01/04/22 Onexin, Yogesh [address] [facility] [place] [place] [address] Optometry 01/04/22 Sales Representative Jewelry Relationship Specialty Start Date End Date Lay Parker, DO [address] [place] [address] PCP - General Family Practice 01/04/22 Onexin Yogesh [address] [place] [address] Optometry 01/04/22 Sales Representative Jewelry Relationship Specialty Start Date End Date Lay Parker, DO [address] [place] [address] PCP - General Family Practice 01/04/22 Oney, Yogesh [address] [facility] [place] [address] Optometry 01/04/22 Sales Representative Jewelry Relationship Specialty Start Date End Date Lay Parker, DO [address] [place] [address] PCP - General Family Practice 01/04/22 Onexin Yogesh [address] [facility] [place] [address] Optometry 01/04/22 Sales Representative Jewelry Relationship Specialty Start Date End Date Lay Parker, DO [address] [place] [address] PCP - General Family Practice 01/04/22 Yogesh Carson [address] [place] [address] Optometry 01/04/22 Sales Representative Jewelry Relationship Specialty Start Date End Date Lay Parker DO [address] [place] [address] PCP - General Family Medicine 01/04/22 Yogesh Carson [address] [place] [address] Optometry 01/04/22 Sales Representative Jewelry Relationship Specialty Start Date End Date Lay Parker DO [address] [place] [address] PCP - General Family Medicine 01/04/22 Yogesh Carson [address] [place] [address] Optometry 01/04/22 Team Status: Active Member Role Status Dates Dr. Lay Parker , DO Family Provider Active Dr. Lay Parker , DO Primary Care Provider Activ e Team Status: Active Member Role Status Dates Dr. Lay Parker , DO Primary Care Provider Activ e Dr. Carlene Chang MD Attending Provider Active Eleazar Griggs LINEN CHECKER, LINEN CHECKER-C Referring Provider Active Team Status: Active Member Role Status Dates Dr. Lay Parker , DO Primary Care Provider Activ e Eleazar Griggs LINEN CHECKER, LINEN CHECKER-C Attending Provider, Referring Pro vider Active Team Status: Inactive Member Role Status Dates Dr. Lay Parker , DO Primary Care Provider Activ e Dr. Papi Garcia MD Attending Provider, Referring Pro vider Active Sales Representative Jewelry Relationship Specialty Start Date End Date Lay Parker DO [address] [place] [address] PCP - General Family Medicine 01/04/22 Alli Yogesh [address] [place] [address] Optometry 01/04/22 Sales Representative Jewelry Relationship Specialty Start Date End Date Madi [place] PCP - General Family Medicine 01/07/14 01/03/22 Sales Representative Jewelry Relationship Specialty Start Date End Date Lay Parker DO [address] [place] [address] PCP - General Family Medicine 01/04/22 Yogesh Carson [address] [place] [address] Optometry 01/04/22 Team Status: Inactive Member Role [...] Clerdima Moreno PT Position: P3 Scheduling - Field Service Rep Advanced Member Role: Other Name: LAY PARKER DO Position: P4 Physician - Primary Care Med Service: Active Provider Member Role: Primary Care Physician Address: Address: [address] [place] [address]- Care Team Related Persons Name: LORENZO SEE Name: YAO RESENDIZ Address: [address] [facility] [place] [address] Care Team Personnel Name: Arsh Mullins Clerdima Moreno PT Position: P3 Scheduling - Field Service Rep Advanced Member Role: Other Name: LAY PARKER DO Position: P4 Physician - Primary Care Member Role: Primary Care Physician Address: Address: [address] [place] [id number] Care Team Related Persons Name: LORENZO SEE Name: YAO RESENDIZ Address: Home [address] [facility] [place] [id number] INFORMATION SOURCE (unrecogn ized section and content) DATE CREATED AUTHOR 06/15/2024 [facility] DATE CREATED AUTHOR AUTHOR'S ORGANIZ ATION 07/20/2024 [facility] DATE CREATED AUTHOR AUTHOR'S ORGANIZ ATION 03/30/2025 [facility] DATE CREATED AUTHOR AUTHOR'S ORGANIZ ATION 04/06/2025 [facility] DATE CREATED AUTHOR AUTHOR'S ORGANIZ ATION 04/21/2025 [facility] FOR RECORDS PERTAINING TO PATIENTS WHO [...] BE BASED ON THE PRIMARY CLINICAL RECORDS. [facility] [employer] [facility]. provides no warranty or guarantee of the accuracy or completeness of information in this document.
--- NOTE | 2025-04-22 12:32 | STRESSREP ---
Stress Test Report Exercise myocardial perfusion stress test. 80-year-old lady with a history of chest pain Stress protocol: Resting EKG demonstrates normal sinus rhythm with a rate of 60 bpm resting blood pressure is 122/78 mmHg. The patient exercised according to the regular [facility] protocol for a total duration of 7 minutes attaining a maximum heart rate of 137 bpm which was 97% of maximum predicted heart rate; the maximum workload was 10.1 metabolic equivalents. At rest there were no ST or T wave changes noted to suggest ischemia and at peak exercise upsloping ST changes only were noted which did not meet the criteria for ischemia. No clinical angina was noted the test was terminated due to the target heart rate being achieved/fatigue. The peak blood pressure was 156/88 mmHg. Rate-pressure product was 18,400. Myocardial perfusion protocol. 11.8 mCi of technetium 99m sestamibi was injected at rest. The patient exercised according to regular [facility] protocol for total duration of 7 minutes and at peak exercise 34 mCi of technetium 99m sestamibi was injected stress images were obtained stress and rest images were reconstructed in comparing the short axis vertical long and horizontal long axis. Gated images were also obtained. Perfusion SPECT analysis: Review of the stress images demonstrate normal uptake of tracer noted in all areas of the myocardium. The resting images similarly demonstrate normal uptake of tracer noted in all areas of the myocardium. No areas of reversibility are noted to suggest ischemia no previous infarct was noted. Gated SPECT analysis: The gated ejection fraction is 80%. Conclusion: Normal exercise myocardial perfusion stress test at a moderate workload Preserved ejection fraction.
== END | disposition home or self-care (01) ==
PROVIDERS: Referring Provider Physician Assistant Medical; Visit Provider Physician Assistant Medical
DX: R07.9 Chest pain, unspecified (principal)
CPT/HCPCS: 78452; 93017; A9500; A4216